=== PATIENT | male | born 1970 | race Caucasian/White ===

== ENCOUNTER 2016-12-21 10:13 | Inpatient (IN) | payer MEDICARE, MEDICAID ==
[2016-12-21] VITALS (7 sets, daily range): BP systolic 122–149; BP diastolic 66–83
[~2016-12-21] VITALS: Ht 157.5 cm; Wt 79.4 kg
[~2016-12-21 10:13] MED LIST: ALBUTEROL SULF8.5 GM INH; AMLODIPINE BESYL5 MG ORAL; ATORVASTATIN CA20 MG ORAL; BACK STABILIZE1 EACH MC; BETHANECHOL CHL10 MG ORAL; BETHANECHOL CHLO5 MG ORAL; CARVEDILOL6.25 MG ORAL; CELEXA20 MG ORAL; CLOZAPINE25 MG PO; CLOZARIL100 MG ORAL; COLACE100 MG ORAL; COREG6.25 MG ORAL; DEPAKOTE250 MG ORAL; DEPAKOTE500 MG PO; DIOVAN160 MG ORAL; DOCUSATE SODIU100 MG PO; DOK100 M2 PO; DOMEBORO PACKE1 EACH TP; DSS100 MG PO; ECONAZOLE NITRA15 GM TOP; FISH OIL 1,0001 EAC1 ORAL; IBUPROFEN600 MG ORAL; KEPPRA LIQ100 MG/1 M ORAL; KEPPRA LIQ100 MG/1 M PO; KEPPRA500 M3 ORAL; KEPPRA500 MG ORAL; KLONOPIN0.5 MG ORAL; KLONOPIN1 MG ORAL; LACTULOSE20 GM/301 ORAL; LEVETIRACE100 MG/1 M PO; LIPITOR20 MG ORAL; LOSARTAN POTASS50 MG ORAL; METOPROLOL TART25 MG ORAL; MIRALAX17 G2 ORAL; NAPROXEN500 M2 PO; NORVASC2.5 MG ORAL; OMEPRAZOLE20 M2 ORAL; OMEPRAZOLE40 M1 PO; PRILOSEC OTC20 MG ORAL; PRILOSEC20 MG ORAL; PRILOSEC40 MG ORAL; PROAIR HFA8.5 GM INH; RANITIDINE HCL150 MG ORAL; RESTORIL15 MG ORAL; SERTRALINE HCL25 MG ORAL; SETRALINE PO; SIMVASTATIN40 MG ORAL; TOPAMAX100 MG ORAL; TOPIRAGEN50 MG PO; TOPIRAMATE100 MG ORAL; TOPIRAMATE25 MG ORAL; TRAMADOL HCL50 MG ORAL; TRILEPTAL150 M2 ORAL; TRILEPTAL150 MG ORAL; TRILEPTAL150 MG PO; TRILEPTAL600 MG PO; UNOBMED; VITAMIN D35000 UNI2 PO; ZOCOR20 M1 ORAL; ZOCOR40 MG ORAL; ZOFRAN ODT4 MG ORAL; ZOLOFT25 MG ORAL; [UNRECOGNIZED DRUG - OTHER] TOPIC
[2016-12-21] MEDS ORDERED: LORazepam Inj 2mg/ml 1ml IV ONE ×2 (10:30→12:30)
[2016-12-21] MEDS ORDERED: levETIRAcetam 500 MG in D5W 110 ML IVPB ONE (10:30)
[2016-12-21] MEDS ORDERED: levETIRAcetam 500mg vial IV ONE (10:36)
--- NOTE | 2016-12-21 10:41 | Emergency Room Report ---
History of Present Illness General Chief Complaint: Seizure Source: Medical Record Present Illness HPI Patient presents with complaints of seizure activity Patient has known history of seizures Was here last in August with intractable seizures This was reportedly seen by family Patient himself was postictal and history is limited There was no reports of recent trauma No reports of recent fever Patient is beginning to become more awake Allergies: Coded Allergies: PHENYTOIN (Verified Allergy, Mild, Rash, 10/18/15) stated patient had a rash reaction to dilantin PENICILLINS (Unverified Allergy, Unknown, 01/29/16) TRAMADOL (Unverified Allergy, Unknown, 09/24/14) Patient History Limited by: medical condition Past Medical History: see triage record Pertinent Family History: unable to obtain Reviewed Nursing Documentation: PMH: Agreed, PSxH: Agreed Nursing Documentation-PMH Hx Cardiac Problems: Yes Hx Hypertension: Yes Hx Asthma: Yes Hx Diabetes: Yes Hx Cancer: No Hx Gastrointestinal Problems: Yes History Of Psychiatric Problem: Yes Hx Neurological Problems: Yes Hx Cerebrovascular Accident: Yes Hx Seizures: Yes Hx Epilepsy: Yes Hx Headaches: Yes Review of Systems All Other Systems: limited - Other than the ones mentioned in the history of present illness all others are reviewed however they do stay limited due to the patient's mental status Physical Exam Vital Signs Date Time Temp Pulse Resp B/P Pulse Ox O2 Delivery O2 Flow Rate FiO2 12/21/16 10:05 98.2 88 16 126/76 99 Room Air Sp02 EP Interpretation: reviewed, normal General Appearance: no apparent distress Head: normocephalic, atraumatic Eyes: bilateral eye EOMI, bilateral eye PERRL ENT: normal pharynx, dry mucus membranes Neck: supple, thyroid normal Respiratory: lungs clear Cardiovascular #1: regular rate, rhythm, no edema Gastrointestinal: soft, no mass Genitourinary: no CVA tenderness Musculoskeletal: normal inspection Neurologic: alert, oriented x3, responsive Skin: no rash Lymphatic: no adenopathy Medical Decision Making Diagnostic Impression: Primary Impression: Seizure disorder, complex partial, with intractable epilepsy ER Course Patient has had previous visit with the seizure activity At this time repeat imaging was not obtained initially Patient's baseline blood work are appropriate Antiepileptic medications are provided Patient did have seizure activity in the emergency room Prompting the need for further inpatient care Labs Test 12/21/16 10:40 12/21/16 11:15 12/22/16 05:30 12/22/16 07:05 White Blood Count 4.2 K/UL (4.8-10.8) 4.1 K/UL (4.8-10.8) Red Blood Count 5.31 M/UL (4.70-6.10) 5.96 M/UL (4.70-6.10) Hemoglobin 15.3 G/DL (14.2-18.0) 17.0 G/DL (14.2-18.0) Hematocrit 47.1 % (42.0-52.0) 52.7 % (42.0-52.0) Mean Corpuscular Volume 89 FL (80-99) 88 FL (80-99) Mean Corpuscular Hemoglobin 28.9 PG (27.0-31.0) 28.5 PG (27.0-31.0) Mean Corpuscular Hemoglobin Concent 32.6 G/DL (32.0-36.0) 32.3 G/DL (32.0-36.0) Red Cell Distribution Width 12.0 % (11.6-14.8) 11.8 % (11.6-14.8) Platelet Count 161 K/UL (150-450) 177 K/UL (150-450) Mean Platelet Volume 5.6 FL (6.5-10.1) 5.6 FL (6.5-10.1) Neutrophils (%) (Auto) 55.8 % (45.0-75.0) 59.1 % (45.0-75.0) Lymphocytes (%) (Auto) 27.3 % (20.0-45.0) 24.0 % (20.0-45.0) Monocytes (%) (Auto) 10.8 % (1.0-10.0) 10.0 % (1.0-10.0) Eosinophils (%) (Auto) 4.6 % (0.0-3.0) 5.5 % (0.0-3.0) Basophils (%) (Auto) 1.6 % (0.0-2.0) 1.3 % (0.0-2.0) Sodium Level 141 mEQ/L (135-145) 140 mEQ/L (135-145) Potassium Level 4.1 mEQ/L (3.4-4.9) 4.1 mEQ/L (3.4-4.9) Chloride Level 102 mEQ/L (98-107) 99 mEQ/L (98-107) Carbon Dioxide Level 21 mEQ/L (20-30) 22 mEQ/L (20-30) Anion Gap 18 (5-15) 19 (5-15) Blood Urea Nitrogen 8 mg/dL (7-23) 6 mg/dL (7-23) Creatinine 0.7 mg/dL (0.7-1.2) 0.7 mg/dL (0.7-1.2) Estimat Glomerular Filtration Rate > 60 mL/min (>60) > 60 mL/min (>60) Glucose Level 91 mg/dL (74-106) 99 mg/dL (74-106) Calcium Level 9.2 mg/dL (8.6-10.2) 9.7 mg/dL (8.6-10.2) Total Bilirubin < 0.2 mg/dL (0.0-1.2) Aspartate Amino Transf (AST/SGOT) 16 U/L (5-40) Alanine Aminotransferase (ALT/SGPT) 14 U/L (3-41) Alkaline Phosphatase 62 U/L (40-129) Total Creatine Kinase 99 U/L (38-174) Creatine Kinase MB 1.6 ng/mL (< 6.7) Creatine Kinase MB Relative Index 1.6 Troponin I < 0.30 ng/mL (<=0.30) Total Protein 7.0 g/dL (6.6-8.7) Albumin 4.2 g/dL (3.5-5.2) Globulin 2.8 g/dL Albumin/Globulin Ratio 1.5 (1.0-2.7) Lipase 25 U/L (< 60) Urine Color Pale yellow Urine Appearance Clear Urine pH 8 (4.5-8.0) Urine Specific [place] 1.015 (1.005-1.035) Urine Protein Negative (NEGATIVE) Urine Glucose (UA) Negative (NEGATIVE) Urine Ketones 1+ (NEGATIVE) Urine Occult Blood Negative (NEGATIVE) Urine Nitrite Negative (NEGATIVE) Urine Bilirubin Negative (NEGATIVE) Urine Urobilinogen Normal MG/DL (0.0-1.0) Urine Leukocyte Esterase Negative (NEGATIVE) Urine Opiates Screen Negative (NEGATIVE) Urine Barbiturates Screen Positive (NEGATIVE) Phencyclidine (PCP) Screen Negative (NEGATIVE) Urine Amphetamines Screen Negative (NEGATIVE) Urine Benzodiazepines Screen Negative (NEGATIVE) Urine Cocaine Screen Negative (NEGATIVE) Urine Marijuana (THC) Screen Negative (NEGATIVE) Valproic Acid (Depakene) Level 70 ug/mL (50-100) Test 12/23/16 05:00 White Blood Count 4.8 K/UL (4.8-10.8) Red Blood Count 5.02 M/UL (4.70-6.10) Hemoglobin 14.4 G/DL (14.2-18.0) Hematocrit 44.0 % (42.0-52.0) Mean Corpuscular Volume 88 FL (80-99) Mean Corpuscular Hemoglobin 28.7 PG (27.0-31.0) Mean Corpuscular Hemoglobin Concent 32.8 G/DL (32.0-36.0) Red Cell Distribution Width 11.6 % (11.6-14.8) Platelet Count 156 K/UL (150-450) Mean Platelet Volume 6.0 FL (6.5-10.1) Neutrophils (%) (Auto) 51.4 % (45.0-75.0) Lymphocytes (%) (Auto) 32.5 % (20.0-45.0) Monocytes (%) (Auto) 9.3 % (1.0-10.0) Eosinophils (%) (Auto) 5.4 % (0.0-3.0) Basophils (%) (Auto) 1.3 % (0.0-2.0) Sodium Level 134 mEQ/L (135-145) Potassium Level 3.7 mEQ/L (3.4-4.9) Chloride Level 95 mEQ/L (98-107) Carbon Dioxide Level 24 mEQ/L (20-30) Anion Gap 15 (5-15) Blood Urea Nitrogen 10 mg/dL (7-23) Creatinine 0.6 mg/dL (0.7-1.2) Estimat Glomerular Filtration Rate > 60 mL/min (>60) Glucose Level 93 mg/dL (74-106) Calcium Level 8.6 mg/dL (8.6-10.2) Valproic Acid (Depakene) Level 80 ug/mL (50-100) Rhythm Strip Diag. Results EP Interpretation: yes Rate: 77 Rhythm: NSR, no PVC's, no ectopy Chest X-Ray Diagnostic Results EP Interpretation: Yes Findings: no consolidation, no effusion, no pneumothorax Number of Views: 1 Last Vital Signs Date Time Temp Pulse Resp B/P Pulse Ox O2 Delivery O2 Flow Rate FiO2 12/21/16 10:05 98.2 88 16 126/76 99 Room Air Status: improved Disposition: ADMITTED INPATIENT Condition: Serious AMINATA MONCADA D.O. Dec 21, 2016 10:41
[2016-12-21 11:01] LABS: BASOPHILS % (AUTO) 1.6 % (0.0-2.0); EOSINOPHILS % (AUTO) 4.6 % (0.0-3.0); LYMPHOCYTES % (AUTO) 27.3 % (20.0-45.0); MEAN CORPUSCULAR HEMOGLOBIN 28.9 PG (27.0-31.0); MEAN CORPUSCULAR HGB CONC 32.6 G/DL (32.0-36.0); MEAN CORPUSCULAR VOLUME 89 FL (80-99); MEAN PLATELET VOLUME 5.6 FL (6.5-10.1); MONOCYTES % (AUTO) 10.8 % (1.0-10.0); NEUTROPHILS % (AUTO) 55.8 % (45.0-75.0); PLATELET COUNT 161 K/UL (150-450); RED BLOOD COUNT 5.31 M/UL (4.70-6.10); WHITE BLOOD COUNT 4.2 K/UL (4.8-10.8)
[2016-12-21 11:06] LABS: ALANINE AMINOTRANSFERASE 14 U/L (3-41); ALBUMIN/GLOBULIN RATIO 1.5 (1.0-2.7); ANION GAP 18 (5-15); ASPARTATE AMINO TRANSFERASE 16 U/L (5-40); CALCIUM 9.2 mg/dL (8.6-10.2); CARBON DIOXIDE 21 mEQ/L (20-30); CHLORIDE 102 mEQ/L (98-107); CREATININE 0.7 mg/dL (0.7-1.2); GLOMERULAR FILTRATION RATE > 60 mL/min (>60); HEMOLYSIS 10; LIPASE 25 U/L (< 60); POTASSIUM 4.1 mEQ/L (3.4-4.9); SODIUM 141 mEQ/L (135-145); TROPONIN I < 0.30 ng/mL (<=0.30)
[2016-12-21 11:16] LABS: CKMB 1.6 ng/mL (< 6.7)
[2016-12-21 11:33] LABS: APPEARANCE,URINE CLEAR; KETONES,URINE 1+ (NEGATIVE); LEUKOCYTE ESTERASE ,URINE NEGATIVE (NEGATIVE); NITRITE,URINE NEGATIVE (NEGATIVE); PH,URINE 8 (4.5-8.0); PROTEIN,URINE NEGATIVE (NEGATIVE); UROBILINOGEN,URINE NORMAL MG/DL (0.0-1.0)
--- NOTE | 2016-12-21 12:09 | Diagnostic Imaging Report ---
Indication: Chest pain Technique: One view of the chest Comparison: 08/31/2016 Findings: Slightly better inspiration on the current exam. Lungs and pleural spaces are clear. Previously demonstrated pulmonary vascular prominence is not evident. The heart size is normal Impression: No acute process
[2016-12-21] MEDS ORDERED: Lidocaine 1% Plain 30 ml INJ ONE (13:00)
[2016-12-21] MEDS ORDERED: Heparin 2000 units/Ns 1000ml IV ONE (13:00)
--- NOTE | 2016-12-21 14:10 | Diagnostic Imaging Report ---
Indications: Needs long-term IV access Technique: Ultrasound confirms patent compressible right basilic vein. Total sterile technique, including sterile probe cover and sterile gel, hat, mask,, sterile gown, large sterile drape, and preparation with 2% chlorhexidine utilized. Local anesthesia with 1% lidocaine. Under real-time ultrasound guidance, puncture is a vein using 21-gauge needle, documented and archived, passage 0.018 guidewire under direct fluoroscopy, which was used to determine appropriate catheter length, exchange for 5 Wallisian peel-away sheath. 5 Wallisian Bard dual-lumen power PICC cut to 37 cm. It was inserted through the peel-away sheath. Peel-away sheath and guidewire removed. Catheter fixed to the skin. Both catheter ports aspirated and flushed. Patient tolerated procedure well, without immediate complication. Digital radiograph documents satisfactory catheter tip position, at the cavoatrial junction. Total fluoroscopy time there are 0.7 minutes. Total dose area product 32 dGycm2 Impression: Successful placement of right arm PICC under sonographic and fluoroscopic guidance, as described above.
[2016-12-21] MEDS ORDERED: Norco 5mg/325mg tab ORAL PRN (17:30)
[2016-12-21] MEDS ORDERED: Albuterol 90mcg Inhaler 8gm INH PRN (17:30)
[2016-12-21] MEDS: LORazepam Inj 2mg/ml 1ml IV PRN (20:45)
[2016-12-21] MEDS: Atorvastatin 20mg tab ORAL SCH (20:48)
[2016-12-21] MEDS: Bethanechol 10mg Tab ORAL SCH (20:49)
[2016-12-22] VITALS: BP 128/80
--- NOTE | 2016-12-22 02:58 | History and Physical Report ---
DATE OF ADMISSION: 12/21/2016 CHIEF COMPLAINT: The patient is a 46-year-old male with a history of seizure disorder, who presents with a chief complaint of seizure. HISTORY OF PRESENT ILLNESS: The patient has a history of seizure disorder. The patient was last admitted to [facility] in August 2016 after having a seizure. The patient presented to [facility] emergency room after having a witnessed seizure at home. The patient then had a seizure in the emergency room. The patient is admitted for breakthrough seizures and seizure disorder. REVIEW OF SYSTEMS: Constitutional: The patient denies weight loss or weight gain. The patient denies fevers or chills. HEENT: The patient denies ear or throat pain. Cardiovascular: The patient denies palpitations or chest pain. Chest: The patient denies wheeze or shortness of breath. Abdomen: The patient denies nausea, vomiting, diarrhea, or constipation. Genitourinary: The patient denies dysuria or increased frequency of urination. Neuromuscular: The patient complains of seizure disorders as above. The patient denies generalized weakness. PAST MEDICAL HISTORY: Significant for, 1. Seizure disorder. 2. Hypertension. 3. Hypercholesterolemia. PAST SURGICAL HISTORY: Significant for nasal septal plasty. CURRENT MEDICATIONS: 1. Albuterol metered-dose inhaler two puffs p.o. q.i.d. p.r.n. 2. Amlodipine 2.5 mg one tablet p.o. daily. 3. Lipitor 20 mg one tablet p.o. nightly. 4. Bethanechol 10 mg one tablet p.o. three times daily. 5. Calcium acetate one packet p.o. daily. 6. Vitamin D3 5000 units daily. 7. Klonopin 1 mg one tablet p.o. nightly. 8. Depakote 500 mg one tablet p.o. twice daily. 9. Ibuprofen 800 mg one tablet by mouth q.8 hours. p.r.n. 10. Keppra 1000 mg p.o. twice daily. 11. Losartan 50 mg one tablet p.o. daily. 12. Fish oil 1000 mg one tablet p.o. daily. 13. Omeprazole 40 mg one tablet p.o. daily. 14. Zantac 150 mg one tablet p.o. twice daily. 15. Zoloft 25 mg one tablet p.o. daily. 16. Restoril 15 mg one tablet p.o. nightly. 17. Topamax 25 mg one tablet p.o. daily. ALLERGIES: 1. PENICILLIN. 2. DILANTIN. 3. TRAMADOL. SOCIAL HISTORY: The patient is single. The patient is currently unemployed. The patient denies tobacco use. The patient admits to occasional alcohol use. PHYSICAL EXAMINATION: VITAL SIGNS: Temperature 98.2, respirations 16, pulse 92, blood pressure 142/76. GENERAL: The patient is a well-developed and well-nourished male, in no apparent distress. HEENT: Eyes, pupils are equal and responsive to light and accommodation. Extraocular movements are intact. NECK: Supple without lymphadenopathy. CHEST: Lungs are clear to auscultation bilaterally without wheezes or rales. CARDIOVASCULAR: Regular rhythm and rate. S1 and S2 are normal without murmurs, rubs, or gallops. . ABDOMEN: Soft, nontender, and nondistended. Positive bowel sounds. No evidence of hepatosplenomegaly. Currently, no rebound or guarding noted. EXTREMITIES: Negative for clubbing, cyanosis, or edema. RECTAL/GENITAL: Refused. NEUROLOGICALLY: The patient is postictal. NEUROLOGIC: Cranial nerves II through XII are grossly intact without focal deficits. Motor strength is 5/5 bilaterally. Deep tendon reflexes are 2+ plantar. LABORATORY STUDIES: WBC 4.2, hemoglobin 15.2, hematocrit 47.1, platelets 161,000, sodium 141, potassium 4.1, chloride 102, CO2 21, BUN 18, creatinine 0.7, and glucose 91. Troponin less than 0.3. ASSESSMENT: This is a 46-year-old male. 1. Intractable seizure. 2. Seizure disorder. 3. Hypertension. 4. Hypercholesterolemia. 5. Left shoulder pain. 6. Depression. TREATMENT: 1. Seizure disorder. A Neurology consultation obtained with Dr. Martínez. Restart Keppra and Depakote as above. Depakote level is pending. We will follow recommendations of Neurology. The patient may require an EEG during this hospitalization. 2. Hypertension. Continue Cozaar and Norvasc as above. 3. Hypercholesterolemia. Continue Lipitor as above. 4. Left shoulder pain. A left shoulder x-ray is pending. 5. Depression. Continue Zoloft as above. Jimmie Lang M.D. DR: ISAIAS JOB#: [id number] CC: HARRY
[2016-12-22 04:00] VITALS: BP 129/88
[2016-12-22 07:47] LABS: BASOPHILS % (AUTO) 1.3 % (0.0-2.0); EOSINOPHILS % (AUTO) 5.5 % (0.0-3.0); MEAN CORPUSCULAR HEMOGLOBIN 28.5 PG (27.0-31.0); MEAN CORPUSCULAR HGB CONC 32.3 G/DL (32.0-36.0); MEAN CORPUSCULAR VOLUME 88 FL (80-99); MEAN PLATELET VOLUME 5.6 FL (6.5-10.1); NEUTROPHILS % (AUTO) 59.1 % (45.0-75.0); PLATELET COUNT 177 K/UL (150-450); RED BLOOD COUNT 5.96 M/UL (4.70-6.10); RED CELL DISTRIBUTION WIDTH 11.8 % (11.6-14.8); WHITE BLOOD COUNT 4.1 K/UL (4.8-10.8)
[2016-12-22 07:57] VITALS: BP 136/98
[2016-12-22 08:06] LABS: ANION GAP 19 (5-15); CALCIUM 9.7 mg/dL (8.6-10.2); CARBON DIOXIDE 22 mEQ/L (20-30); CHLORIDE 99 mEQ/L (98-107); CREATININE 0.7 mg/dL (0.7-1.2); GLOMERULAR FILTRATION RATE > 60 mL/min (>60); HEMOLYSIS 8; POTASSIUM 4.1 mEQ/L (3.4-4.9); SODIUM 140 mEQ/L (135-145)
[2016-12-22] MEDS ORDERED: Sertraline 50mg tab ORAL SCH (09:00)
[2016-12-22] MEDS ORDERED: Topiramate 25mg tab ORAL SCH (09:00)
[2016-12-22] MEDS: Bethanechol 10mg Tab ORAL SCH ×3 (09:02→17:17)
[2016-12-22] MEDS: Losartan 50mg tab ORAL SCH (09:03)
[2016-12-22] MEDS: Norco 10mg/325mg tab ORAL PRN ×2 (09:07→13:42)
--- NOTE | 2016-12-22 10:48 | History & Physical ---
History and Physical History & Physicial Dictated no. [id number]. EUGENIO OROZCO Dec 22, 2016 10:48
--- NOTE | 2016-12-22 10:49 | Diagnostic Imaging Report ---
Indication: PAIN Technique: 3 views of the left shoulder Comparison: none Findings: No acute fractures. No dislocations. Joint spaces are preserved Impression:Negative
--- NOTE | 2016-12-22 11:05 | Internal Med Progress Note ---
Subjective Date of Service: Dec 22, 2016 Physician Name Jimmie Orozco Attending Physician Jimmie Orozco Current Medications Medications (Trade) Dose Ordered Sig/Rufus Route PRN Reason Start Time Stop Time Status Last Admin Dose Admin Acetaminophen (Tylenol) 650 mg Q4H PRN ORAL Mild Pain (Pain Scale 1-3) 12/21/16 17:30 01/20/17 17:29 Acetaminophen/ Hydrocodone Bitart ([place] 10/325) 1 ea Q4H PRN ORAL Severe Pain (Pain Scale 7-10) 12/21/16 17:30 12/28/16 17:29 12/22/16 09:07 Acetaminophen/ Hydrocodone Bitart ([place] 5/325) 1 tab Q4H PRN ORAL Moderate Pain (Pain Scale 4-6) 12/21/16 17:30 12/28/16 17:29 Albuterol Sulfate (Proventil MDI) 2 puff Q6H PRN INH Shortness of Breath 12/21/16 17:30 01/20/17 17:29 Amlodipine Besylate (Norvasc) 2.5 mg DAILY ORAL 12/22/16 09:00 01/21/17 08:59 12/22/16 09:03 Atorvastatin Calcium (Lipitor) 20 mg BEDTIME ORAL 12/21/16 21:00 01/20/17 20:59 12/21/16 20:48 Bethanechol Chloride (Urecholine) 10 mg THREE TIMES A DAY ORAL 12/21/16 21:00 01/20/17 20:59 12/22/16 09:02 Dextrose (Dextrose 50%) STAT PRN IV Hypoglycemia 12/21/16 17:30 01/20/17 17:29 Divalproex Sodium (Depakote) 750 mg Q12HR ORAL 12/21/16 21:00 01/20/17 20:59 12/22/16 09:03 Fish Oil (Fish Oil) 1,000 mg DAILY ORAL 12/22/16 09:00 01/21/17 08:59 12/22/16 09:02 Levetiracetam (Keppra) 1,000 mg Q12HR ORAL 12/21/16 21:00 01/20/17 20:59 12/22/16 09:03 Lorazepam (Ativan 2mg/ml 1ml) 2 mg Q4H PRN IV For Seizures 12/21/16 18:00 12/28/16 17:59 12/21/16 20:45 Losartan Potassium (Cozaar) 50 mg DAILY ORAL 12/22/16 09:00 01/21/17 08:59 12/22/16 09:03 Pantoprazole (Protonix) 40 mg DAILY ORAL 12/22/16 09:00 01/21/17 08:59 12/22/16 09:03 Sertraline HCl (Zoloft) 25 mg DAILY ORAL 12/22/16 09:00 01/21/17 08:59 12/22/16 09:02 Sodium Chloride (0.45% NS 1000ml) 1,000 ml @ 75 mls/hr [id number] IV 12/21/16 19:15 01/20/17 19:14 12/22/16 08:59 Topiramate (Topamax) 25 mg DAILY ORAL 12/22/16 09:00 01/21/17 08:59 12/22/16 09:03 Allergies: Coded Allergies: PHENYTOIN (Verified Allergy, Mild, Rash, 10/18/15) stated patient had a rash reaction to dilantin PENICILLINS (Unverified Allergy, Unknown, 01/29/16) TRAMADOL (Unverified Allergy, Unknown, 09/24/14) ROS Limited/Unobtainable: No Constitutional: Reports: no symptoms HEENT: Reports: no symptoms Cardiovascular: Reports: no symptoms Respiratory: Reports: no symptoms Gastrointestinal/Abdominal: Reports: no symptoms Genitourinary: Reports: no symptoms Neurologic/Psychiatric: Reports: no symptoms Subjective 46 YO M admitted with seizure. Another witnessed seizure overnight. Await Neurology consult. Objective Last Vital Signs Date Time Temp Pulse Resp B/P Pulse Ox O2 Delivery O2 Flow Rate FiO2 12/22/16 09:03 136/98 12/22/16 09:03 78 12/22/16 07:57 97.3 20 96 Room Air 12/22/16 04:00 2.0 28 General Appearance: WD/WN, no apparent distress, other - Postictal EENT: PERRL/EOMI, normal ENT inspection, TMs normal Neck: non-tender, normal alignment, supple, normal inspection Cardiovascular: normal peripheral pulses, normal rate, regular rhythm, no gallop/murmur, no JVD Respiratory/Chest: chest wall non-tender, lungs clear, normal breath sounds, no respiratory distress, no accessory muscle use Abdomen: normal bowel sounds, non tender, soft, no organomegaly, no mass Extremities: normal range of motion 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, no motor/sensory deficits, other - postictal Skin: normal pigmentation, warm/dry Laboratory Tests Test 12/21/16 11:15 12/22/16 05:30 12/22/16 07:05 Urine Color Pale yellow Urine Appearance Clear Urine pH 8 (4.5-8.0) Urine Specific [place] 1.015 (1.005-1.035) Urine Protein Negative (NEGATIVE) Urine Glucose (UA) Negative (NEGATIVE) Urine Ketones 1+ (NEGATIVE) H Urine Occult Blood Negative (NEGATIVE) Urine Nitrite Negative (NEGATIVE) Urine Bilirubin Negative (NEGATIVE) Urine Urobilinogen Normal MG/DL (0.0-1.0) Urine Leukocyte Esterase Negative (NEGATIVE) Urine Opiates Screen Negative (NEGATIVE) Urine Barbiturates Screen Positive (NEGATIVE) H Phencyclidine (PCP) Screen Negative (NEGATIVE) Urine Amphetamines Screen Negative (NEGATIVE) Urine Benzodiazepines Screen Negative (NEGATIVE) Urine Cocaine Screen Negative (NEGATIVE) Urine Marijuana (THC) Screen Negative (NEGATIVE) White Blood Count 4.1 K/UL (4.8-10.8) L Red Blood Count 5.96 M/UL (4.70-6.10) Hemoglobin 17.0 G/DL (14.2-18.0) Hematocrit 52.7 % (42.0-52.0) H Mean Corpuscular Volume 88 FL (80-99) Mean Corpuscular Hemoglobin 28.5 PG (27.0-31.0) Mean Corpuscular Hemoglobin Concent 32.3 G/DL (32.0-36.0) Red Cell Distribution Width 11.8 % (11.6-14.8) Platelet Count 177 K/UL (150-450) Mean Platelet Volume 5.6 FL (6.5-10.1) L Neutrophils (%) (Auto) 59.1 % (45.0-75.0) Lymphocytes (%) (Auto) 24.0 % (20.0-45.0) Monocytes (%) (Auto) 10.0 % (1.0-10.0) Eosinophils (%) (Auto) 5.5 % (0.0-3.0) H Basophils (%) (Auto) 1.3 % (0.0-2.0) Sodium Level 140 mEQ/L (135-145) Potassium Level 4.1 mEQ/L (3.4-4.9) Chloride Level 99 mEQ/L (98-107) Carbon Dioxide Level 22 mEQ/L (20-30) Anion Gap 19 (5-15) H Blood Urea Nitrogen 6 mg/dL (7-23) L Creatinine 0.7 mg/dL (0.7-1.2) Estimat Glomerular Filtration Rate > 60 mL/min (>60) Glucose Level 99 mg/dL (74-106) Calcium Level 9.7 mg/dL (8.6-10.2) Valproic Acid (Depakene) Level 70 ug/mL (50-100) Intake and Output 12/21/16 12/22/16 19:00 07:00 Intake Total 1460 ml 900 ml Output Total 750 ml 1300 ml Balance 710 ml -400 ml IV Total 1460 ml 900 ml Output Urine Total 750 ml 1300 ml # Voids 3 # Bowel Movements 1 Assessment/Plan Problem List: (1) Shoulder pain, left Assessment & Plan: Await xray. (2) Seizure disorder Assessment & Plan: Await neurology consult. Cont keppra and depakote. (3) HTN (hypertension) Assessment & Plan: Cont norvasc and Cozaar. (4) Uncontrolled seizures (5) Hypercholesteremia (6) Depression Assessment & Plan: Cont zoloft. JIMMIE OROZCO Dec 22, 2016 11:05
[2016-12-22 11:21] VITALS: BP 121/77
--- NOTE | 2016-12-22 11:30 | Neurology Progress Note ---
Interim History Interim History ROS Limited/Unobtainable: No Objective Physical Exam Last Vital Signs Date Time Temp Pulse Resp B/P Pulse Ox O2 Delivery O2 Flow Rate FiO2 12/22/16 11:21 97.7 83 20 121/77 98 Room Air 12/22/16 04:00 2.0 28 Laboratory Tests Test 12/22/16 05:30 12/22/16 07:05 White Blood Count 4.1 K/UL (4.8-10.8) L Red Blood Count 5.96 M/UL (4.70-6.10) Hemoglobin 17.0 G/DL (14.2-18.0) Hematocrit 52.7 % (42.0-52.0) H Mean Corpuscular Volume 88 FL (80-99) Mean Corpuscular Hemoglobin 28.5 PG (27.0-31.0) Mean Corpuscular Hemoglobin Concent 32.3 G/DL (32.0-36.0) Red Cell Distribution Width 11.8 % (11.6-14.8) Platelet Count 177 K/UL (150-450) Mean Platelet Volume 5.6 FL (6.5-10.1) L Neutrophils (%) (Auto) 59.1 % (45.0-75.0) Lymphocytes (%) (Auto) 24.0 % (20.0-45.0) Monocytes (%) (Auto) 10.0 % (1.0-10.0) Eosinophils (%) (Auto) 5.5 % (0.0-3.0) H Basophils (%) (Auto) 1.3 % (0.0-2.0) Sodium Level 140 mEQ/L (135-145) Potassium Level 4.1 mEQ/L (3.4-4.9) Chloride Level 99 mEQ/L (98-107) Carbon Dioxide Level 22 mEQ/L (20-30) Anion Gap 19 (5-15) H Blood Urea Nitrogen 6 mg/dL (7-23) L Creatinine 0.7 mg/dL (0.7-1.2) Estimat Glomerular Filtration Rate > 60 mL/min (>60) Glucose Level 99 mg/dL (74-106) Calcium Level 9.7 mg/dL (8.6-10.2) Valproic Acid (Depakene) Level 70 ug/mL (50-100) Impression/Recommendations Problems: (1) Seizure disorder, complex partial, with intractable epilepsy (2) Pseudoseizures (3) Development delay (4) DM (diabetes mellitus) (5) Obesity Status: not improved Recommendations #[id number] WYATT VIVAR Dec 22, 2016 11:30
[2016-12-22] MEDS ORDERED: Tubing IV Secondary IV ONE (13:59)
[2016-12-22] MEDS ORDERED: NS 275ml ONE (13:59)
[2016-12-22] MEDS ORDERED: 1/2 NS 1000ml IV ONE (13:59)
[2016-12-22 16:00] VITALS: BP 134/79
[2016-12-22] MEDS: LORazepam Inj 2mg/ml 1ml IV PRN (19:33)
[2016-12-22 20:00] VITALS: BP 132/89
[2016-12-22] MEDS: Atorvastatin 20mg tab ORAL SCH (20:05)
--- NOTE | 2016-12-22 20:37 | Consultation ---
DATE OF CONSULTATION: 12/22/2016 NEUROLOGICAL CONSULTATION CONSULTING PHYSICIAN: Nikunj Martínez M.D. REQUESTING PHYSICIAN: Jimmie Lang M.D. HISTORY OF PRESENT ILLNESS: This is a 46-year-old man, resident of [facility], who was admitted for exacerbation of seizure disorder. The patient is known to have a chronic seizure, poorly controllable with three anticonvulsants. At the emergency room, he had a generalized seizure episode. Paramedics were called to the scene, who was found to be down the block where he lives. A operator engineer arrived to the scene explaining that the patient would faint a seizure whenever he is out of the house in an effort to go back to the . While back in the rescue, he started to have shaking of arms and legs stimulating a seizure. When handed his wallet, his hand articulated to maintain a ripening room operator on it and placed it into his pant pocket. He would interrupt his tremor answering questions. The patient maintained bilateral arms and leg movement with a good facial asymmetry. Complaining of headache. Upon arrival to the hospital, he was becoming more verbal. His vital signs were stable. He was afebrile. He was complaining of a shoulder pain and x-ray of the left shoulder revealed no fracture or dislocation. His chest x-ray with no acute process noted. There was no further paroxysmal activity since admission. The patient appeared to be quite drowsy. PAST MEDICAL HISTORY: The patient has a history of mild dementia, chronic seizure disorder, and multiple CT scans in the past were negative. He has a history of hypertension, history of hyperlipidemia, history of chronic alcohol abuse, and history of depression. The patient has a history of noncompliance, withdrawal of seizures, and history of pseudoseizures. MEDICATIONS: His treatment prior to admission included amlodipine, albuterol, atorvastatin, bethanechol, clonazepam 1 mg at bedtime and 0.5 q.6 hours, Depakote mg b.i.d., ibuprofen, Keppra 1000 mg b.i.d., losartan, omeprazole, ranitidine, sertraline 25 mg daily, Zocor, and topiramate 25 mg daily. ALLERGIES: Penicillin, phenytoin, and tramadol. SOCIAL HISTORY: Resident of [facility]. FAMILY HISTORY: Noncontributory. REVIEW OF SYSTEMS: Complains of pain and aches in his upper extremities mainly in the left shoulder. Complains of having, "seizures the whole day long." He is still verbal. Output was limited. PHYSICAL EXAMINATION: GENERAL: A well-developed, moderately obese man, and found to be asleep. VITAL SIGNS: Stable. He is afebrile. HEENT: Head normocephalic. No evidence of trauma. Eyes, ears, and throat are clear. NECK: Supple. No meningeal signs. Tongue, no signs of injury or trauma. EXTREMITIES: There is acute tenderness when palpated in both shoulders and both arms predominantly left shoulder with the pain increasing with attempting to lift arms. MUSCULOSKELETAL: Peripheral pulses 1+ and symmetric. MENTAL STATUS: Drowsy, but arousable. Briefly open eyes and follows simple command. CRANIAL NERVE II: Pupils both responding to light and accommodation. Extraocular movement intact. CRANIAL NERVE V: Normal corneal responses. CRANIAL NERVE VII: No facial asymmetry. CRANIAL NERVE VIII: Grossly normal hearing. CRANIAL NERVES IX THROUGH XII: With normal limits. MOTOR EXAMINATION: Normal muscle tone. Strength 5/5 in all extremities except proximal aspect of both arms due to pain. Deep tendon reflexes 1+ and symmetric with downgoing toes on both sides. SENSORY EXAM: Normal in all modalities. GAIT: Not tested. IMPRESSION: 1. Chronic seizure disorder with evidence of pseudoseizures, now presenting with exacerbation in the presence of therapeutic level of Depakote. 2. Both upper extremity musculoligamentous sprain. 3. Hypertension. 4. History of substance abuse. 5. Depression. RECOMMENDATION: Adjust further Keppra to 1500 b.i.d. Increase Topamax up to 100 mg daily and to be titrated further up to 300 mg daily. Due to high risk of psychosomatic seizure disorder, will need a Psychiatry evaluation to adjust the treatment of depression properly. We will follow with you. Thank you for allowing me to see this interesting patient in neurological consultation. Nikunj Martínez M.D. DR: CANDIDO JOB#: [id number] CC:
--- NOTE | 2016-12-22 23:11 | Cardiology Report ---
APPROVED REPORT EKG Measurement Heart [id number] Normal sinus rhythm Normal ECG
[2016-12-23] VITALS (7 sets, daily range): BP systolic 117–131; BP diastolic 61–91
--- NOTE | 2016-12-23 00:08 | Consultation ---
DATE OF CONSULTATION: HISTORY OF PRESENT ILLNESS: The patient is a 46-year-old male with a history of seizure disorder as well as depression, developmental delay, back pain, headache, hypokalemia, and constipation, who has been admitted to the hospital for medical stabilization. The patient has a history of noncompliance and therefore he has recurrent episodes of seizure activity. During the evaluation, the patient endorses target symptoms of depressed mood, anhedonia, worthlessness, hopelessness, decreased energy, and poor coping skills. The patient has also poor insight into his medical condition I irritated him in regards to his seizure disorder. He really does not believe that he needs medication. He was he started on antidepressants and this may motivate him to take his medications regularly. He does not endorse any suicidal or homicidal ideation. PAST PSYCHIATRIC HISTORY: He has a history of depressed mood. He was started on Zoloft 25 mg in the morning and then it was increased to 50 mg a day. No suicide attempt in the past. PAST MEDICAL HISTORY: As above. SUBSTANCE ABUSE HISTORY: No known history of illicit drugs or alcohol. MENTAL STATUS EXAMINATION: The patient is alert and oriented x4. Mood is depressed. Affect is constricted. Congruent mood. Thought process is concrete. Thought content, there is no suicidal or homicidal ideation. Insight and judgment is fair ASSESSMENT: AXIS I Major depressive disorder. AXIS II Deferred. AXIS III Seizure disorder. AXIS IV Low. AXIS V Global assessment of functioning is 50. PLAN: 1. The patient will be continued on Zoloft 50 mg in the morning. The Depakote and Topamax will also help his mood. 2. We will continue follow and readjust the medication. Katarzyna Valle M.D. DR: Kerry JOB#: [id number] CC:
[2016-12-23 05:25] LABS: BASOPHILS % (AUTO) 1.3 % (0.0-2.0); EOSINOPHILS % (AUTO) 5.4 % (0.0-3.0); LYMPHOCYTES % (AUTO) 32.5 % (20.0-45.0); MEAN CORPUSCULAR HEMOGLOBIN 28.7 PG (27.0-31.0); MEAN CORPUSCULAR HGB CONC 32.8 G/DL (32.0-36.0); MEAN CORPUSCULAR VOLUME 88 FL (80-99); MONOCYTES % (AUTO) 9.3 % (1.0-10.0); NEUTROPHILS % (AUTO) 51.4 % (45.0-75.0); PLATELET COUNT 156 K/UL (150-450); RED BLOOD COUNT 5.02 M/UL (4.70-6.10); RED CELL DISTRIBUTION WIDTH 11.6 % (11.6-14.8); WHITE BLOOD COUNT 4.8 K/UL (4.8-10.8)
[2016-12-23 05:52] LABS: ANION GAP 15 (5-15); CALCIUM 8.6 mg/dL (8.6-10.2); CARBON DIOXIDE 24 mEQ/L (20-30); CHLORIDE 95 mEQ/L (98-107); CREATININE 0.6 mg/dL (0.7-1.2); GLOMERULAR FILTRATION RATE > 60 mL/min (>60); HEMOLYSIS 3; POTASSIUM 3.7 mEQ/L (3.4-4.9); SODIUM 134 mEQ/L (135-145); VALPROIC ACID 80 ug/mL (50-100)
[2016-12-23] MEDS: Bethanechol 10mg Tab ORAL SCH ×3 (08:59→17:49)
[2016-12-23] MEDS: Losartan 50mg tab ORAL SCH (08:59)
[2016-12-23] MEDS ORDERED: Topiramate 100mg tab ORAL SCH (09:00)
[2016-12-23] MEDS: Sertraline 50mg tab ORAL SCH (09:01)
[2016-12-23] MEDS: LORazepam Inj 2mg/ml 1ml IV PRN ×4 (14:01→20:48)
--- NOTE | 2016-12-23 14:06 | Neurology Progress Note ---
Interim History Interim History ROS Limited/Unobtainable: No Complaints: L shoulder pain, depression. Events: no sz noted Objective Physical Exam Last Vital Signs Date Time Temp Pulse Resp B/P Pulse Ox O2 Delivery O2 Flow Rate FiO2 12/23/16 12:00 97.0 87 17 130/85 97 Room Air 12/23/16 08:00 2.0 12/22/16 04:00 28 Laboratory Tests Test 12/23/16 05:00 White Blood Count 4.8 K/UL (4.8-10.8) Red Blood Count 5.02 M/UL (4.70-6.10) Hemoglobin 14.4 G/DL (14.2-18.0) Hematocrit 44.0 % (42.0-52.0) Mean Corpuscular Volume 88 FL (80-99) Mean Corpuscular Hemoglobin 28.7 PG (27.0-31.0) Mean Corpuscular Hemoglobin Concent 32.8 G/DL (32.0-36.0) Red Cell Distribution Width 11.6 % (11.6-14.8) Platelet Count 156 K/UL (150-450) Mean Platelet Volume 6.0 FL (6.5-10.1) L Neutrophils (%) (Auto) 51.4 % (45.0-75.0) Lymphocytes (%) (Auto) 32.5 % (20.0-45.0) Monocytes (%) (Auto) 9.3 % (1.0-10.0) Eosinophils (%) (Auto) 5.4 % (0.0-3.0) H Basophils (%) (Auto) 1.3 % (0.0-2.0) Sodium Level 134 mEQ/L (135-145) L Potassium Level 3.7 mEQ/L (3.4-4.9) Chloride Level 95 mEQ/L (98-107) L Carbon Dioxide Level 24 mEQ/L (20-30) Anion Gap 15 (5-15) Blood Urea Nitrogen 10 mg/dL (7-23) Creatinine 0.6 mg/dL (0.7-1.2) L Estimat Glomerular Filtration Rate > 60 mL/min (>60) Glucose Level 93 mg/dL (74-106) Calcium Level 8.6 mg/dL (8.6-10.2) Valproic Acid (Depakene) Level 80 ug/mL (50-100) Levetiracetam (Keppra) Level Pending General: well developed, no acute distress, other - obese, very tender L shoulder Head: normocophalic, atraumatic Neck: no rigidity Neurologic Exam Mental Status: awake, alert, other - poor historian Speech: normal speech, no dysarthia Language: normal language, no aphasia Cranial Nerves III, IV, : PERRLA, EOMI, pupils Cranial Nerve V: normal facial sensations, temporales function normal, masseters function normal, pterygoids function normal Cranial Nerve VII: no facial asymmetry, normal facial expressions Cranial Nerve VIII: normal hearing, no nystagmus Cranial Nerve IX: normal palate elevation, gag response Cranial Nerve X: no voice hoarseness Cranial Nerve XI: SCM symmetric, trapezii function normal Cranial Nerve XII: tongue midline, no tongue atrophy/fasciculations Motor System: normal muscle tone, strength 5/5, no involuntary movement, no muscle wasting, other - except proxymal BUE pain Sensory: normal pinprick Coordination: normal finger to nose bilaterally Deep Tendon Reflexes: 0 ankle (L), 0 ankle (R), 0 bicep (L), 0 bicep (R), 0 brachioradialis (L), 0 brachioradialis (R), 0 knee (L), 0 knee (R), 0 tricep (L) , 0 tricep (R) Reflexes: mute plantar (L), mute plantar (R) Impression/Recommendations Problems: (1) Seizure disorder, complex partial, with intractable epilepsy (2) Pseudoseizures (3) Development delay (4) DM (diabetes mellitus) (5) Obesity (6) Shoulder pain, left Status: stable Recommendations #[id number] L shoulder MRI WYATT VIVAR Dec 23, 2016 14:06
--- NOTE | 2016-12-23 15:46 | Internal Med Progress Note ---
Subjective Date of Service: Dec 23, 2016 Physician Name Jimmie Orozco Attending Physician Jimmie Orozco Current Medications Medications (Trade) Dose Ordered Sig/Rufus Route PRN Reason Start Time Stop Time Status Last Admin Dose Admin Acetaminophen (Tylenol) 650 mg Q4H PRN ORAL Mild Pain (Pain Scale 1-3) 12/21/16 17:30 01/20/17 17:29 Acetaminophen/ Hydrocodone Bitart ([place] 10/325) 1 ea Q4H PRN ORAL Severe Pain (Pain Scale 7-10) 12/21/16 17:30 12/28/16 17:29 12/22/16 13:42 Acetaminophen/ Hydrocodone Bitart ([place] 5/325) 1 tab Q4H PRN ORAL Moderate Pain (Pain Scale 4-6) 12/21/16 17:30 12/28/16 17:29 12/22/16 16:29 Albuterol Sulfate (Proventil MDI) 2 puff Q6H PRN INH Shortness of Breath 12/21/16 17:30 01/20/17 17:29 Amlodipine Besylate (Norvasc) 2.5 mg DAILY ORAL 12/22/16 09:00 01/21/17 08:59 12/23/16 09:01 Atorvastatin Calcium (Lipitor) 20 mg BEDTIME ORAL 12/21/16 21:00 01/20/17 20:59 12/22/16 20:05 Bethanechol Chloride (Urecholine) 10 mg THREE TIMES A DAY ORAL 12/21/16 21:00 01/20/17 20:59 12/23/16 12:18 Dextrose (Dextrose 50%) STAT PRN IV Hypoglycemia 12/21/16 17:30 01/20/17 17:29 Divalproex Sodium (Depakote) 750 mg Q12HR ORAL 12/21/16 21:00 01/20/17 20:59 12/23/16 08:56 Fish Oil (Fish Oil) 1,000 mg DAILY ORAL 12/22/16 09:00 01/21/17 08:59 12/23/16 08:57 Levetiracetam (Keppra) 1,500 mg Q12HR ORAL 12/22/16 21:00 01/21/17 20:59 12/23/16 08:56 Lorazepam (Ativan 2mg/ml 1ml) 2 mg Q4H PRN IV For Seizures 12/21/16 18:00 12/28/16 17:59 12/23/16 14:01 Losartan Potassium (Cozaar) 50 mg DAILY ORAL 12/22/16 09:00 01/21/17 08:59 12/23/16 08:59 Pantoprazole (Protonix) 40 mg DAILY ORAL 12/22/16 09:00 01/21/17 08:59 12/23/16 08:57 Sertraline HCl (Zoloft) 50 mg DAILY ORAL 12/23/16 09:00 01/22/17 08:59 12/23/16 09:01 Sodium Chloride (0.45% NS 1000ml) 1,000 ml @ 75 mls/hr [id number] IV 12/21/16 19:15 01/20/17 19:14 12/23/16 11:24 Topiramate (Topamax) 100 mg DAILY ORAL 12/23/16 09:00 01/22/17 08:59 12/23/16 08:57 Allergies: Coded Allergies: PHENYTOIN (Verified Allergy, Mild, Rash, 10/18/15) stated patient had a rash reaction to dilantin PENICILLINS (Unverified Allergy, Unknown, 01/29/16) TRAMADOL (Unverified Allergy, Unknown, 09/24/14) ROS Limited/Unobtainable: No Constitutional: Reports: no symptoms HEENT: Reports: no symptoms Cardiovascular: Reports: no symptoms Respiratory: Reports: no symptoms Gastrointestinal/Abdominal: Reports: no symptoms Genitourinary: Reports: no symptoms Neurologic/Psychiatric: Reports: no symptoms Subjective 46 YO M admitted with seizure. Another witnessed seizure today. Await MRI left shoulder. Objective Last Vital Signs Date Time Temp Pulse Resp B/P Pulse Ox O2 Delivery O2 Flow Rate FiO2 12/23/16 12:00 97.0 87 17 130/85 97 Room Air 12/23/16 08:00 2.0 12/22/16 04:00 28 Laboratory Tests Test 12/23/16 05:00 White Blood Count 4.8 K/UL (4.8-10.8) Red Blood Count 5.02 M/UL (4.70-6.10) Hemoglobin 14.4 G/DL (14.2-18.0) Hematocrit 44.0 % (42.0-52.0) Mean Corpuscular Volume 88 FL (80-99) Mean Corpuscular Hemoglobin 28.7 PG (27.0-31.0) Mean Corpuscular Hemoglobin Concent 32.8 G/DL (32.0-36.0) Red Cell Distribution Width 11.6 % (11.6-14.8) Platelet Count 156 K/UL (150-450) Mean Platelet Volume 6.0 FL (6.5-10.1) L Neutrophils (%) (Auto) 51.4 % (45.0-75.0) Lymphocytes (%) (Auto) 32.5 % (20.0-45.0) Monocytes (%) (Auto) 9.3 % (1.0-10.0) Eosinophils (%) (Auto) 5.4 % (0.0-3.0) H Basophils (%) (Auto) 1.3 % (0.0-2.0) Sodium Level 134 mEQ/L (135-145) L Potassium Level 3.7 mEQ/L (3.4-4.9) Chloride Level 95 mEQ/L (98-107) L Carbon Dioxide Level 24 mEQ/L (20-30) Anion Gap 15 (5-15) Blood Urea Nitrogen 10 mg/dL (7-23) Creatinine 0.6 mg/dL (0.7-1.2) L Estimat Glomerular Filtration Rate > 60 mL/min (>60) Glucose Level 93 mg/dL (74-106) Calcium Level 8.6 mg/dL (8.6-10.2) Valproic Acid (Depakene) Level 80 ug/mL (50-100) Levetiracetam (Keppra) Level Pending Intake and Output 12/22/16 12/23/16 19:00 07:00 Intake Total 2100 ml 1350 ml Output Total 1750 ml 2400 ml Balance 350 ml -1050 ml Intake Oral 1200 ml 600 ml IV Total 900 ml 750 ml Output Urine Total 1750 ml 2400 ml # Voids 2 2 Objective General Appearance: WD/WN, no apparent distress, other - Postictal EENT: PERRL/EOMI, normal ENT inspection, TMs normal Neck: non-tender, normal alignment, supple, normal inspection Cardiovascular: normal peripheral pulses, normal rate, regular rhythm, no gallop/murmur, no JVD Respiratory/Chest: chest wall non-tender, lungs clear, normal breath sounds, no respiratory distress, no accessory muscle use Abdomen: normal bowel sounds, non tender, soft, no organomegaly, no mass Extremities: normal range of motion 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 Cont keppra and depakote. (3) HTN (hypertension) Assessment & Plan: Cont norvasc and Cozaar. (4) Uncontrolled seizures (5) Hypercholesteremia (6) Depression Assessment & Plan: See psychiatry consult note. Cont zoloft. Status: not improved JIMMIE OROZCO Dec 23, 2016 15:46
[2016-12-23] MEDS: Atorvastatin 20mg tab ORAL SCH (20:49)
[2016-12-23] MEDS: Norco 10mg/325mg tab ORAL PRN (21:09)
[2016-12-24] VITALS: BP 115/71
[2016-12-24 04:00] VITALS: BP_SYST 115; BP_SYST 97; BP_DIAS 57; BP_DIAS 66
[2016-12-24 08:00] VITALS: BP 124/57
[2016-12-24 08:16] LABS: BASOPHILS % (AUTO) 1.4 % (0.0-2.0); EOSINOPHILS % (AUTO) 5.8 % (0.0-3.0); LYMPHOCYTES % (AUTO) 36.7 % (20.0-45.0); MEAN CORPUSCULAR HEMOGLOBIN 29.5 PG (27.0-31.0); MEAN CORPUSCULAR HGB CONC 33.7 G/DL (32.0-36.0); MEAN CORPUSCULAR VOLUME 87 FL (80-99); MEAN PLATELET VOLUME 4.7 FL (6.5-10.1); MONOCYTES % (AUTO) 8.9 % (1.0-10.0); NEUTROPHILS % (AUTO) 47.2 % (45.0-75.0); PLATELET COUNT 141 K/UL (150-450); RED BLOOD COUNT 4.55 M/UL (4.70-6.10); RED CELL DISTRIBUTION WIDTH 11.6 % (11.6-14.8); WHITE BLOOD COUNT 3.9 K/UL (4.8-10.8)
[2016-12-24 08:36] LABS: ANION GAP 14 (5-15); CALCIUM 7.9 mg/dL (8.6-10.2); CARBON DIOXIDE 23 mEQ/L (20-30); CHLORIDE 92 mEQ/L (98-107); CREATININE 0.5 mg/dL (0.7-1.2); GLOMERULAR FILTRATION RATE > 60 mL/min (>60); HEMOLYSIS 5; POTASSIUM 3.4 mEQ/L (3.4-4.9); SODIUM 129 mEQ/L (135-145)
[2016-12-24] MEDS: Bethanechol 10mg Tab ORAL SCH ×3 (09:02→18:38)
[2016-12-24] MEDS: Sertraline 50mg tab ORAL SCH (09:02)
[2016-12-24] MEDS: Topiramate 100mg tab ORAL SCH (09:02)
[2016-12-24] MEDS: Losartan 50mg tab ORAL SCH (09:03)
[2016-12-24 12:00] VITALS: BP 121/63
--- NOTE | 2016-12-24 12:32 | Neurology Progress Note ---
Interim History Interim History ROS Limited/Unobtainable: No Complaints: L shoulder pain, depression. Events: multiple sz noted last night Objective Physical Exam Last Vital Signs Date Time Temp Pulse Resp B/P Pulse Ox O2 Delivery O2 Flow Rate FiO2 12/24/16 12:00 97.7 78 18 121/63 99 Nasal Cannula 2.0 12/24/16 08:13 28 Laboratory Tests Test 12/24/16 06:00 White Blood Count 3.9 K/UL (4.8-10.8) L Red Blood Count 4.55 M/UL (4.70-6.10) L Hemoglobin 13.4 G/DL (14.2-18.0) L Hematocrit 39.8 % (42.0-52.0) L Mean Corpuscular Volume 87 FL (80-99) Mean Corpuscular Hemoglobin 29.5 PG (27.0-31.0) Mean Corpuscular Hemoglobin Concent 33.7 G/DL (32.0-36.0) Red Cell Distribution Width 11.6 % (11.6-14.8) Platelet Count 141 K/UL (150-450) L Mean Platelet Volume 4.7 FL (6.5-10.1) L Neutrophils (%) (Auto) 47.2 % (45.0-75.0) Lymphocytes (%) (Auto) 36.7 % (20.0-45.0) Monocytes (%) (Auto) 8.9 % (1.0-10.0) Eosinophils (%) (Auto) 5.8 % (0.0-3.0) H Basophils (%) (Auto) 1.4 % (0.0-2.0) Sodium Level 129 mEQ/L (135-145) L Potassium Level 3.4 mEQ/L (3.4-4.9) Chloride Level 92 mEQ/L (98-107) L Carbon Dioxide Level 23 mEQ/L (20-30) Anion Gap 14 (5-15) Blood Urea Nitrogen 7 mg/dL (7-23) Creatinine 0.5 mg/dL (0.7-1.2) L Estimat Glomerular Filtration Rate > 60 mL/min (>60) Glucose Level 77 mg/dL (74-106) Calcium Level 7.9 mg/dL (8.6-10.2) L General: well developed, no acute distress, other - obese, very tender L shoulder Head: normocophalic, atraumatic Neck: no rigidity Neurologic Exam Mental Status: awake, alert, other - poor historian Speech: normal speech, no dysarthia Language: normal language, no aphasia Cranial Nerves III, IV, : PERRLA, EOMI, pupils Cranial Nerve V: normal facial sensations, temporales function normal, masseters function normal, pterygoids function normal Cranial Nerve VII: no facial asymmetry, normal facial expressions Cranial Nerve VIII: normal hearing, no nystagmus Cranial Nerve IX: normal palate elevation, gag response Cranial Nerve X: no voice hoarseness Cranial Nerve XI: SCM symmetric, trapezii function normal Cranial Nerve XII: tongue midline, no tongue atrophy/fasciculations Motor System: normal muscle tone, strength 5/5, no involuntary movement, no muscle wasting, other - except proxymal BUE pain Sensory: normal pinprick Coordination: normal finger to nose bilaterally Deep Tendon Reflexes: 0 ankle (L), 0 ankle (R), 0 bicep (L), 0 bicep (R), 0 brachioradialis (L), 0 brachioradialis (R), 0 knee (L), 0 knee (R), 0 tricep (L) , 0 tricep (R) Reflexes: mute plantar (L), mute plantar (R) Impression/Recommendations Problems: (1) Seizure disorder, complex partial, with intractable epilepsy (2) Pseudoseizures (3) Development delay (4) DM (diabetes mellitus) (5) Obesity (6) Shoulder pain, left Status: not improved Recommendations #[id number] L shoulder MRI depakote 1250 bid WYATT VIVAR Dec 24, 2016 12:32
[2016-12-24] MEDS: Norco 10mg/325mg tab ORAL PRN ×2 (13:16→21:57)
[2016-12-24] MEDS: LORazepam Inj 2mg/ml 1ml IV PRN ×2 (13:56→19:58)
[2016-12-24 15:20] LABS: ANION GAP 15 (5-15); CALCIUM 8.8 mg/dL (8.6-10.2); CARBON DIOXIDE 25 mEQ/L (20-30); CHLORIDE 94 mEQ/L (98-107); CREATININE 0.7 mg/dL (0.7-1.2); GLOMERULAR FILTRATION RATE > 60 mL/min (>60); HEMOLYSIS 26; POTASSIUM 4.1 mEQ/L (3.4-4.9); SODIUM 134 mEQ/L (135-145)
[2016-12-24] MEDS ORDERED: LORazepam Inj 2mg/ml 1ml IV ONE (15:45)
[2016-12-24 16:00] VITALS: BP 124/92
--- NOTE | 2016-12-24 17:12 | Wound Care Consultation ---
Wound Assessment Wound Assessment : Wound Present on Admission: No New Wound: Yes Status Change of Wound: No Wound Location Body Site Modif: mid Wound Location Body Site: sacral Wound Type: pressure ulcer Ramon Test: Does not Ramon Pressure Ulcer Stage: II Wound Length: 0.5 Wound Width: 0.5 Wound Depth: 0.1 Percent of Wound [place]/Red: 100 Wound Drainage Description: Serosanguineous Wound Drainage Amount: Scant Wound Drainage Odor: None/Absent Tissue Surrounding Wound: Erythemic Wound General Appearance: Reddened Wound Comment #1 Sacral stage II pressure ulcer Recommendation -Sacral stage II pressure ulcer Cleanse with saline, pat dry, apply Triad cream, cover with bordered gauze daily and PRN soiled/dislodged -Low air loss overlay mattress -Turn and reposition -Keep clean and dry -Optimize nutrition -Offload both heels -Heel protector on both heels -Assess and f/u accordingly for any changes LINN POLK RN Dec 24, 2016 17:12
--- NOTE | 2016-12-24 17:44 | Internal Med Progress Note ---
Subjective Date of Service: Dec 24, 2016 Physician Name Jimmie Orozco Attending Physician Jimmie Orozco Current Medications Medications (Trade) Dose Ordered Sig/Rufus Route PRN Reason Start Time Stop Time Status Last Admin Dose Admin Acetaminophen (Tylenol) 650 mg Q4H PRN ORAL Mild Pain (Pain Scale 1-3) 12/21/16 17:30 01/20/17 17:29 Acetaminophen/ Hydrocodone Bitart ([place] 10/325) 1 ea Q4H PRN ORAL Severe Pain (Pain Scale 7-10) 12/21/16 17:30 12/28/16 17:29 12/24/16 13:16 Acetaminophen/ Hydrocodone Bitart ([place] 5/325) 1 tab Q4H PRN ORAL Moderate Pain (Pain Scale 4-6) 12/21/16 17:30 12/28/16 17:29 12/22/16 16:29 Albuterol Sulfate (Proventil MDI) 2 puff Q6H PRN INH Shortness of Breath 12/21/16 17:30 01/20/17 17:29 Amlodipine Besylate (Norvasc) 2.5 mg DAILY ORAL 12/22/16 09:00 01/21/17 08:59 12/24/16 09:02 Atorvastatin Calcium (Lipitor) 20 mg BEDTIME ORAL 12/21/16 21:00 01/20/17 20:59 12/23/16 20:49 Bethanechol Chloride (Urecholine) 10 mg THREE TIMES A DAY ORAL 12/21/16 21:00 01/20/17 20:59 12/24/16 13:16 Dextrose (Dextrose 50%) STAT PRN IV Hypoglycemia 12/21/16 17:30 01/20/17 17:29 Divalproex Sodium (Depakote) 1,250 mg Q12HR ORAL 12/24/16 09:00 01/23/17 08:59 12/24/16 09:01 Fish Oil (Fish Oil) 1,000 mg DAILY ORAL 12/22/16 09:00 01/21/17 08:59 12/24/16 09:02 Levetiracetam (Keppra) 2,000 mg Q12HR ORAL 12/24/16 09:00 01/23/17 08:59 12/24/16 09:00 Lorazepam (Ativan 2mg/ml 1ml) 2 mg Q2H PRN IV For Seizures 12/23/16 16:15 12/30/16 16:14 12/24/16 13:56 Losartan Potassium (Cozaar) 50 mg DAILY ORAL 12/22/16 09:00 01/21/17 08:59 12/24/16 09:03 Pantoprazole (Protonix) 40 mg DAILY ORAL 12/22/16 09:00 01/21/17 08:59 12/24/16 09:02 Sertraline HCl (Zoloft) 50 mg DAILY ORAL 12/23/16 09:00 01/22/17 08:59 12/24/16 09:02 Topiramate (Topamax) 150 mg DAILY ORAL 12/24/16 09:00 01/23/17 08:59 12/24/16 09:02 Allergies: Coded Allergies: PHENYTOIN (Verified Allergy, Mild, Rash, 10/18/15) stated patient had a rash reaction to dilantin PENICILLINS (Unverified Allergy, Unknown, 01/29/16) TRAMADOL (Unverified Allergy, Unknown, 09/24/14) ROS Limited/Unobtainable: No Constitutional: Reports: no symptoms HEENT: Reports: no symptoms Cardiovascular: Reports: no symptoms Respiratory: Reports: no symptoms Gastrointestinal/Abdominal: Reports: no symptoms Genitourinary: Reports: no symptoms Neurologic/Psychiatric: Reports: no symptoms Subjective 46 YO M admitted with seizure. Another witnessed seizure today. Await MRI left shoulder. Objective Last Vital Signs Date Time Temp Pulse Resp B/P Pulse Ox O2 Delivery O2 Flow Rate FiO2 12/24/16 16:00 98.1 86 20 124/92 96 Nasal Cannula 2.0 12/24/16 08:13 28 Laboratory Tests Test 12/24/16 06:00 12/24/16 14:07 White Blood Count 3.9 K/UL (4.8-10.8) L Red Blood Count 4.55 M/UL (4.70-6.10) L Hemoglobin 13.4 G/DL (14.2-18.0) L Hematocrit 39.8 % (42.0-52.0) L Mean Corpuscular Volume 87 FL (80-99) Mean Corpuscular Hemoglobin 29.5 PG (27.0-31.0) Mean Corpuscular Hemoglobin Concent 33.7 G/DL (32.0-36.0) Red Cell Distribution Width 11.6 % (11.6-14.8) Platelet Count 141 K/UL (150-450) L Mean Platelet Volume 4.7 FL (6.5-10.1) L Neutrophils (%) (Auto) 47.2 % (45.0-75.0) Lymphocytes (%) (Auto) 36.7 % (20.0-45.0) Monocytes (%) (Auto) 8.9 % (1.0-10.0) Eosinophils (%) (Auto) 5.8 % (0.0-3.0) H Basophils (%) (Auto) 1.4 % (0.0-2.0) Sodium Level 129 mEQ/L (135-145) L 134 mEQ/L (135-145) L Potassium Level 3.4 mEQ/L (3.4-4.9) 4.1 mEQ/L (3.4-4.9) Chloride Level 92 mEQ/L (98-107) L 94 mEQ/L (98-107) L Carbon Dioxide Level 23 mEQ/L (20-30) 25 mEQ/L (20-30) Anion Gap 14 (5-15) 15 (5-15) Blood Urea Nitrogen 7 mg/dL (7-23) 9 mg/dL (7-23) Creatinine 0.5 mg/dL (0.7-1.2) L 0.7 mg/dL (0.7-1.2) Estimat Glomerular Filtration Rate > 60 mL/min (>60) > 60 mL/min (>60) Glucose Level 77 mg/dL (74-106) 107 mg/dL (74-106) H Calcium Level 7.9 mg/dL (8.6-10.2) L 8.8 mg/dL (8.6-10.2) Microbiology Date/Time Source Procedure Growth Status 12/21/16 22:00 Rectum VRE Culture - Final NO VANCOMYCIN RESISTANT ENTEROCOCCUS ... Complete Intake and Output 12/23/16 12/24/16 19:00 07:00 Intake Total 1495 ml 1260 ml Output Total 1500 ml 450 ml Balance -5 ml 810 ml Intake Oral 670 ml 360 ml IV Total 825 ml 900 ml Output Urine Total 1500 ml 450 ml # Voids 3 # Bowel Movements 4 Objective General Appearance: WD/WN, no apparent distress, other - Postictal EENT: PERRL/EOMI, normal ENT inspection, TMs normal Neck: non-tender, normal alignment, supple, normal inspection Cardiovascular: normal peripheral pulses, normal rate, regular rhythm, no gallop/murmur, no JVD Respiratory/Chest: chest wall non-tender, lungs clear, normal breath sounds, no respiratory distress, no accessory muscle use Abdomen: normal bowel sounds, non tender, soft, no organomegaly, no mass Extremities: normal range of motion 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 See neurology consult- possible pseudoseizure. Cont keppra and depakote. (3) HTN (hypertension) Assessment & Plan: Cont norvasc and Cozaar. (4) Uncontrolled seizures (5) Hypercholesteremia (6) Depression Assessment & Plan: See psychiatry consult note. Cont zoloft. (7) Mental retardation (8) Hyponatremia Assessment & Plan: D/C 1/2NS IV fluids. Status: not improved JIMMIE OROZCO Dec 24, 2016 17:44
[2016-12-24 19:00] VITALS: BP 106/75
[2016-12-24] MEDS ORDERED: 1/2 NS 1000ml IV ONE (19:29)
[2016-12-24] MEDS: Atorvastatin 20mg tab ORAL SCH (21:57)
--- NOTE | 2016-12-24 22:18 | Progress Note ---
DATE: 12/24/2016 SUBJECTIVE: The patient is presenting with depressed mood, anhedonia, worthlessness, decreased energy, and poor insight and judgment into his mental condition. The patient has been noncompliant with his seizure medications. MENTAL STATUS EXAMINATION: The patient is alert and oriented times self, place, and date. Minimally verbal. No dysarthria. Mood is depressed. Affect is constricted. Congruent mood. Thought process is concrete. Thought content, no suicidal or homicidal ideations. ASSESSMENT: Major depressive disorder. PLAN: 1. The patient will be continued current medication. 2. Provide the patient with supportive therapy and reality orientation. 3. We will continue to follow and readjust the medication. Katarzyna Valle M.D. DR: ISAIAS JOB#: [id number] CC:
[2016-12-25] VITALS (7 sets, daily range): BP systolic 114–141; BP diastolic 62–85
[2016-12-25] MEDS: Topiramate 100mg tab ORAL SCH (08:33)
[2016-12-25] MEDS: Sertraline 50mg tab ORAL SCH (08:34)
[2016-12-25] MEDS: Losartan 50mg tab ORAL SCH (08:34)
[2016-12-25] MEDS: Bethanechol 10mg Tab ORAL SCH ×3 (08:34→19:01)
--- NOTE | 2016-12-25 10:02 | Diagnostic Imaging Report ---
Indication: Left shoulder pain Technique: MRI of the left shoulder was performed on a 1.5 Zulema magnet without administration of intravascular or intra-articular contrast material and the following sequences were obtained: Axial PD fat-sat; coronal PD fat-sat and T2 fat-sat; sagittal T1, PD fat-sat and T2 fat-sat. Comparison: Plain radiographs of the left shoulder 12/21/16 Findings: There is increased intrasubstance signal of the supraspinatus and infraspinatus tendons consistent with tendinopathy. There is a tiny 5 mm focus of near fluid signal involving the intrasubstance of the infraspinatus tendon at the footprint series 6 images 11 and 12 which could represent a low-grade articular surface or interstitial tear. There is no gross full-thickness tear or tendon retraction. Subscapularis and teres minor are intact. There is no muscle atrophy. The long head of the biceps tendon and biceps labral complex are intact. The biceps tendon is situated in its normal position in the bicipital groove. There is limited evaluation of the glenoid labrum without gross tear or paralabral cyst. Acromioclavicular osteoarthrosis is present with a type II acromion. There is mild fluid in the subacromial/subdeltoid bursa. There is also mild fluid in the suprascapular recess. Fluid also is noted surrounding the long head of the biceps tendon. No acute fracture is identified. Mild degenerative cystic changes of the posterior greater tuberosity are present. There is a small left glenohumeral joint effusion. Impression: Supraspinatus and infraspinatus tendinopathy. Tiny 5 mm focus of near fluid signal involving the infraspinatus tendon at the footprint series 6 images 11 and 12 could represent a low-grade partial thickness articular surface or interstitial tear. No gross full-thickness tear or tendon retraction. Small glenohumeral joint effusion. Small amount of fluid in the subacromial/subdeltoid bursa and suprascapular recess. Bursitis is a consideration and clinical correlation recommended. Nonspecific inflammatory process may be considered. Long head of the biceps tenosynovitis. Long head of the biceps tendon otherwise intact. Acromioclavicular arthrosis.
--- NOTE | 2016-12-25 14:05 | Internal Med Progress Note ---
Subjective Date of Service: Dec 25, 2016 Physician Name Jimmie Orozco Attending Physician Jimmie Orozco Current Medications Medications (Trade) Dose Ordered Sig/Rufus Route PRN Reason Start Time Stop Time Status Last Admin Dose Admin Acetaminophen (Tylenol) 650 mg Q4H PRN ORAL Mild Pain (Pain Scale 1-3) 12/21/16 17:30 01/20/17 17:29 Acetaminophen/ Hydrocodone Bitart ([place] 10/325) 1 ea Q4H PRN ORAL Severe Pain (Pain Scale 7-10) 12/21/16 17:30 12/28/16 17:29 12/24/16 21:57 Acetaminophen/ Hydrocodone Bitart ([place] 5/325) 1 tab Q4H PRN ORAL Moderate Pain (Pain Scale 4-6) 12/21/16 17:30 12/28/16 17:29 12/22/16 16:29 Albuterol Sulfate (Proventil MDI) 2 puff Q6H PRN INH Shortness of Breath 12/21/16 17:30 01/20/17 17:29 Amlodipine Besylate (Norvasc) 2.5 mg DAILY ORAL 12/22/16 09:00 01/21/17 08:59 12/25/16 08:34 Atorvastatin Calcium (Lipitor) 20 mg BEDTIME ORAL 12/21/16 21:00 01/20/17 20:59 12/24/16 21:57 Bethanechol Chloride (Urecholine) 10 mg THREE TIMES A DAY ORAL 12/21/16 21:00 01/20/17 20:59 12/25/16 12:36 Dextrose (Dextrose 50%) STAT PRN IV Hypoglycemia 12/21/16 17:30 01/20/17 17:29 Divalproex Sodium (Depakote) 1,250 mg Q12HR ORAL 12/24/16 09:00 01/23/17 08:59 12/25/16 08:33 Fish Oil (Fish Oil) 1,000 mg DAILY ORAL 12/22/16 09:00 01/21/17 08:59 12/25/16 08:34 Levetiracetam (Keppra) 2,000 mg Q12HR ORAL 12/24/16 09:00 01/23/17 08:59 12/25/16 08:34 Lorazepam (Ativan 2mg/ml 1ml) 2 mg Q2H PRN IV For Seizures 12/23/16 16:15 12/30/16 16:14 12/24/16 19:58 Losartan Potassium (Cozaar) 50 mg DAILY ORAL 12/22/16 09:00 01/21/17 08:59 12/25/16 08:34 Pantoprazole (Protonix) 40 mg DAILY ORAL 12/22/16 09:00 01/21/17 08:59 12/25/16 08:34 Sertraline HCl (Zoloft) 50 mg DAILY ORAL 12/23/16 09:00 01/22/17 08:59 12/25/16 08:34 Topiramate (Topamax) 150 mg DAILY ORAL 12/24/16 09:00 01/23/17 08:59 12/25/16 08:33 Allergies: Coded Allergies: PHENYTOIN (Verified Allergy, Mild, Rash, 10/18/15) stated patient had a rash reaction to dilantin PENICILLINS (Unverified Allergy, Unknown, 01/29/16) TRAMADOL (Unverified Allergy, Unknown, 09/24/14) ROS Limited/Unobtainable: No Constitutional: Reports: no symptoms HEENT: Reports: no symptoms Cardiovascular: Reports: no symptoms Respiratory: Reports: no symptoms Gastrointestinal/Abdominal: Reports: no symptoms Genitourinary: Reports: no symptoms Neurologic/Psychiatric: Reports: no symptoms Subjective 46 YO M admitted with seizure. No new seizure today. Await MRI left shoulder. Objective Last Vital Signs Date Time Temp Pulse Resp B/P Pulse Ox O2 Delivery O2 Flow Rate FiO2 12/25/16 12:08 97.9 79 20 124/72 97 Nasal Cannula 2.0 12/24/16 19:51 28 Laboratory Tests Test 12/24/16 14:07 Sodium Level 134 mEQ/L (135-145) L Potassium Level 4.1 mEQ/L (3.4-4.9) Chloride Level 94 mEQ/L (98-107) L Carbon Dioxide Level 25 mEQ/L (20-30) Anion Gap 15 (5-15) Blood Urea Nitrogen 9 mg/dL (7-23) Creatinine 0.7 mg/dL (0.7-1.2) Estimat Glomerular Filtration Rate > 60 mL/min (>60) Glucose Level 107 mg/dL (74-106) H Calcium Level 8.8 mg/dL (8.6-10.2) Intake and Output 12/24/16 12/25/16 19:00 07:00 Intake Total 900 ml 120 ml Output Total 2275 ml 400 ml Balance -1375 ml -280 ml Intake Oral 600 ml 120 ml IV Total 300 ml Output Urine Total 1775 ml 400 ml Emesis 500 ml # Voids 2 4 Objective General Appearance: WD/WN, no apparent distress, other - Postictal EENT: PERRL/EOMI, normal ENT inspection, TMs normal Neck: non-tender, normal alignment, supple, normal inspection Cardiovascular: normal peripheral pulses, normal rate, regular rhythm, no gallop/murmur, no JVD Respiratory/Chest: chest wall non-tender, lungs clear, normal breath sounds, no respiratory distress, no accessory muscle use Abdomen: normal bowel sounds, non tender, soft, no organomegaly, no mass Extremities: normal range of motion Neurologic: tare man II-XII grossly normal, no motor/sensory deficits, other - postictal Skin: normal pigmentation, warm/dry Assessment/Plan Problem List: (1) Shoulder pain, left Assessment & Plan: Tendonopathy. (2) Seizure disorder Assessment & Plan: Breakthrough seizure activity. See neurology consult- possible pseudoseizure. Cont keppra and depakote. (3) HTN (hypertension) Assessment & Plan: Cont norvasc and Cozaar. (4) Uncontrolled seizures (5) Hypercholesteremia (6) Depression Assessment & Plan: See psychiatry consult note. Cont zoloft. (7) Mental retardation (8) Hyponatremia Assessment & Plan: D/C 1/2NS IV fluids. Status: not improved JIMMIE OROZCO Dec 25, 2016 14:05
[2016-12-25] MEDS: LORazepam Inj 2mg/ml 1ml IV PRN (17:20)
[2016-12-25] MEDS: Atorvastatin 20mg tab ORAL SCH (21:00)
[2016-12-26] VITALS: BP 109/67
[2016-12-26 04:00] VITALS: BP 131/88
[2016-12-26 05:01] LABS: BASOPHILS % (AUTO) 0.9 % (0.0-2.0); EOSINOPHILS % (AUTO) 5.7 % (0.0-3.0); LYMPHOCYTES % (AUTO) 21.9 % (20.0-45.0); MEAN CORPUSCULAR HEMOGLOBIN 29.9 PG (27.0-31.0); MEAN CORPUSCULAR HGB CONC 34.4 G/DL (32.0-36.0); MEAN CORPUSCULAR VOLUME 87 FL (80-99); MEAN PLATELET VOLUME 5.6 FL (6.5-10.1); MONOCYTES % (AUTO) 11.4 % (1.0-10.0); NEUTROPHILS % (AUTO) 60.1 % (45.0-75.0); PLATELET COUNT 148 K/UL (150-450); RED BLOOD COUNT 4.82 M/UL (4.70-6.10); RED CELL DISTRIBUTION WIDTH 11.9 % (11.6-14.8); WHITE BLOOD COUNT 5.9 K/UL (4.8-10.8)
[2016-12-26 05:06] LABS: CARBON DIOXIDE 26 mEQ/L (20-30); CREATININE 0.6 mg/dL (0.7-1.2); GLOMERULAR FILTRATION RATE > 60 mL/min (>60); HEMOLYSIS 9; SODIUM 135 mEQ/L (135-145); VALPROIC ACID 93 ug/mL (50-100)
[2016-12-26 05:07] LABS: ANION GAP 13 (5-15); CHLORIDE 96 mEQ/L (98-107); POTASSIUM 3.9 mEQ/L (3.4-4.9)
[2016-12-26 08:29] VITALS: BP 127/84
[2016-12-26] MEDS: Topiramate 100mg tab ORAL SCH (08:59)
[2016-12-26] MEDS: Losartan 50mg tab ORAL SCH (09:00)
[2016-12-26] MEDS: Sertraline 50mg tab ORAL SCH (09:00)
[2016-12-26] MEDS: Bethanechol 10mg Tab ORAL SCH ×3 (09:00→17:44)
[2016-12-26 11:53] VITALS: BP 118/77
--- NOTE | 2016-12-26 14:32 | Internal Med Progress Note ---
Subjective Date of Service: Dec 26, 2016 Physician Name Jimmie Orozco Attending Physician Jimmie Orozco Current Medications Medications (Trade) Dose Ordered Sig/Rufus Route PRN Reason Start Time Stop Time Status Last Admin Dose Admin Acetaminophen (Tylenol) 650 mg Q4H PRN ORAL Mild Pain (Pain Scale 1-3) 12/21/16 17:30 01/20/17 17:29 Acetaminophen/ Hydrocodone Bitart (Park[place] 10/325) 1 ea Q4H PRN ORAL Severe Pain (Pain Scale 7-10) 12/21/16 17:30 12/28/16 17:29 12/24/16 21:57 Acetaminophen/ Hydrocodone Bitart (Parkin 5/325) 1 tab Q4H PRN ORAL Moderate Pain (Pain Scale 4-6) 12/21/16 17:30 12/28/16 17:29 12/22/16 16:29 Albuterol Sulfate (Proventil MDI) 2 puff Q6H PRN INH Shortness of Breath 12/21/16 17:30 01/20/17 17:29 Amlodipine Besylate (Norvasc) 2.5 mg DAILY ORAL 12/22/16 09:00 01/21/17 08:59 12/26/16 08:59 Atorvastatin Calcium (Lipitor) 20 mg BEDTIME ORAL 12/21/16 21:00 01/20/17 20:59 12/25/16 21:00 Bethanechol Chloride (Urecholine) 10 mg THREE TIMES A DAY ORAL 12/21/16 21:00 01/20/17 20:59 12/26/16 12:37 Dextrose (Dextrose 50%) STAT PRN IV Hypoglycemia 12/21/16 17:30 01/20/17 17:29 Divalproex Sodium (Depakote) 1,250 mg Q12HR ORAL 12/24/16 09:00 01/23/17 08:59 12/26/16 08:59 Fish Oil (Fish Oil) 1,000 mg DAILY ORAL 12/22/16 09:00 01/21/17 08:59 12/26/16 09:00 Levetiracetam (Keppra) 2,000 mg Q12HR ORAL 12/24/16 09:00 01/23/17 08:59 12/26/16 09:00 Lorazepam (Ativan 2mg/ml 1ml) 2 mg Q2H PRN IV For Seizures 12/23/16 16:15 12/30/16 16:14 12/25/16 17:20 Losartan Potassium (Cozaar) 50 mg DAILY ORAL 12/22/16 09:00 01/21/17 08:59 12/26/16 09:00 Pantoprazole (Protonix) 40 mg DAILY ORAL 12/22/16 09:00 01/21/17 08:59 12/26/16 08:58 Sertraline HCl (Zoloft) 50 mg DAILY ORAL 12/23/16 09:00 01/22/17 08:59 12/26/16 09:00 Topiramate (Topamax) 150 mg DAILY ORAL 12/24/16 09:00 01/23/17 08:59 12/26/16 08:59 Allergies: Coded Allergies: PHENYTOIN (Verified Allergy, Mild, Rash, 10/18/15) stated patient had a rash reaction to dilantin PENICILLINS (Unverified Allergy, Unknown, 01/29/16) TRAMADOL (Unverified Allergy, Unknown, 09/24/14) ROS Limited/Unobtainable: No Constitutional: Reports: no symptoms HEENT: Reports: no symptoms Cardiovascular: Reports: no symptoms Respiratory: Reports: no symptoms Gastrointestinal/Abdominal: Reports: no symptoms Genitourinary: Reports: no symptoms Neurologic/Psychiatric: Reports: no symptoms Subjective 46 YO M admitted with seizure. No new seizure today. Await MRI left shoulder. Objective Last Vital Signs Date Time Temp Pulse Resp B/P Pulse Ox O2 Delivery O2 Flow Rate FiO2 12/26/16 11:53 97.7 73 20 118/77 98 Nasal Cannula 2.0 12/26/16 06:35 28 Laboratory Tests Test 12/26/16 03:00 White Blood Count 5.9 K/UL (4.8-10.8) Red Blood Count 4.82 M/UL (4.70-6.10) Hemoglobin 14.4 G/DL (14.2-18.0) Hematocrit 41.8 % (42.0-52.0) L Mean Corpuscular Volume 87 FL (80-99) Mean Corpuscular Hemoglobin 29.9 PG (27.0-31.0) Mean Corpuscular Hemoglobin Concent 34.4 G/DL (32.0-36.0) Red Cell Distribution Width 11.9 % (11.6-14.8) Platelet Count 148 K/UL (150-450) L Mean Platelet Volume 5.6 FL (6.5-10.1) L Neutrophils (%) (Auto) 60.1 % (45.0-75.0) Lymphocytes (%) (Auto) 21.9 % (20.0-45.0) Monocytes (%) (Auto) 11.4 % (1.0-10.0) H Eosinophils (%) (Auto) 5.7 % (0.0-3.0) H Basophils (%) (Auto) 0.9 % (0.0-2.0) Sodium Level 135 mEQ/L (135-145) Potassium Level 3.9 mEQ/L (3.4-4.9) Chloride Level 96 mEQ/L (98-107) L Carbon Dioxide Level 26 mEQ/L (20-30) Anion Gap 13 (5-15) Blood Urea Nitrogen 11 mg/dL (7-23) Creatinine 0.6 mg/dL (0.7-1.2) L Estimat Glomerular Filtration Rate > 60 mL/min (>60) Glucose Level 94 mg/dL (74-106) Calcium Level 9.0 mg/dL (8.6-10.2) Valproic Acid (Depakene) Level 93 ug/mL (50-100) Intake and Output 12/25/16 12/26/16 19:00 07:00 Intake Total 240 ml 320 ml Output Total 600 ml Balance -360 ml 320 ml Intake Oral 240 ml 320 ml Output Urine Total 600 ml # Voids 2 # Bowel Movements 1 1 Objective General Appearance: WD/WN, no apparent distress, other - Postictal EENT: PERRL/EOMI, normal ENT inspection, TMs normal Neck: non-tender, normal alignment, supple, normal inspection Cardiovascular: normal peripheral pulses, normal rate, regular rhythm, no gallop/murmur, no JVD Respiratory/Chest: chest wall non-tender, lungs clear, normal breath sounds, no respiratory distress, no accessory muscle use Abdomen: normal bowel sounds, non tender, soft, no organomegaly, no mass Extremities: normal range of motion 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 (2) Seizure disorder Assessment & Plan: Breakthrough seizure activity. See neurology consult- possible pseudoseizure. Cont keppra and depakote. (3) HTN (hypertension) Assessment & Plan: Cont norvasc and Cozaar. (4) Uncontrolled seizures (5) Hypercholesteremia (6) Depression Assessment & Plan: See psychiatry consult note. Cont zoloft. (7) Mental retardation (8) Hyponatremia Assessment & Plan: D/C 1/2NS IV fluids. Status: stable Assessment/Plan Discharge home today. Depakote 1250 mg BID and Keppra @ gm BID. Follow up PCP in 1 week. JIMMIE OROZCO Dec 26, 2016 14:32
[2016-12-26 16:08] VITALS: BP 124/72
--- NOTE | 2016-12-27 11:18 | Discharge Summary ---
Discharge Summary Hospital Course Date of Admission Dec 21, 2016 at 13:21 Date of Discharge Dec 26, 2016 at 19:15 Admitting Diagnosis intractible seizures HPI Rene Sykes is a 46 year old male who was admitted on Dec 21, 2016 at 13:21 for Intractable Seizures. Patient has known history of seizures and was here last in August with intractable seizures. This was reportedly seen by family. Patient himself was postictal and history is limited. There was no reports of recent trauma No reports of recent fever Patient is beginning to become more awake Hx Cardiac Problems: Yes Hx Hypertension: Yes Hx Asthma: Yes Hx Diabetes: Yes Hx Cancer: No Hx Gastrointestinal Problems: Yes History Of Psychiatric Problem: Yes Hx Neurological Problems: Yes Hx Cerebrovascular Accident: Yes Hx Seizures: Yes Hx Epilepsy: Yes Hx Headaches: Yes Consultations Neurology Psychology Wound Care Procedures Rhythm Strip Diag. Results EP Interpretation: yes Rate: 77 Rhythm: NSR, no PVC's, no ectopy Chest X-Ray Diagnostic Results EP Interpretation: Yes Findings: no consolidation, no effusion, no pneumothorax Number of Views: 1 Hospital Course Medical Decision Making Diagnostic Impression: Primary Impression: Seizure disorder, complex partial, with intractable epilepsy ER Course Patient has had previous visit with the seizure activity At this time repeat imaging was not obtained initially Patient's baseline blood work are appropriate Antiepileptic medications are provided Patient did have seizure activity in the emergency room Prompting the need for further inpatient care Initial Hospital Course LABORATORY STUDIES: WBC 4.2, hemoglobin 15.2, hematocrit 47.1, platelets 161,000, sodium 141, potassium 4.1, chloride 102, CO2 21, BUN 18, creatinine 0.7, and glucose 91. Troponin less than 0.3. ASSESSMENT: This is a 46-year-old male. 1. Intractable seizure. 2. Seizure disorder. 3. Hypertension. 4. Hypercholesterolemia. 5. Left shoulder pain. 6. Depression. TREATMENT: 1. Seizure disorder. A Neurology consultation obtained with Dr. Martínez. Restart Keppra and Depakote as above. Depakote level is pending. We will follow recommendations of Neurology. The patient may require an EEG during this hospitalization. 2. Hypertension. Continue Cozaar and Norvasc as above. 3. Hypercholesterolemia. Continue Lipitor as above. 4. Left shoulder pain. A left shoulder x-ray is pending. 5. Depression. Continue Zoloft as above. Neurology IMPRESSION: 1. Chronic seizure disorder with evidence of pseudoseizures, now presenting with exacerbation in the presence of therapeutic level of Depakote. 2. Both upper extremity musculoligamentous sprain. 3. Hypertension. 4. History of substance abuse. 5. Depression. RECOMMENDATION: Adjust further Keppra to 1500 b.i.d. Increase Topamax up to 100 mg daily and to be titrated further up to 300 mg daily. Due to high risk of psychosomatic seizure disorder, will need a Psychiatry evaluation to adjust the treatment of depression properly. Psychiatry ASSESSMENT: AXIS I Major depressive disorder. AXIS II Deferred. AXIS III Seizure disorder. AXIS IV Low. AXIS V Global assessment of functioning is 50. PLAN: 1. The patient will be continued on Zoloft 50 mg in the morning. The Depakote and Topamax will also help his mood. 2. We will continue follow and readjust the medication. Final Hospital Course / Diagnosis (1) Shoulder pain, left Assessment & Plan: Tendinopathy. (2) Seizure disorder Assessment & Plan: Breakthrough seizure activity. See neurology consult- possible pseudoseizure. Cont Keppra and Depakote. (3) HTN (hypertension) Assessment & Plan: Cont Norvasc and Cozaar. (4) Uncontrolled seizures (5) Hypercholesteremia (6) Depression Assessment & Plan: See psychiatry consult note. Cont Zoloft. (7) Mental retardation (8) Hyponatremia Assessment & Plan: D/C 1/2NS IV fluids. (1) Seizure disorder, complex partial, with intractable epilepsy (2) Pseudoseizures (3) Development delay (4) DM (diabetes mellitus) (5) Obesity (6) Shoulder pain, left Status: stable Assessment/Plan Discharge home today. Depakote 1250 mg BID and Keppra @ gm BID. Follow up PCP in 1 week. Discharge Condition Upon Discharge: stable Discharge Disposition Patient was discharged to [facility] (01) Please refer to the nursing medication reconciliation list. Discharge Diagnoses: Discharge Instructions Discharge Instructions Special Instructions Report given to MONICA Davies. Pt discharged to [facility]. Green folder and belongings sent with patient, EMT handle. Stable condition. PICC line discontinue, no bleeding observed, tip intact. Tele monitor and ID wrsitband removed. I have been assigned to the discharge summary of this patient and did not provide any care for the patient. Marlene Monahan NP, N.P. Dec 27, 2016 11:18
== END 2016-12-26 19:15 | disposition home or self-care (01) | DRG 101 ==
LOC: EDBD 10:13 → EMR 10:55 → OBSVTOIN 13:21 → 2E 13:21 → EDBEDREQ 13:49
PROC: 02HV33Z Insertion of Infusion Device into Superior Vena Cava, Percutaneous Approach (ICD-10-PCS; principal; 2016-12-21)
DX: G40.219 Localization-related (focal) (partial) symptomatic epilepsy and epileptic syndromes with complex partial seizures, intractable, without status epilepticus (principal); E87.1 Hypo-osmolality and hyponatremia; I10 Essential (primary) hypertension; F32.9 Major depressive disorder, single episode, unspecified; E78.00 Pure hypercholesterolemia, unspecified; F79 Unspecified intellectual disabilities; E66.9 Obesity, unspecified; Z91.19 Patient's noncompliance with other medical treatment and regimen; Z88.0 Allergy status to penicillin; Z88.8 Allergy status to other drugs, medicaments and biological substances; S43.492A Other sprain of left shoulder joint, initial encounter; X58.XXXA Exposure to other specified factors, initial encounter; E11.9 Type 2 diabetes mellitus without complications
CPT/HCPCS: 36415; 36569; 71010; 76937; 80048; 80053; 80164; 80299; 80300; 81003; 82550; 82553; 82962; 83690; 84484; 85025; 87081; 93005; 94664; 94760

== ENCOUNTER 2017-01-03 10:56 | Inpatient (IN) | payer MEDICARE, MEDICAID ==
[~2017-01-03] VITALS: Ht 167.6 cm; Wt 86.2 kg
[2017-01-03] VITALS (12 sets, daily range): BP systolic 98–158; BP diastolic 41–91
--- NOTE | 2017-01-03 11:14 | Emergency Room Report ---
History of Present Illness General Chief Complaint: Seizure Source: Patient, Medical Record Present Illness HPI Patient is a 46-year-old male who presented after increased a seizure. The patient had a seizure at a bus stop. Patient previously been taking Depakote as well as Topamax and Keppra. Patient had complaints of the shoulder pain after seizure. The patient had prior history of seizure disorder. History is limited by patient's mental status. Allergies: Coded Allergies: PHENYTOIN (Verified Allergy, Mild, Rash, 10/18/15) stated patient had a rash reaction to dilantin PENICILLINS (Unverified Allergy, Unknown, 01/29/16) TRAMADOL (Unverified Allergy, Unknown, 09/24/14) Patient History Reviewed Nursing Documentation: PMH: Agreed, PSxH: Agreed Nursing Documentation-PMH Past Medical History: No History, Except For Hx Cardiac Problems: Yes Hx Hypertension: Yes Hx Asthma: Yes Hx Diabetes: Yes Hx Cancer: No Hx Gastrointestinal Problems: Yes Hx Neurological Problems: Yes Hx Cerebrovascular Accident: Yes - Seizurte Hx Seizures: Yes Hx Epilepsy: Yes Hx Headaches: Yes Review of Systems All Other Systems: limited - by poor historian Physical Exam Vital Signs Date Time Temp Pulse Resp B/P Pulse Ox O2 Delivery O2 Flow Rate FiO2 01/03/17 10:46 86 18 158/91 98 Room Air 01/03/17 11:03 97.8 Sp02 EP Interpretation: reviewed, normal General Appearance: normal inspection, well appearing, no apparent distress, alert, GCS 15, non-toxic, obese Head: atraumatic ENT: normal ENT inspection, hearing grossly normal, normal voice Neck: normal inspection, full range of motion, supple, no bony tend Respiratory: normal inspection, lungs clear, normal breath sounds, no respiratory distress, no retraction, no wheezing Cardiovascular #1: regular rate, rhythm, no edema Gastrointestinal: normal inspection, normal bowel sounds, non tender, soft, no guarding, no hernia Genitourinary: no CVA tenderness Musculoskeletal: normal inspection, back normal, normal range of motion Neurologic: normal inspection, alert, oriented x3, responsive, speech normal Psychiatric: normal inspection, judgement/insight normal, mood/affect normal Skin: normal inspection, normal color, no rash Medical Decision Making Diagnostic Impression: Primary Impression: Recurrent seizures Additional Impression: Shoulder pain, left ER Course Patient is a 46 yo male who presented after increased seizure activity. Differential diagnosis included status epilepticus, pseudoseizure, electrolyte abnormality, rhabdomyolysis. Patient was noted to have seizure in ED lasting several minutes resolved after Ativan 2mg IM. Laboratory testing showed therapeutic depakote level. Because of recurrent seizure, Dr. Jimmie Lang was contacted for inpatient management. Labs Test 01/03/17 11:55 01/03/17 15:28 Valproic Acid (Depakene) Level 81 ug/mL (50-100) White Blood Count 4.5 K/UL (4.8-10.8) Red Blood Count 5.50 M/UL (4.70-6.10) Hemoglobin 15.7 G/DL (14.2-18.0) Hematocrit 48.5 % (42.0-52.0) Mean Corpuscular Volume 88 FL (80-99) Mean Corpuscular Hemoglobin 28.6 PG (27.0-31.0) Mean Corpuscular Hemoglobin Concent 32.4 G/DL (32.0-36.0) Red Cell Distribution Width 12.2 % (11.6-14.8) Platelet Count 200 K/UL (150-450) Mean Platelet Volume 5.7 FL (6.5-10.1) Neutrophils (%) (Auto) 58.9 % (45.0-75.0) Lymphocytes (%) (Auto) 26.8 % (20.0-45.0) Monocytes (%) (Auto) 9.7 % (1.0-10.0) Eosinophils (%) (Auto) 3.5 % (0.0-3.0) Basophils (%) (Auto) 1.1 % (0.0-2.0) Sodium Level 139 mEQ/L (135-145) Potassium Level 4.1 mEQ/L (3.4-4.9) Chloride Level 100 mEQ/L (98-107) Carbon Dioxide Level 21 mEQ/L (20-30) Anion Gap 18 (5-15) Blood Urea Nitrogen 11 mg/dL (7-23) Creatinine 0.7 mg/dL (0.7-1.2) Estimat Glomerular Filtration Rate > 60 mL/min (>60) Glucose Level 102 mg/dL (74-106) Calcium Level 9.1 mg/dL (8.6-10.2) Total Bilirubin < 0.2 mg/dL (0.0-1.2) Aspartate Amino Transf (AST/SGOT) 24 U/L (5-40) Alanine Aminotransferase (ALT/SGPT) 20 U/L (3-41) Alkaline Phosphatase 60 U/L (40-129) Total Protein 7.3 g/dL (6.6-8.7) Albumin 4.3 g/dL (3.5-5.2) Globulin 3.0 g/dL Albumin/Globulin Ratio 1.4 (1.0-2.7) Last Vital Signs Date Time Temp Pulse Resp B/P Pulse Ox O2 Delivery O2 Flow Rate FiO2 01/03/17 11:03 86 18 Room Air 01/03/17 11:03 97.8 158/91 98 Status: unchanged Disposition: ADMITTED INPATIENT Condition: Serious SantanaJus Jan 03, 2017 11:14
[2017-01-03] MEDS ORDERED: LORazepam Inj 2mg/ml 1ml ONE (11:26)
[2017-01-03] MEDS ORDERED: LORazepam Inj 2mg/ml 1ml IM ONE (11:30)
[2017-01-03] MEDS ORDERED: Heparin 2000 units/Ns 1000ml IV ONE (15:00)
[2017-01-03] MEDS ORDERED: Lidocaine 1% MPF 10mg/ml 5ml INJ ONE (15:00)
[2017-01-03 15:47] LABS: BASOPHILS % (AUTO) 1.1 % (0.0-2.0); EOSINOPHILS % (AUTO) 3.5 % (0.0-3.0); LYMPHOCYTES % (AUTO) 26.8 % (20.0-45.0); MEAN CORPUSCULAR HEMOGLOBIN 28.6 PG (27.0-31.0); MEAN CORPUSCULAR HGB CONC 32.4 G/DL (32.0-36.0); MEAN CORPUSCULAR VOLUME 88 FL (80-99); MEAN PLATELET VOLUME 5.7 FL (6.5-10.1); MONOCYTES % (AUTO) 9.7 % (1.0-10.0); NEUTROPHILS % (AUTO) 58.9 % (45.0-75.0); PLATELET COUNT 200 K/UL (150-450); RED CELL DISTRIBUTION WIDTH 12.2 % (11.6-14.8); WHITE BLOOD COUNT 4.5 K/UL (4.8-10.8)
[2017-01-03 16:01] LABS: ALANINE AMINOTRANSFERASE 20 U/L (3-41); ALBUMIN/GLOBULIN RATIO 1.4 (1.0-2.7); ANION GAP 18 (5-15); ASPARTATE AMINO TRANSFERASE 24 U/L (5-40); CALCIUM 9.1 mg/dL (8.6-10.2); CARBON DIOXIDE 21 mEQ/L (20-30); CHLORIDE 100 mEQ/L (98-107); CREATININE 0.7 mg/dL (0.7-1.2); GLOMERULAR FILTRATION RATE > 60 mL/min (>60); HEMOLYSIS 5; POTASSIUM 4.1 mEQ/L (3.4-4.9); SODIUM 139 mEQ/L (135-145); TOTAL PROTEIN 7.3 g/dL (6.6-8.7)
--- NOTE | 2017-01-03 17:08 | Diagnostic Imaging Report ---
Indications: Needs long-term IV access Technique: Ultrasound confirms patent compressible right brachial vein. Total sterile technique, including sterile probe cover and sterile gel, hat, mask,, sterile gown, large sterile drape, and preparation with 2% chlorhexidine utilized. Local anesthesia with 1% lidocaine. Under real-time ultrasound guidance, puncture vein using 21-gauge needle, documented and archived, passage 0.018 guidewire under direct fluoroscopy, which was used to determine appropriate catheter length, exchange for 5 Grenadian peel-away sheath. 5 [place] Bard dual-lumen power PICC cut to 38 cm. It was inserted through the peel-away sheath. Peel-away sheath and guidewire removed. Catheter fixed to the skin. Both catheter ports aspirated and flushed. Patient tolerated procedure well, without immediate complication. Digital radiograph documents satisfactory catheter tip position, at the cavoatrial junction. Total fluoroscopy time 0.4 minutes. Total dose area product 23 dGycm2 Impression: Successful placement of right arm PICC under sonographic and fluoroscopic guidance, as described above.
[2017-01-03] MEDS ORDERED: Albuterol 90mcg Inhaler 8gm INH PRN (17:45)
[2017-01-03] MEDS ORDERED: LORazepam Inj 2mg/ml 1ml IV PRN (17:45)
[2017-01-03] MEDS: D5 1/2NS w/KCl 20mEq 1,000 ML IV SCH (20:57)
[2017-01-03] MEDS ORDERED: Topiramate 25mg tab ORAL SCH (21:00)
[2017-01-03] MEDS: Bethanechol 10mg Tab ORAL SCH (21:23)
[2017-01-03] MEDS: Heparin 5000 units/ml inj SUBQ SCH (21:26)
[2017-01-03] MEDS: Atorvastatin 20mg tab ORAL SCH (22:05)
[2017-01-04] VITALS (7 sets, daily range): BP systolic 106–131; BP diastolic 66–85
[2017-01-04 06:22] LABS: BASOPHILS % (AUTO) 1.5 % (0.0-2.0); EOSINOPHILS % (AUTO) 4.3 % (0.0-3.0); LYMPHOCYTES % (AUTO) 30.7 % (20.0-45.0); MEAN CORPUSCULAR HEMOGLOBIN 28.4 PG (27.0-31.0); MEAN CORPUSCULAR HGB CONC 32.3 G/DL (32.0-36.0); MEAN CORPUSCULAR VOLUME 88 FL (80-99); MONOCYTES % (AUTO) 12.2 % (1.0-10.0); NEUTROPHILS % (AUTO) 51.3 % (45.0-75.0); PLATELET COUNT 187 K/UL (150-450); WHITE BLOOD COUNT 4.2 K/UL (4.8-10.8)
[2017-01-04 06:40] LABS: ANION GAP 14 (5-15); CALCIUM 9.1 mg/dL (8.6-10.2); CARBON DIOXIDE 22 mEQ/L (20-30); CHLORIDE 101 mEQ/L (98-107); CHOLESTEROL 120 mg/dL (< 200); CHOLESTEROL/HDL RATIO 2.4 (3.3-4.4); CREATININE 0.6 mg/dL (0.7-1.2); GLOMERULAR FILTRATION RATE > 60 mL/min (>60); HEMOLYSIS 4; LDL CHOLESTEROL (CALC.) 55 mg/dL (60-99); POTASSIUM 4.2 mEQ/L (3.4-4.9); SODIUM 137 mEQ/L (135-145)
[2017-01-04] MEDS: D5 1/2NS w/KCl 20mEq 1,000 ML IV SCH ×3 (09:00→18:57)
[2017-01-04] MEDS: Losartan 50mg tab ORAL SCH (09:29)
[2017-01-04] MEDS: Topiramate 100mg tab ORAL SCH ×2 (09:29→21:02)
[2017-01-04] MEDS: Sertraline 50mg tab ORAL SCH (09:29)
[2017-01-04] MEDS: Bethanechol 10mg Tab ORAL SCH ×3 (09:30→17:12)
[2017-01-04] MEDS: Heparin 5000 units/ml inj SUBQ SCH ×2 (09:31→21:04)
--- NOTE | 2017-01-04 12:27 | Diagnostic Imaging Report ---
Indication: PAIN Technique: 3 views of the left shoulder Comparison: none Findings: No acute fractures. No dislocations. Joint spaces are preserved Impression:Negative
--- NOTE | 2017-01-04 14:57 | History & Physical ---
History and Physical History & Physicial Dictated Int Med no. [id number]. EUGENIO OROZCO Jan 04, 2017 14:57
[2017-01-04 15:05] LABS: KETONES,URINE NEGATIVE (NEGATIVE); LEUKOCYTE ESTERASE ,URINE NEGATIVE (NEGATIVE); NITRITE,URINE NEGATIVE (NEGATIVE); PH,URINE 8 (4.5-8.0); PROTEIN,URINE NEGATIVE (NEGATIVE); UROBILINOGEN,URINE NORMAL MG/DL (0.0-1.0)
[2017-01-04 15:12] LABS: APPEARANCE,URINE CLEAR
--- NOTE | 2017-01-04 15:32 | Neurology Progress Note ---
Objective Physical Exam Last Vital Signs Date Time Temp Pulse Resp B/P Pulse Ox O2 Delivery O2 Flow Rate FiO2 01/04/17 12:11 97.4 77 15 118/85 Room Air 01/04/17 09:23 97 01/04/17 08:18 2.0 Laboratory Tests Test 01/04/17 06:00 01/04/17 14:30 White Blood Count 4.2 K/UL (4.8-10.8) L Red Blood Count 5.50 M/UL (4.70-6.10) Hemoglobin 15.6 G/DL (14.2-18.0) Hematocrit 48.4 % (42.0-52.0) Mean Corpuscular Volume 88 FL (80-99) Mean Corpuscular Hemoglobin 28.4 PG (27.0-31.0) Mean Corpuscular Hemoglobin Concent 32.3 G/DL (32.0-36.0) Red Cell Distribution Width 12.0 % (11.6-14.8) Platelet Count 187 K/UL (150-450) Mean Platelet Volume 6.0 FL (6.5-10.1) L Neutrophils (%) (Auto) 51.3 % (45.0-75.0) Lymphocytes (%) (Auto) 30.7 % (20.0-45.0) Monocytes (%) (Auto) 12.2 % (1.0-10.0) H Eosinophils (%) (Auto) 4.3 % (0.0-3.0) H Basophils (%) (Auto) 1.5 % (0.0-2.0) Sodium Level 137 mEQ/L (135-145) Potassium Level 4.2 mEQ/L (3.4-4.9) Chloride Level 101 mEQ/L (98-107) Carbon Dioxide Level 22 mEQ/L (20-30) Anion Gap 14 (5-15) Blood Urea Nitrogen 8 mg/dL (7-23) Creatinine 0.6 mg/dL (0.7-1.2) L Estimat Glomerular Filtration Rate > 60 mL/min (>60) Glucose Level 101 mg/dL (74-106) Calcium Level 9.1 mg/dL (8.6-10.2) Triglycerides Level 73 mg/dL (< 150) Cholesterol Level 120 mg/dL (< 200) LDL Cholesterol 55 mg/dL (60-99) L HDL Cholesterol 50 mg/dL (> 60) Cholesterol/HDL Ratio 2.4 (3.3-4.4) L Valproic Acid (Depakene) Level Pending Urine Color Pale yellow Urine Appearance Clear Urine pH 8 (4.5-8.0) Urine Specific [place] 1.010 (1.005-1.035) Urine Protein Negative (NEGATIVE) Urine Glucose (UA) Negative (NEGATIVE) Urine Ketones Negative (NEGATIVE) Urine Occult Blood Negative (NEGATIVE) Urine Nitrite Negative (NEGATIVE) Urine Bilirubin Negative (NEGATIVE) Urine Urobilinogen Normal MG/DL (0.0-1.0) Urine Leukocyte Esterase Negative (NEGATIVE) Impression/Recommendations Problems: (1) Seizure disorder, complex partial, with intractable epilepsy (2) Pseudoseizures (3) Development delay (4) Depression Status: unchanged Recommendations #[id number] WYATT VIVAR Jan 04, 2017 15:32
[2017-01-04] MEDS: Valproic Acid 250mg/5ml Liquid ORAL SCH (21:01)
[2017-01-04] MEDS: Atorvastatin 20mg tab ORAL SCH (21:02)
[2017-01-04] MEDS: levETIRAcetam 500mg/5ml Liquid ORAL SCH (21:02)
--- NOTE | 2017-01-04 22:18 | Consultation ---
DATE OF CONSULTATION: 01/04/2017 NEUROLOGICAL CONSULTATION CONSULTING PHYSICIAN: Nikunj Martínez M.D. REQUESTING PHYSICIAN: Jimmie Lang M.D. HISTORY OF PRESENT ILLNESS: The patient is a 46-year-old male, well known to me from a previous assessment, discharged from this facility only couple weeks ago, now readmitted for new episode of seizure activity, which [place]. The previous admission followed by similar episode of having seizures outside the facility There are multiple CT scans which were done in the last few years, all negative for any intracranial abnormalities. Following current admission, laboratory work repeated with normal CBC study. Chemistry panel, unremarkable. Toxicology panel with valproic acid of 81. Normal urinalysis. He complains of shoulder pain. X-ray of left shoulder revealed no acute fracture and no dislocation. During his previous examination, he also complained of left shoulder. The patient had a MRI of the left shoulder, which revealed supraspinatus and infraspinatus tendinopathy, low-grade partial thickness articular surface for interstitial tear, small glenohumeral joint effusion, and small portion of fluid in subacromial subdeltoid bursa. Bursitis was a consideration as well as long head of biceps tenosynovitis and acromioclavicular arthrosis. The patient has a long history of seizure disorder. He had several admissions earlier, all addressing issue of seizure activity. Previously, assessment at the [facility] revealed presence of pseudoseizures. The patient considered to be noncompliant, having true seizure activity as well as history of pseudoseizures. Discharging previously, the patient was maintained on three anticonvulsants. PAST MEDICAL HISTORY: The patient has a previous history of developmental delay, alcohol abuse, depression, anxiety, gastroesophageal reflux disease, hypertension, bronchial asthma, hyperlipidemia, and obesity. CURRENT MEDICATIONS: His treatment prior to admission included atorvastatin, amlodipine, albuterol, vitamin D, Klonopin 0.5 mg at bedtime, Depakote 750 mg b.i.d., Keppra 1000 mg b.i.d., sertraline 25 mg daily, simvastatin, temazepam, and topiramate 150 mg b.i.d. ALLERGIES: Penicillin, phenytoin, and tramadol. FAMILY HISTORY: Noncontributory. SOCIAL HISTORY: Resident of [facility]. REVIEW OF SYSTEMS: This include depression, anxiety, left shoulder pain, having seizures, not feeling well, weakness, and slight chest pain, but no respiratory difficulties. Denies abdominal pain or discomfort. No urinary incontinence. PHYSICAL EXAMINATION: GENERAL: A well-developed, moderately obese man, lying in bed, watching TV. VITAL SIGNS: Now stable. Blood pressure 117/80 and respirations 14. HEENT: Head, normocephalic. No evidence of trauma. Eyes, ears, and throat are clear. NECK: Supple. No meningeal signs. MUSCULOSKELETAL: There is tenderness on palpation of the left shoulder. Peripheral pulses 1+ and symmetric. MENTAL STATUS: He is alert and oriented x3. Speech is fluent. Language is intact. Mood is depressed and anxious. CRANIAL NERVE II: Pupils both responding to light and accommodation. Extraocular movement intact. No nystagmus. CRANIAL NERVE V: Normal corneal responses. CRANIAL NERVE VII: No facial asymmetry. CRANIAL NERVE VIII: Normal hearing. CRANIAL NERVES IX THROUGH XII: Tongue is in midline. Symmetric palate elevation. MOTOR EXAMINATION: Normal muscle tone and strength 5/5 in all extremities. No involuntary movement. Deep tendon reflexes, 1+ and symmetric with downgoing toes on both sides. SENSORY EXAM: Normal to pinprick and light touch. Gait not tested. The patient felt weakness. IMPRESSION: 1. Chronic generalized seizure disorder and pseudoseizures exacerbation. 2. Depression/anxiety. 3. Developmental delay. 4. Left shoulder bursitis. 5. Hypertension. 6. Bronchial asthma. RECOMMENDATIONS: The patient to be seen by psychiatrist to adjust antidepressants and address issue of pseudoseizure treatment. Meanwhile, we will maintain his anticonvulsants at a maximum. The patient to be observed for any additional paroxysmal event. I discussed the patient's status with Dr. Lang. Thank you for allowing me to see this interesting patient in neurological consultation. Nikunj Martínez M.D. DR: CANDIDO JOB#: [id number] CC:
--- NOTE | 2017-01-04 22:28 | History and Physical Report ---
DATE OF ADMISSION: 01/03/2017 CHIEF COMPLAINT: This is a 46-year-old male with a history of seizure disorder, who presents with chief complaint of seizure. HISTORY OF PRESENT ILLNESS: The patient was admitted to [facility] from December 21, 2016 to December 26, 2016. Please see history and physical and discharge summary dictated at that time. The patient was admitted to [facility] from December 21, 2016 to December 26, 2016 for breakthrough seizures. The patient was discharged home on Depakote 1250 mg twice a day and Keppra 2 g twice daily. The patient was also on Topamax 150 mg daily. Apparently, the patient [place] bus stop on January 03, 2017. The patient presented to [address] emergency room. The patient was admitted with breakthrough seizures. REVIEW OF SYSTEMS: Constitutional: The patient denies weight loss or weight gain. The patient denies fevers or chills. HEENT: The patient denies ear or throat pain. Cardiovascular: The patient denies palpitations or chest pain. Chest: The patient denies wheezes or shortness of breath. Abdomen: The patient denies nausea, vomiting, diarrhea, or constipation. Genitourinary: The patient denies dysuria or increased frequency of urination. Neuromuscular: The patient complains of breakthrough seizure as above. The patient denies generalized weakness. PAST MEDICAL HISTORY: Significant for: 1. Seizure disorder. 2. Hypertension. 3. Hypercholesterolemia. PAST SURGICAL HISTORY: Significant for nasal septoplasty. CURRENT MEDICATIONS: 1. Depakote 1250 mg one tablet p.o. twice daily. 2. Keppra 2 g p.o. twice daily. 3. Topamax 150 mg one tablet p.o. daily. 4. Albuterol metered-dose inhaler two puffs p.o. q.i.d. p.r.n. 5. Amlodipine 2.5 mg one tablet p.o. daily. 6. Lipitor 20 mg one tablet p.o. daily. 7. Bethanechol 10 mg one tablet p.o. three times daily. 8. Calcium acetate one packet p.o. daily. 9. Vitamin D3 5000 units one tablet p.o. daily. 10. Klonopin 1 mg one tablet p.o. nightly. 11. Ibuprofen 800 mg one tablet p.o. q.8 h. p.r.n. 12. Losartan 50 mg one tablet p.o. daily. 13. Fish oil 1000 mg one tablet p.o. daily. 14. Omeprazole 40 mg one tablet p.o. daily. 15. Zantac 150 mg one tablet p.o. twice daily. 16. Zoloft 25 mg one tablet p.o. daily. 17. Restoril 15 mg one tablet p.o. nightly. ALLERGIES: 1. Penicillin. 2. Dilantin. 3. Tramadol. SOCIAL HISTORY: The patient is single, however, lives with a long time girlfriend. The patient is disabled. The patient denies tobacco or alcohol use. PHYSICAL EXAMINATION: VITAL SIGNS: Temperature 97.8, respirations 12, pulse 77, and blood pressure 131/67. GENERAL: The patient is a well-developed and well-nourished slightly obese male, who is postictal. HEENT: Eyes, pupils are equal and responsive to light and accommodation. Extraocular movements are intact. NECK: Supple without lymphadenopathy. CHEST: Lungs are clear to auscultation bilaterally without wheezes or rales. CARDIOVASCULAR: Regular rhythm and rate. S1 and S2 without murmurs, rubs, or gallops. ABDOMEN: Soft, nontender, and nondistended. Positive bowel sounds. No evidence of hepatosplenomegaly. Currently, no rebounding or guarding noted. EXTREMITIES: Negative for clubbing, cyanosis, or edema. RECTAL/GENITAL: Refused. NEUROLOGIC: Cranial nerves II through XII are grossly intact without focal deficits. Motor strength is 5/5 bilaterally. Deep tendon reflexes are 2+ plantar. LABORATORY STUDIES: WBC 4.5, hemoglobin 15.7, hematocrit 48.5, and platelets 200,000. Sodium 139, potassium 4.1, chloride 100, CO2 21, BUN 11, and creatinine 0.7. Glucose 102. Depakote level therapeutic at 81. ASSESSMENT: This is a 46-year-old male with: 1. Seizure disorder. 2. Intractable seizures. 3. Hypertension. 4. Hypercholesterolemia. 5. Left shoulder pain. 6. Depression. TREATMENT: 1. Seizure disorder. Continue Depakote, Keppra, and Topamax as above. A Neurology consultation is obtained with Dr. Martínez. We will follow recommendations of Neurology. The patient is either noncompliant with his medications or he is having breakthrough seizures. We will follow recommendations of Neurology. 2. Hypertension. Continue Cozaar and Norvasc as above. 3. Hypercholesterolemia. Continue Lipitor as above. 4. Left shoulder pain. The patient had a left shoulder x-ray previously. An MRI of the left shoulder is pending. 5. Depression. Continue Zoloft as above. Jimmie Lang M.D. DR: MELVIN JOB#: [id number] CC:
[2017-01-05] VITALS: BP 118/77
[2017-01-05 04:00] VITALS: BP 130/84
[2017-01-05 07:13] LABS: BASOPHILS % (AUTO) 1.4 % (0.0-2.0); EOSINOPHILS % (AUTO) 6.2 % (0.0-3.0); LYMPHOCYTES % (AUTO) 31.2 % (20.0-45.0); MEAN CORPUSCULAR VOLUME 88 FL (80-99); MEAN PLATELET VOLUME 5.6 FL (6.5-10.1); MONOCYTES % (AUTO) 10.3 % (1.0-10.0); PLATELET COUNT 163 K/UL (150-450); RED BLOOD COUNT 5.03 M/UL (4.70-6.10); RED CELL DISTRIBUTION WIDTH 11.9 % (11.6-14.8); WHITE BLOOD COUNT 3.9 K/UL (4.8-10.8)
[2017-01-05 07:43] LABS: ANION GAP 14 (5-15); CALCIUM 9.1 mg/dL (8.6-10.2); CARBON DIOXIDE 23 mEQ/L (20-30); CHLORIDE 102 mEQ/L (98-107); CREATININE 0.6 mg/dL (0.7-1.2); GLOMERULAR FILTRATION RATE > 60 mL/min (>60); HEMOLYSIS 9; SODIUM 139 mEQ/L (135-145)
[2017-01-05] MEDS: D5 1/2NS w/KCl 20mEq 1,000 ML IV SCH ×2 (07:44→18:16)
[2017-01-05 07:48] VITALS: BP 109/80
[2017-01-05] MEDS: levETIRAcetam 500mg/5ml Liquid ORAL SCH ×2 (08:23→20:30)
[2017-01-05] MEDS: Bethanechol 10mg Tab ORAL SCH ×3 (08:23→18:15)
[2017-01-05] MEDS: Valproic Acid 250mg/5ml Liquid ORAL SCH ×2 (08:23→20:29)
[2017-01-05] MEDS: Sertraline 50mg tab ORAL SCH (08:24)
[2017-01-05] MEDS: Topiramate 100mg tab ORAL SCH ×2 (08:24→20:31)
[2017-01-05] MEDS: Losartan 50mg tab ORAL SCH (08:24)
[2017-01-05] MEDS: Heparin 5000 units/ml inj SUBQ SCH ×2 (08:26→20:33)
[2017-01-05 11:39] VITALS: BP 110/62
--- NOTE | 2017-01-05 11:45 | Neurology Progress Note ---
Interim History Interim History ROS Limited/Unobtainable: Yes Complaints: headache weakness Events: stable Objective Physical Exam Last Vital Signs Date Time Temp Pulse Resp B/P Pulse Ox O2 Delivery O2 Flow Rate FiO2 01/05/17 11:39 75 18 110/62 95 Room Air 01/05/17 07:48 97.0 01/04/17 08:18 2.0 Laboratory Tests Test 01/04/17 14:30 01/05/17 07:00 Urine Color Pale yellow Urine Appearance Clear Urine pH 8 (4.5-8.0) Urine Specific [place] 1.010 (1.005-1.035) Urine Protein Negative (NEGATIVE) Urine Glucose (UA) Negative (NEGATIVE) Urine Ketones Negative (NEGATIVE) Urine Occult Blood Negative (NEGATIVE) Urine Nitrite Negative (NEGATIVE) Urine Bilirubin Negative (NEGATIVE) Urine Urobilinogen Normal MG/DL (0.0-1.0) Urine Leukocyte Esterase Negative (NEGATIVE) White Blood Count 3.9 K/UL (4.8-10.8) L Red Blood Count 5.03 M/UL (4.70-6.10) Hemoglobin 14.6 G/DL (14.2-18.0) Hematocrit 44.3 % (42.0-52.0) Mean Corpuscular Volume 88 FL (80-99) Mean Corpuscular Hemoglobin 29.0 PG (27.0-31.0) Mean Corpuscular Hemoglobin Concent 33.0 G/DL (32.0-36.0) Red Cell Distribution Width 11.9 % (11.6-14.8) Platelet Count 163 K/UL (150-450) Mean Platelet Volume 5.6 FL (6.5-10.1) L Neutrophils (%) (Auto) 51.0 % (45.0-75.0) Lymphocytes (%) (Auto) 31.2 % (20.0-45.0) Monocytes (%) (Auto) 10.3 % (1.0-10.0) H Eosinophils (%) (Auto) 6.2 % (0.0-3.0) H Basophils (%) (Auto) 1.4 % (0.0-2.0) Sodium Level 139 mEQ/L (135-145) Potassium Level 4.0 mEQ/L (3.4-4.9) Chloride Level 102 mEQ/L (98-107) Carbon Dioxide Level 23 mEQ/L (20-30) Anion Gap 14 (5-15) Blood Urea Nitrogen 9 mg/dL (7-23) Creatinine 0.6 mg/dL (0.7-1.2) L Estimat Glomerular Filtration Rate > 60 mL/min (>60) Glucose Level 105 mg/dL (74-106) Calcium Level 9.1 mg/dL (8.6-10.2) General: well developed, no acute distress, other - obese Head: atraumatic Neck: other Neurologic Exam Mental Status: awake, alert, other - depressed Speech: normal speech, no dysarthia Language: normal language, no aphasia Cranial Nerve II: fundus normal, visual shea, no papilledema Cranial Nerves III, IV, : PERRLA, EOMI, pupils Cranial Nerve V: normal facial sensations, temporales function normal, masseters function normal, pterygoids function normal Cranial Nerve VII: no facial asymmetry, normal facial expressions Cranial Nerve VIII: normal hearing, no nystagmus Cranial Nerve IX: normal palate elevation, gag response Cranial Nerve X: no voice hoarseness Cranial Nerve XI: SCM symmetric, trapezii function normal Cranial Nerve XII: tongue midline, no tongue atrophy/fasciculations Motor System: no involuntary movement, no muscle wasting Sensory: normal pinprick Deep Tendon Reflexes: 0 ankle (L), 0 ankle (R), 0 bicep (L), 0 bicep (R), 0 brachioradialis (L), 0 brachioradialis (R), 0 knee (L), 0 knee (R), 0 tricep (L) , 0 tricep (R) Reflexes: mute plantar (L), mute plantar (R) Impression/Recommendations Problems: (1) Seizure disorder, complex partial, with intractable epilepsy (2) Pseudoseizures (3) Development delay (4) Depression Status: unchanged Recommendations #[id number] psych eval cont present rx WYATT VIVAR Jan 05, 2017 11:45
--- NOTE | 2017-01-05 13:19 | Internal Med Progress Note ---
Subjective Date of Service: Jan 05, 2017 Physician Name Jimmie Orozco Attending Physician Jimmie Orozco Current Medications Medications (Trade) Dose Ordered Sig/Rufus Route PRN Reason Start Time Stop Time Status Last Admin Dose Admin Acetaminophen (Tylenol) 650 mg Q4H PRN ORAL Mild Pain (Pain Scale 1-3) 01/03/17 17:45 02/02/17 17:44 Albuterol Sulfate (Proventil MDI) 2 puff Q6H PRN INH Shortness of Breath 01/03/17 17:45 02/02/17 17:44 Amlodipine Besylate (Norvasc) 2.5 mg DAILY ORAL 01/04/17 09:00 02/03/17 08:59 01/05/17 08:25 Atorvastatin Calcium (Lipitor) 20 mg BEDTIME ORAL 01/03/17 21:00 02/02/17 20:59 01/04/17 21:02 Bethanechol Chloride (Urecholine) 10 mg THREE TIMES A DAY ORAL 01/03/17 21:00 02/02/17 20:59 01/05/17 08:23 Dextrose (Dextrose 50%) STAT PRN IV Hypoglycemia 01/03/17 17:45 02/02/17 17:44 Dextrose/ Electrolytes (D5 0.45%NS W/ KCl 20mEq) 1,000 ml @ 100 mls/hr Q10H IV 01/03/17 20:00 02/02/17 19:59 01/05/17 07:44 Fish Oil (Fish Oil) 1,000 mg DAILY ORAL 01/04/17 09:00 02/03/17 08:59 01/05/17 08:24 Heparin Sodium (Porcine) (Heparin 5000 units/ml) 5,000 units EVERY 12 HOURS SUBQ 01/03/17 21:00 02/02/17 20:59 01/05/17 08:26 Ibuprofen (Advil) 600 mg Q8H PRN ORAL For Pain 01/03/17 17:45 02/02/17 17:44 Levetiracetam (Keppra) 2,000 mg Q12HR ORAL 01/04/17 21:00 02/03/17 20:59 01/05/17 08:23 Lorazepam (Ativan 2mg/ml 1ml) 2 mg Q2H PRN IV For Seizures 01/03/17 17:45 01/10/17 17:44 Losartan Potassium (Cozaar) 50 mg DAILY ORAL 01/04/17 09:00 02/03/17 08:59 01/05/17 08:24 Pantoprazole (Protonix) 40 mg DAILY ORAL 01/03/17 21:00 02/02/17 20:59 01/05/17 08:24 Risperidone (RisperDAL) 1 mg DAILY ORAL 01/04/17 17:00 02/03/17 16:59 01/05/17 08:24 Sertraline HCl (Zoloft) 25 mg DAILY ORAL 01/04/17 09:00 02/03/17 08:59 01/05/17 08:24 Topiramate (Topamax) 200 mg Q12HR ORAL 01/03/17 21:36 02/02/17 20:59 01/05/17 08:24 Valproic Acid (Depakene) 1,250 mg Q12HR ORAL 01/04/17 21:00 02/03/17 20:59 01/05/17 08:23 Allergies: Coded Allergies: PHENYTOIN (Verified Allergy, Mild, Rash, 10/18/15) stated patient had a rash reaction to dilantin PENICILLINS (Unverified Allergy, Unknown, 01/29/16) TRAMADOL (Unverified Allergy, Unknown, 09/24/14) ROS Limited/Unobtainable: No Constitutional: Reports: no symptoms HEENT: Reports: no symptoms Cardiovascular: Reports: no symptoms Respiratory: Reports: no symptoms Gastrointestinal/Abdominal: Reports: no symptoms Genitourinary: Reports: no symptoms Neurologic/Psychiatric: Reports: headache, weakness Subjective 46 YO M admitted with intractable seizure. No new seizure overnight. Await psych consult. Objective Last Vital Signs Date Time Temp Pulse Resp B/P Pulse Ox O2 Delivery O2 Flow Rate FiO2 01/05/17 12:00 73 01/05/17 11:39 18 110/62 95 Room Air 01/05/17 07:48 97.0 01/04/17 08:18 2.0 General Appearance: WD/WN, no apparent distress, alert EENT: PERRL/EOMI, normal ENT inspection Neck: non-tender, normal alignment, supple, normal inspection Cardiovascular: normal peripheral pulses, normal rate, regular rhythm, no gallop/murmur, no JVD Respiratory/Chest: chest wall non-tender, lungs clear, normal breath sounds, no respiratory distress, no accessory muscle use Abdomen: normal bowel sounds, non tender, soft, no organomegaly, no mass Extremities: normal range of motion Neurologic: auto design checker II-XII grossly normal, no motor/sensory deficits Skin: normal pigmentation, warm/dry Laboratory Tests Test 01/04/17 14:30 01/05/17 07:00 Urine Color Pale yellow Urine Appearance Clear Urine pH 8 (4.5-8.0) Urine Specific [place] 1.010 (1.005-1.035) Urine Protein Negative (NEGATIVE) Urine Glucose (UA) Negative (NEGATIVE) Urine Ketones Negative (NEGATIVE) Urine Occult Blood Negative (NEGATIVE) Urine Nitrite Negative (NEGATIVE) Urine Bilirubin Negative (NEGATIVE) Urine Urobilinogen Normal MG/DL (0.0-1.0) Urine Leukocyte Esterase Negative (NEGATIVE) White Blood Count 3.9 K/UL (4.8-10.8) L Red Blood Count 5.03 M/UL (4.70-6.10) Hemoglobin 14.6 G/DL (14.2-18.0) Hematocrit 44.3 % (42.0-52.0) Mean Corpuscular Volume 88 FL (80-99) Mean Corpuscular Hemoglobin 29.0 PG (27.0-31.0) Mean Corpuscular Hemoglobin Concent 33.0 G/DL (32.0-36.0) Red Cell Distribution Width 11.9 % (11.6-14.8) Platelet Count 163 K/UL (150-450) Mean Platelet Volume 5.6 FL (6.5-10.1) L Neutrophils (%) (Auto) 51.0 % (45.0-75.0) Lymphocytes (%) (Auto) 31.2 % (20.0-45.0) Monocytes (%) (Auto) 10.3 % (1.0-10.0) H Eosinophils (%) (Auto) 6.2 % (0.0-3.0) H Basophils (%) (Auto) 1.4 % (0.0-2.0) Sodium Level 139 mEQ/L (135-145) Potassium Level 4.0 mEQ/L (3.4-4.9) Chloride Level 102 mEQ/L (98-107) Carbon Dioxide Level 23 mEQ/L (20-30) Anion Gap 14 (5-15) Blood Urea Nitrogen 9 mg/dL (7-23) Creatinine 0.6 mg/dL (0.7-1.2) L Estimat Glomerular Filtration Rate > 60 mL/min (>60) Glucose Level 105 mg/dL (74-106) Calcium Level 9.1 mg/dL (8.6-10.2) Intake and Output 01/04/17 01/05/17 19:00 07:00 Intake Total 2000 ml Output Total 400 ml 800 ml Balance 1600 ml -800 ml Intake Oral 1000 ml IV Total 1000 ml Output Urine Total 400 ml 800 ml # Bowel Movements 2 Assessment/Plan Problem List: (1) Major depression Assessment & Plan: Await psych consult. (2) Seizure disorder (3) Epileptic seizure, generalized (4) Uncontrolled seizures Assessment & Plan: Continue keppra, depakote and topamax. See neurology note. (5) HTN (hypertension) (6) Hypercholesteremia (7) Shoulder pain, left Assessment & Plan: Await ortho consult. (8) Tendinopathy of left shoulder Status: not improved JIMMIE OROZCO Jan 05, 2017 13:19
[2017-01-05 16:15] VITALS: BP 100/62
[2017-01-05 20:00] VITALS: BP 106/64
[2017-01-05] MEDS: Atorvastatin 20mg tab ORAL SCH (20:30)
[2017-01-06] VITALS: BP 118/75
[2017-01-06 04:00] VITALS: BP 120/75
[2017-01-06] MEDS: D5 1/2NS w/KCl 20mEq 1,000 ML IV SCH ×3 (06:38→22:30)
[2017-01-06 08:00] VITALS: BP 108/64
[2017-01-06] MEDS: Valproic Acid 250mg/5ml Liquid ORAL SCH ×2 (09:48→20:19)
[2017-01-06] MEDS: Topiramate 100mg tab ORAL SCH ×2 (09:48→20:19)
[2017-01-06] MEDS: Bethanechol 10mg Tab ORAL SCH ×3 (09:49→17:10)
[2017-01-06] MEDS: Sertraline 50mg tab ORAL SCH (09:49)
[2017-01-06] MEDS: levETIRAcetam 500mg/5ml Liquid ORAL SCH ×2 (09:49→20:20)
[2017-01-06] MEDS: Losartan 50mg tab ORAL SCH (09:49)
[2017-01-06] MEDS: Heparin 5000 units/ml inj SUBQ SCH ×2 (09:50→20:21)
[2017-01-06 10:29] LABS: BASOPHILS % (AUTO) 0.9 % (0.0-2.0); EOSINOPHILS % (AUTO) 5.3 % (0.0-3.0); LYMPHOCYTES % (AUTO) 31.5 % (20.0-45.0); MEAN CORPUSCULAR HEMOGLOBIN 28.4 PG (27.0-31.0); MEAN CORPUSCULAR HGB CONC 32.3 G/DL (32.0-36.0); MEAN CORPUSCULAR VOLUME 88 FL (80-99); MEAN PLATELET VOLUME 5.1 FL (6.5-10.1); MONOCYTES % (AUTO) 9.3 % (1.0-10.0); NEUTROPHILS % (AUTO) 52.9 % (45.0-75.0); PLATELET COUNT 172 K/UL (150-450); RED BLOOD COUNT 5.21 M/UL (4.70-6.10); WHITE BLOOD COUNT 4.5 K/UL (4.8-10.8)
[2017-01-06 10:40] LABS: ANION GAP 14 (5-15); CARBON DIOXIDE 22 mEQ/L (20-30); CHLORIDE 100 mEQ/L (98-107); CREATININE 0.7 mg/dL (0.7-1.2); GLOMERULAR FILTRATION RATE > 60 mL/min (>60); HEMOLYSIS 9; POTASSIUM 4.1 mEQ/L (3.4-4.9); SODIUM 136 mEQ/L (135-145)
[2017-01-06 12:15] VITALS: BP 106/77
[2017-01-06 15:48] VITALS: BP 110/74
--- NOTE | 2017-01-06 16:43 | Internal Med Progress Note ---
Subjective Date of Service: Jan 06, 2017 Physician Name Jimmie Orozco Attending Physician Jimmie Orozco Current Medications Medications (Trade) Dose Ordered Sig/Rufus Route PRN Reason Start Time Stop Time Status Last Admin Dose Admin Acetaminophen (Tylenol) 650 mg Q4H PRN ORAL Mild Pain (Pain Scale 1-3) 01/03/17 17:45 02/02/17 17:44 Albuterol Sulfate (Proventil MDI) 2 puff Q6H PRN INH Shortness of Breath 01/03/17 17:45 02/02/17 17:44 Amlodipine Besylate (Norvasc) 2.5 mg DAILY ORAL 01/04/17 09:00 02/03/17 08:59 01/06/17 09:49 Atorvastatin Calcium (Lipitor) 20 mg BEDTIME ORAL 01/03/17 21:00 02/02/17 20:59 01/05/17 20:30 Bethanechol Chloride (Urecholine) 10 mg THREE TIMES A DAY ORAL 01/03/17 21:00 02/02/17 20:59 01/06/17 12:33 Dextrose (Dextrose 50%) STAT PRN IV Hypoglycemia 01/03/17 17:45 02/02/17 17:44 Dextrose/ Electrolytes (D5 0.45%NS W/ KCl 20mEq) 1,000 ml @ 100 mls/hr Q10H IV 01/03/17 20:00 02/02/17 19:59 01/06/17 06:38 Fish Oil (Fish Oil) 1,000 mg DAILY ORAL 01/04/17 09:00 02/03/17 08:59 01/06/17 09:49 Heparin Sodium (Porcine) (Heparin 5000 units/ml) 5,000 units EVERY 12 HOURS SUBQ 01/03/17 21:00 02/02/17 20:59 01/06/17 09:50 Ibuprofen (Advil) 600 mg Q8H PRN ORAL For Pain 01/03/17 17:45 02/02/17 17:44 Levetiracetam (Keppra) 2,000 mg Q12HR ORAL 01/04/17 21:00 02/03/17 20:59 01/06/17 09:49 Lorazepam (Ativan 2mg/ml 1ml) 2 mg Q2H PRN IV For Seizures 01/03/17 17:45 01/10/17 17:44 Losartan Potassium (Cozaar) 50 mg DAILY ORAL 01/04/17 09:00 02/03/17 08:59 01/06/17 09:49 Pantoprazole (Protonix) 40 mg DAILY ORAL 01/03/17 21:00 02/02/17 20:59 01/06/17 09:48 Risperidone (RisperDAL) 1 mg DAILY ORAL 01/04/17 17:00 02/03/17 16:59 01/06/17 09:49 Sertraline HCl (Zoloft) 25 mg DAILY ORAL 01/04/17 09:00 02/03/17 08:59 01/06/17 09:49 Topiramate (Topamax) 200 mg Q12HR ORAL 01/03/17 21:36 02/02/17 20:59 01/06/17 09:48 Valproic Acid (Depakene) 1,250 mg Q12HR ORAL 01/04/17 21:00 02/03/17 20:59 01/06/17 09:48 Allergies: Coded Allergies: PHENYTOIN (Verified Allergy, Mild, Rash, 10/18/15) stated patient had a rash reaction to dilantin PENICILLINS (Unverified Allergy, Unknown, 01/29/16) TRAMADOL (Unverified Allergy, Unknown, 09/24/14) ROS Limited/Unobtainable: No Constitutional: Reports: no symptoms HEENT: Reports: no symptoms Cardiovascular: Reports: no symptoms Respiratory: Reports: no symptoms Gastrointestinal/Abdominal: Reports: no symptoms Genitourinary: Reports: no symptoms Neurologic/Psychiatric: Reports: no symptoms Subjective 46 YO M admitted with intractable seizure. No new seizure overnight. Await psych consult. C/O headache and weakness. Objective Last Vital Signs Date Time Temp Pulse Resp B/P Pulse Ox O2 Delivery O2 Flow Rate FiO2 01/06/17 15:48 97.9 80 20 110/74 97 Room Air 01/06/17 04:00 2.0 Laboratory Tests Test 01/06/17 10:00 White Blood Count 4.5 K/UL (4.8-10.8) L Red Blood Count 5.21 M/UL (4.70-6.10) Hemoglobin 14.8 G/DL (14.2-18.0) Hematocrit 45.8 % (42.0-52.0) Mean Corpuscular Volume 88 FL (80-99) Mean Corpuscular Hemoglobin 28.4 PG (27.0-31.0) Mean Corpuscular Hemoglobin Concent 32.3 G/DL (32.0-36.0) Red Cell Distribution Width 12.0 % (11.6-14.8) Platelet Count 172 K/UL (150-450) Mean Platelet Volume 5.1 FL (6.5-10.1) L Neutrophils (%) (Auto) 52.9 % (45.0-75.0) Lymphocytes (%) (Auto) 31.5 % (20.0-45.0) Monocytes (%) (Auto) 9.3 % (1.0-10.0) Eosinophils (%) (Auto) 5.3 % (0.0-3.0) H Basophils (%) (Auto) 0.9 % (0.0-2.0) Sodium Level 136 mEQ/L (135-145) Potassium Level 4.1 mEQ/L (3.4-4.9) Chloride Level 100 mEQ/L (98-107) Carbon Dioxide Level 22 mEQ/L (20-30) Anion Gap 14 (5-15) Blood Urea Nitrogen 11 mg/dL (7-23) Creatinine 0.7 mg/dL (0.7-1.2) Estimat Glomerular Filtration Rate > 60 mL/min (>60) Glucose Level 119 mg/dL (74-106) H Calcium Level 9.0 mg/dL (8.6-10.2) Intake and Output 01/05/17 01/06/17 19:00 07:00 Intake Total 1480 ml 1000 ml Output Total 1200 ml 1800 ml Balance 280 ml -800 ml Intake Oral 480 ml IV Total 1000 ml 1000 ml Output Urine Total 1200 ml 1800 ml Objective General Appearance: WD/WN, no apparent distress, alert EENT: PERRL/EOMI, normal ENT inspection Neck: non-tender, normal alignment, supple, normal inspection Cardiovascular: normal peripheral pulses, normal rate, regular rhythm, no gallop/murmur, no JVD Respiratory/Chest: chest wall non-tender, lungs clear, normal breath sounds, no respiratory distress, no accessory muscle use Abdomen: normal bowel sounds, non tender, soft, no organomegaly, no mass Extremities: normal range of motion 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 (2) Seizure disorder (3) Epileptic seizure, generalized (4) Uncontrolled seizures Assessment & Plan: Continue keppra, depakote and topamax. See neurology note. (5) HTN (hypertension) (6) Hypercholesteremia (7) Shoulder pain, left Assessment & Plan: Await ortho consult. (8) Tendinopathy of left shoulder (9) Development delay Status: progressing JIMMIE OROZCO Jan 06, 2017 16:42
[2017-01-06 20:00] VITALS: BP 114/69
[2017-01-06] MEDS: Atorvastatin 20mg tab ORAL SCH ×2 (20:20→22:50)
[2017-01-06] MEDS ORDERED: LORazepam Inj 2mg/ml 1ml IV PRN (21:45)
[2017-01-06] MEDS ORDERED: Albuterol 90mcg Inhaler 8gm INH PRN (22:00)
[2017-01-07] VITALS: BP 119/60
[2017-01-07 04:00] VITALS: BP 108/70
[2017-01-07] MEDS: D5 1/2NS w/KCl 20mEq 1,000 ML IV SCH ×2 (04:29→12:55)
[2017-01-07 04:57] LABS: BASOPHILS % (AUTO) 1.4 % (0.0-2.0); EOSINOPHILS % (AUTO) 6.1 % (0.0-3.0); MEAN CORPUSCULAR HEMOGLOBIN 29.6 PG (27.0-31.0); MEAN CORPUSCULAR HGB CONC 33.8 G/DL (32.0-36.0); MEAN CORPUSCULAR VOLUME 88 FL (80-99); MEAN PLATELET VOLUME 5.2 FL (6.5-10.1); MONOCYTES % (AUTO) 8.3 % (1.0-10.0); NEUTROPHILS % (AUTO) 46.2 % (45.0-75.0); PLATELET COUNT 152 K/UL (150-450); RED BLOOD COUNT 4.59 M/UL (4.70-6.10); WHITE BLOOD COUNT 4.3 K/UL (4.8-10.8)
[2017-01-07 05:11] LABS: ANION GAP 9 (5-15); CALCIUM 8.5 mg/dL (8.6-10.2); CARBON DIOXIDE 24 mEQ/L (20-30); CHLORIDE 100 mEQ/L (98-107); CREATININE 0.7 mg/dL (0.7-1.2); GLOMERULAR FILTRATION RATE > 60 mL/min (>60); HEMOLYSIS 7; POTASSIUM 3.8 mEQ/L (3.4-4.9); SODIUM 133 mEQ/L (135-145)
[2017-01-07 07:13] VITALS: BP 109/65
[2017-01-07] MEDS: Losartan 50mg tab ORAL SCH (08:52)
[2017-01-07] MEDS: Topiramate 100mg tab ORAL SCH ×2 (08:53→21:08)
[2017-01-07] MEDS: Valproic Acid 250mg/5ml Liquid ORAL SCH ×2 (08:54→21:06)
[2017-01-07] MEDS: levETIRAcetam 500mg/5ml Liquid ORAL SCH ×2 (08:55→21:06)
[2017-01-07] MEDS: Heparin 5000 units/ml inj SUBQ SCH ×2 (08:56→21:12)
[2017-01-07] MEDS ORDERED: Sertraline 50mg tab ORAL SCH (09:00)
[2017-01-07] MEDS: Bethanechol 10mg Tab ORAL SCH ×3 (09:09→18:22)
[2017-01-07 12:14] VITALS: BP 121/73
[2017-01-07 16:20] VITALS: BP 106/65
--- NOTE | 2017-01-07 17:33 | Internal Med Progress Note ---
Subjective Date of Service: Jan 07, 2017 Physician Name Jimmie Orozco Attending Physician Jimmie Orozco Current Medications Medications (Trade) Dose Ordered Sig/Rufus Route PRN Reason Start Time Stop Time Status Last Admin Dose Admin Acetaminophen (Tylenol) 650 mg Q4H PRN ORAL Mild Pain (Pain Scale 1-3) 01/06/17 21:45 02/05/17 21:44 Albuterol Sulfate (Proventil MDI) 2 puff Q6H PRN INH Shortness of Breath 01/06/17 22:00 02/05/17 21:59 Amlodipine Besylate (Norvasc) 2.5 mg DAILY ORAL 01/07/17 09:00 02/06/17 08:59 01/07/17 08:53 Atorvastatin Calcium (Lipitor) 20 mg BEDTIME ORAL 01/06/17 23:00 02/05/17 22:59 Bethanechol Chloride (Urecholine) 10 mg THREE TIMES A DAY ORAL 01/07/17 09:00 02/06/17 08:59 01/07/17 12:54 Dextrose (Dextrose 50%) STAT PRN IV Hypoglycemia 01/06/17 22:00 02/05/17 21:59 Dextrose/ Electrolytes (D5 0.45%NS W/ KCl 20mEq) 1,000 ml @ 100 mls/hr Q10H IV 01/06/17 22:30 02/05/17 22:29 01/07/17 12:55 Fish Oil (Fish Oil) 1,000 mg DAILY ORAL 01/07/17 09:00 02/06/17 08:59 01/07/17 08:53 Heparin Sodium (Porcine) (Heparin 5000 units/ml) 5,000 units EVERY 12 HOURS SUBQ 01/07/17 09:00 02/06/17 08:59 01/07/17 08:56 Ibuprofen (Advil) 600 mg Q8H PRN ORAL For Pain 01/06/17 22:30 02/05/17 22:29 01/07/17 09:10 Levetiracetam (Keppra) 2,000 mg Q12HR ORAL 01/07/17 09:00 02/06/17 08:59 01/07/17 08:55 Lorazepam (Ativan 2mg/ml 1ml) 2 mg Q2H PRN IV For Seizures 01/06/17 21:45 01/13/17 21:44 Losartan Potassium (Cozaar) 50 mg DAILY ORAL 01/07/17 09:00 02/06/17 08:59 01/07/17 08:52 Pantoprazole (Protonix) 40 mg DAILY ORAL 01/07/17 09:00 02/06/17 08:59 01/07/17 08:52 Risperidone (RisperDAL) 1 mg DAILY ORAL 01/07/17 09:00 02/06/17 08:59 01/07/17 08:54 Sertraline HCl (Zoloft) 25 mg DAILY ORAL 01/07/17 09:00 02/06/17 08:59 01/07/17 08:54 Topiramate (Topamax) 200 mg Q12HR ORAL 01/07/17 09:00 02/06/17 08:59 01/07/17 08:53 Valproic Acid (Depakene) 1,250 mg Q12HR ORAL 01/07/17 09:00 02/06/17 08:59 01/07/17 08:54 Allergies: Coded Allergies: PHENYTOIN (Verified Allergy, Mild, Rash, 10/18/15) stated patient had a rash reaction to dilantin PENICILLINS (Unverified Allergy, Unknown, 01/29/16) TRAMADOL (Unverified Allergy, Unknown, 09/24/14) ROS Limited/Unobtainable: No Constitutional: Reports: no symptoms HEENT: Reports: no symptoms Cardiovascular: Reports: no symptoms Respiratory: Reports: no symptoms Gastrointestinal/Abdominal: Reports: no symptoms Genitourinary: Reports: no symptoms Neurologic/Psychiatric: Reports: no symptoms Subjective 46 YO M admitted with intractable seizure. No new seizure overnight. C/O right hand swelling. Await Psych consult. Objective Last Vital Signs Date Time Temp Pulse Resp B/P Pulse Ox O2 Delivery O2 Flow Rate FiO2 01/07/17 16:20 97.3 73 14 106/65 97 Room Air 01/06/17 04:00 2.0 Laboratory Tests Test 01/07/17 04:00 White Blood Count 4.3 K/UL (4.8-10.8) L Red Blood Count 4.59 M/UL (4.70-6.10) L Hemoglobin 13.6 G/DL (14.2-18.0) L Hematocrit 40.3 % (42.0-52.0) L Mean Corpuscular Volume 88 FL (80-99) Mean Corpuscular Hemoglobin 29.6 PG (27.0-31.0) Mean Corpuscular Hemoglobin Concent 33.8 G/DL (32.0-36.0) Red Cell Distribution Width 12.0 % (11.6-14.8) Platelet Count 152 K/UL (150-450) Mean Platelet Volume 5.2 FL (6.5-10.1) L Neutrophils (%) (Auto) 46.2 % (45.0-75.0) Lymphocytes (%) (Auto) 38.0 % (20.0-45.0) Monocytes (%) (Auto) 8.3 % (1.0-10.0) Eosinophils (%) (Auto) 6.1 % (0.0-3.0) H Basophils (%) (Auto) 1.4 % (0.0-2.0) Sodium Level 133 mEQ/L (135-145) L Potassium Level 3.8 mEQ/L (3.4-4.9) Chloride Level 100 mEQ/L (98-107) Carbon Dioxide Level 24 mEQ/L (20-30) Anion Gap 9 (5-15) Blood Urea Nitrogen 9 mg/dL (7-23) Creatinine 0.7 mg/dL (0.7-1.2) Estimat Glomerular Filtration Rate > 60 mL/min (>60) Glucose Level 105 mg/dL (74-106) Calcium Level 8.5 mg/dL (8.6-10.2) L Intake and Output 01/06/17 01/07/17 19:00 07:00 Intake Total 1490 ml 650 ml Output Total 2050 ml 850 ml Balance -560 ml -200 ml Intake Oral 490 ml IV Total 1000 ml 650 ml Output Urine Total 2050 ml 850 ml # Bowel Movements 3 3 Objective General Appearance: WD/WN, no apparent distress, alert EENT: PERRL/EOMI, normal ENT inspection Neck: non-tender, normal alignment, supple, normal inspection Cardiovascular: normal peripheral pulses, normal rate, regular rhythm, no gallop/murmur, no JVD Respiratory/Chest: chest wall non-tender, lungs clear, normal breath sounds, no respiratory distress, no accessory muscle use Abdomen: normal bowel sounds, non tender, soft, no organomegaly, no mass Extremities: normal range of motion 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 (2) Seizure disorder (3) Epileptic seizure, generalized (4) Uncontrolled seizures Assessment & Plan: Continue keppra, depakote and topamax. See neurology note. (5) HTN (hypertension) (6) Hypercholesteremia (7) Shoulder pain, left Assessment & Plan: Await ortho consult. (8) Tendinopathy of left shoulder (9) Development delay (10) Swelling of right hand Assessment & Plan: Await venous doppler right arm to R/O DVT Status: progressing Assessment/Plan Discharge planning JIMMIE OROZCO Jan 07, 2017 17:33
[2017-01-07 20:00] VITALS: BP 146/56
[2017-01-07] MEDS: Atorvastatin 20mg tab ORAL SCH (21:07)
[2017-01-08] VITALS (7 sets, daily range): BP systolic 103–134; BP diastolic 60–79
--- NOTE | 2017-01-08 03:18 | Consultation ---
DATE OF CONSULTATION: 01/07/2017 HISTORY OF PRESENT ILLNESS: This is a 46-year-old male with unknown past psychiatric history, who has been admitted after he was recently discharged a couple weeks ago with a similar presentation. The patient complained of seizure activities. The patient has received full workup and his laboratory workups are negative including imaging negative for any pathology or any seizure activities. The patient insists that he has had a seizure and it is unclear whether the patient has been having compliance issue with medications. During evaluation, the patient appeared with depressed mood, flat affect, decreased energy, demotivated, and not engaged during the evaluation. He also has poor insight into his current condition. He also complained of being tired and having headaches. PAST PSYCHIATRIC HISTORY: He denies any psychiatric hospitalizations or any suicide attempts in the past. It is also noted in the medical record that he has several mental disabilities. PAST MEDICAL HISTORY: Significant for electrolyte imbalance, hypertension, GERD, and developmental disabilities. ALLERGIES: No known drug allergies. SUBSTANCE ABUSE HISTORY: No known history of illicit drug use or alcohol. MENTAL STATUS: He is alert and oriented x3. Mood is depressed. Affect is constricted and congruent with mood. Thought process is concrete. Thought content, no suicidal or homicidal ideations. ASSESSMENT: AXIS I: Major depressive disorder. Rule out somatoform disorder. AXIS II: Developmental disability. AXIS III: None. AXIS IV: Low. AXIS V: 25. PLAN: 1. The patient's Zoloft will be increased to 50 mg q.a.m. 2. The patient would discuss in detail in regards to possibility of somatoform disorder. Katarzyna Valle M.D. DR: CLEMENTE JOB#: [id number] CC:
[2017-01-08 07:04] LABS: BASOPHILS % (AUTO) 1.1 % (0.0-2.0); EOSINOPHILS % (AUTO) 5.8 % (0.0-3.0); LYMPHOCYTES % (AUTO) 37.4 % (20.0-45.0); MEAN CORPUSCULAR HEMOGLOBIN 29.3 PG (27.0-31.0); MEAN CORPUSCULAR HGB CONC 33.6 G/DL (32.0-36.0); MEAN CORPUSCULAR VOLUME 87 FL (80-99); MEAN PLATELET VOLUME 5.1 FL (6.5-10.1); MONOCYTES % (AUTO) 5.4 % (1.0-10.0); NEUTROPHILS % (AUTO) 50.3 % (45.0-75.0); PLATELET COUNT 151 K/UL (150-450); RED BLOOD COUNT 5.03 M/UL (4.70-6.10); WHITE BLOOD COUNT 4.4 K/UL (4.8-10.8)
[2017-01-08 07:20] LABS: ANION GAP 15 (5-15); CALCIUM 8.6 mg/dL (8.6-10.2); CARBON DIOXIDE 20 mEQ/L (20-30); CHLORIDE 97 mEQ/L (98-107); CREATININE 0.6 mg/dL (0.7-1.2); GLOMERULAR FILTRATION RATE > 60 mL/min (>60); HEMOLYSIS 7; POTASSIUM 4.1 mEQ/L (3.4-4.9); SODIUM 132 mEQ/L (135-145)
[2017-01-08] MEDS: Topiramate 100mg tab ORAL SCH ×2 (09:13→20:33)
[2017-01-08] MEDS: Valproic Acid 250mg/5ml Liquid ORAL SCH ×2 (09:13→20:33)
[2017-01-08] MEDS: levETIRAcetam 500mg/5ml Liquid ORAL SCH ×2 (09:14→20:32)
[2017-01-08] MEDS: Losartan 50mg tab ORAL SCH (09:14)
[2017-01-08] MEDS: Sertraline 50mg tab ORAL SCH (09:14)
[2017-01-08] MEDS: Bethanechol 10mg Tab ORAL SCH ×3 (09:14→17:42)
[2017-01-08] MEDS: Heparin 5000 units/ml inj SUBQ SCH ×2 (09:16→20:40)
[2017-01-08] MEDS: Atorvastatin 20mg tab ORAL SCH (20:33)
[2017-01-09 04:00] VITALS: BP 107/60
[2017-01-09 07:17] LABS: BASOPHILS % (AUTO) 1.4 % (0.0-2.0); EOSINOPHILS % (AUTO) 5.7 % (0.0-3.0); LYMPHOCYTES % (AUTO) 29.9 % (20.0-45.0); MEAN CORPUSCULAR HEMOGLOBIN 29.4 PG (27.0-31.0); MEAN CORPUSCULAR HGB CONC 33.6 G/DL (32.0-36.0); MEAN CORPUSCULAR VOLUME 87 FL (80-99); MONOCYTES % (AUTO) 7.7 % (1.0-10.0); NEUTROPHILS % (AUTO) 55.3 % (45.0-75.0); PLATELET COUNT 145 K/UL (150-450); RED BLOOD COUNT 4.79 M/UL (4.70-6.10); RED CELL DISTRIBUTION WIDTH 11.9 % (11.6-14.8); WHITE BLOOD COUNT 4.3 K/UL (4.8-10.8)
[2017-01-09 07:42] LABS: ANION GAP 15 (5-15); CALCIUM 8.5 mg/dL (8.6-10.2); CARBON DIOXIDE 21 mEQ/L (20-30); CHLORIDE 96 mEQ/L (98-107); CREATININE 0.6 mg/dL (0.7-1.2); GLOMERULAR FILTRATION RATE > 60 mL/min (>60); HEMOLYSIS 4; POTASSIUM 3.8 mEQ/L (3.4-4.9); SODIUM 132 mEQ/L (135-145)
[2017-01-09 08:00] VITALS: BP 110/70
[2017-01-09] MEDS: Valproic Acid 250mg/5ml Liquid ORAL SCH ×2 (08:53→20:34)
[2017-01-09] MEDS: Losartan 50mg tab ORAL SCH (08:54)
[2017-01-09] MEDS: Bethanechol 10mg Tab ORAL SCH ×3 (08:54→18:01)
[2017-01-09] MEDS: Topiramate 100mg tab ORAL SCH ×2 (08:54→20:33)
[2017-01-09] MEDS: Sertraline 50mg tab ORAL SCH (08:54)
[2017-01-09] MEDS: Heparin 5000 units/ml inj SUBQ SCH ×2 (08:55→20:34)
[2017-01-09] MEDS: levETIRAcetam 500mg/5ml Liquid ORAL SCH ×2 (08:55→20:33)
[2017-01-09 12:00] VITALS: BP 112/73
[2017-01-09 16:00] VITALS: BP 96/57
--- NOTE | 2017-01-09 16:27 | Internal Med Progress Note ---
Subjective Date of Service: Jan 09, 2017 Physician Name Jimmie Orozco Attending Physician Jimmie Orozco Current Medications Medications (Trade) Dose Ordered Sig/Rufus Route PRN Reason Start Time Stop Time Status Last Admin Dose Admin Acetaminophen (Tylenol) 650 mg Q4H PRN ORAL Mild Pain (Pain Scale 1-3) 01/06/17 21:45 02/05/17 21:44 Albuterol Sulfate (Proventil MDI) 2 puff Q6H PRN INH Shortness of Breath 01/06/17 22:00 02/05/17 21:59 Amlodipine Besylate (Norvasc) 2.5 mg DAILY ORAL 01/07/17 09:00 02/06/17 08:59 01/09/17 08:54 Atorvastatin Calcium (Lipitor) 20 mg BEDTIME ORAL 01/06/17 23:00 02/05/17 22:59 01/08/17 20:33 Bethanechol Chloride (Urecholine) 10 mg THREE TIMES A DAY ORAL 01/07/17 09:00 02/06/17 08:59 01/09/17 13:23 Dextrose (Dextrose 50%) STAT PRN IV Hypoglycemia 01/06/17 22:00 02/05/17 21:59 Fish Oil (Fish Oil) 1,000 mg DAILY ORAL 01/07/17 09:00 02/06/17 08:59 01/09/17 08:54 Heparin Sodium (Porcine) (Heparin 5000 units/ml) 5,000 units EVERY 12 HOURS SUBQ 01/07/17 09:00 02/06/17 08:59 01/08/17 20:40 Ibuprofen (Advil) 600 mg Q8H PRN ORAL For Pain 01/06/17 22:30 02/05/17 22:29 01/09/17 09:10 Levetiracetam (Keppra) 2,000 mg Q12HR ORAL 01/07/17 09:00 02/06/17 08:59 01/09/17 08:55 Lorazepam (Ativan 2mg/ml 1ml) 2 mg Q2H PRN IV For Seizures 01/06/17 21:45 01/13/17 21:44 Losartan Potassium (Cozaar) 50 mg DAILY ORAL 01/07/17 09:00 02/06/17 08:59 01/09/17 08:54 Pantoprazole (Protonix) 40 mg DAILY ORAL 01/07/17 09:00 02/06/17 08:59 01/09/17 08:54 Risperidone (RisperDAL) 1 mg DAILY ORAL 01/07/17 09:00 02/06/17 08:59 01/09/17 08:54 Sertraline HCl (Zoloft) 50 mg DAILY ORAL 01/08/17 09:00 02/07/17 08:59 01/09/17 08:54 Topiramate (Topamax) 200 mg Q12HR ORAL 01/07/17 09:00 02/06/17 08:59 01/09/17 08:54 Valproic Acid (Depakene) 1,250 mg Q12HR ORAL 01/07/17 09:00 02/06/17 08:59 01/09/17 08:53 Allergies: Coded Allergies: PHENYTOIN (Verified Allergy, Mild, Rash, 10/18/15) stated patient had a rash reaction to dilantin PENICILLINS (Unverified Allergy, Unknown, 01/29/16) TRAMADOL (Unverified Allergy, Unknown, 09/24/14) ROS Limited/Unobtainable: No Constitutional: Reports: no symptoms HEENT: Reports: no symptoms Cardiovascular: Reports: no symptoms Respiratory: Reports: no symptoms Gastrointestinal/Abdominal: Reports: no symptoms Genitourinary: Reports: no symptoms Neurologic/Psychiatric: Reports: no symptoms Subjective 46 YO M admitted with intractable seizure. No new seizure overnight. Await prison fac placement. Objective Last Vital Signs Date Time Temp Pulse Resp B/P Pulse Ox O2 Delivery O2 Flow Rate FiO2 01/09/17 12:00 97.3 73 20 112/73 98 Room Air 01/06/17 04:00 2.0 Laboratory Tests Test 01/09/17 05:15 White Blood Count 4.3 K/UL (4.8-10.8) L Red Blood Count 4.79 M/UL (4.70-6.10) Hemoglobin 14.1 G/DL (14.2-18.0) L Hematocrit 41.9 % (42.0-52.0) L Mean Corpuscular Volume 87 FL (80-99) Mean Corpuscular Hemoglobin 29.4 PG (27.0-31.0) Mean Corpuscular Hemoglobin Concent 33.6 G/DL (32.0-36.0) Red Cell Distribution Width 11.9 % (11.6-14.8) Platelet Count 145 K/UL (150-450) L Mean Platelet Volume 5.0 FL (6.5-10.1) L Neutrophils (%) (Auto) 55.3 % (45.0-75.0) Lymphocytes (%) (Auto) 29.9 % (20.0-45.0) Monocytes (%) (Auto) 7.7 % (1.0-10.0) Eosinophils (%) (Auto) 5.7 % (0.0-3.0) H Basophils (%) (Auto) 1.4 % (0.0-2.0) Sodium Level 132 mEQ/L (135-145) L Potassium Level 3.8 mEQ/L (3.4-4.9) Chloride Level 96 mEQ/L (98-107) L Carbon Dioxide Level 21 mEQ/L (20-30) Anion Gap 15 (5-15) Blood Urea Nitrogen 11 mg/dL (7-23) Creatinine 0.6 mg/dL (0.7-1.2) L Estimat Glomerular Filtration Rate > 60 mL/min (>60) Glucose Level 93 mg/dL (74-106) Calcium Level 8.5 mg/dL (8.6-10.2) L Intake and Output 01/08/17 01/09/17 19:00 07:00 Intake Total 560 ml 300 ml Output Total 500 ml 270 ml Balance 60 ml 30 ml Intake Oral 560 ml 300 ml Output Urine Total 500 ml 270 ml # Voids 1 # Bowel Movements 2 Objective General Appearance: WD/WN, no apparent distress, alert EENT: PERRL/EOMI, normal ENT inspection Neck: non-tender, normal alignment, supple, normal inspection Cardiovascular: normal peripheral pulses, normal rate, regular rhythm, no gallop/murmur, no JVD Respiratory/Chest: chest wall non-tender, lungs clear, normal breath sounds, no respiratory distress, no accessory muscle use Abdomen: normal bowel sounds, non tender, soft, no organomegaly, no mass Extremities: normal range of motion 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 (2) Seizure disorder (3) Epileptic seizure, generalized (4) Uncontrolled seizures Assessment & Plan: Continue keppra, depakote and topamax. See neurology note. (5) HTN (hypertension) (6) Hypercholesteremia (7) Shoulder pain, left Assessment & Plan: Await ortho consult. (8) Tendinopathy of left shoulder (9) Development delay (10) Swelling of right hand Assessment & Plan: Await venous doppler right arm to R/O DVT Status: progressing Assessment/Plan Discharge planning: need for intensive physical therapy, not available at board and care. Await prison facility placement. JIMMIE OROZCO Jan 09, 2017 16:27
[2017-01-09] MEDS ORDERED: DEPAKENE L250 MG/5 M ORAL (16:38)
[2017-01-09] MEDS ORDERED: MELOXICAM15 MG ORAL (16:38)
[2017-01-09] MEDS ORDERED: TOPAMAX100 MG ORAL (16:38)
[2017-01-09] MEDS ORDERED: KEPPRA LIQ100 MG/1 M ORAL (16:38)
[2017-01-09] MEDS: Meloxicam 15 MG TAB ORAL SCH (18:01)
[2017-01-09] MEDS: Sodium Chloride 1gm Tab ORAL SCH (18:01)
[2017-01-09 19:00] VITALS: BP 107/61
[2017-01-09] MEDS: Atorvastatin 20mg tab ORAL SCH (20:33)
[2017-01-10] VITALS: BP 134/97
[2017-01-10 04:00] VITALS: BP 117/69
[2017-01-10 05:52] LABS: BASOPHILS % (AUTO) 1.4 % (0.0-2.0); EOSINOPHILS % (AUTO) 5.7 % (0.0-3.0); LYMPHOCYTES % (AUTO) 28.9 % (20.0-45.0); MEAN CORPUSCULAR HEMOGLOBIN 29.6 PG (27.0-31.0); MEAN CORPUSCULAR VOLUME 87 FL (80-99); MEAN PLATELET VOLUME 5.4 FL (6.5-10.1); MONOCYTES % (AUTO) 9.7 % (1.0-10.0); NEUTROPHILS % (AUTO) 54.3 % (45.0-75.0); PLATELET COUNT 143 K/UL (150-450); RED BLOOD COUNT 4.63 M/UL (4.70-6.10); RED CELL DISTRIBUTION WIDTH 11.6 % (11.6-14.8); WHITE BLOOD COUNT 4.4 K/UL (4.8-10.8)
[2017-01-10 06:21] LABS: ANION GAP 14 (5-15); CALCIUM 8.4 mg/dL (8.6-10.2); CARBON DIOXIDE 22 mEQ/L (20-30); CHLORIDE 95 mEQ/L (98-107); CREATININE 0.7 mg/dL (0.7-1.2); GLOMERULAR FILTRATION RATE > 60 mL/min (>60); HEMOLYSIS 8; POTASSIUM 4.1 mEQ/L (3.4-4.9); SODIUM 131 mEQ/L (135-145)
[2017-01-10 08:07] VITALS: BP 102/79
[2017-01-10] MEDS: Heparin 5000 units/ml inj SUBQ SCH (09:00)
[2017-01-10] MEDS: Losartan 50mg tab ORAL SCH (09:00)
[2017-01-10] MEDS: Valproic Acid 250mg/5ml Liquid ORAL SCH (09:10)
[2017-01-10] MEDS: Sodium Chloride 1gm Tab ORAL SCH ×3 (09:11→17:34)
[2017-01-10] MEDS: Sertraline 50mg tab ORAL SCH (09:11)
[2017-01-10] MEDS: levETIRAcetam 500mg/5ml Liquid ORAL SCH (09:11)
[2017-01-10] MEDS: Topiramate 100mg tab ORAL SCH (09:12)
[2017-01-10] MEDS: Meloxicam 15 MG TAB ORAL SCH (09:12)
[2017-01-10] MEDS: Bethanechol 10mg Tab ORAL SCH ×3 (09:19→17:34)
[2017-01-10 11:51] VITALS: BP 107/66
--- NOTE | 2017-01-10 14:31 | Diagnostic Imaging Report ---
APPROVED REPORT CPT Code: 81300 Present Symptoms Upper Extremity Pain: Right RIGHT UPPER EXTREMITY: Venous imaging reveals patency of the internal jugular, subclavian, axillary and brachial veins. The cephalic and basilic veins are also patent. Doppler indicates normal spontaneous flow within these venous segments.
[2017-01-10 15:57] VITALS: BP 112/72
--- NOTE | 2017-01-10 18:16 | Internal Med Progress Note ---
Subjective Date of Service: Jan 10, 2017 Physician Name Jimmie Orozco Attending Physician Jimmie Orozco Current Medications Medications (Trade) Dose Ordered Sig/Rufus Route PRN Reason Start Time Stop Time Status Last Admin Dose Admin Acetaminophen (Tylenol) 650 mg Q4H PRN ORAL Mild Pain (Pain Scale 1-3) 01/06/17 21:45 02/05/17 21:44 Albuterol Sulfate (Proventil MDI) 2 puff Q6H PRN INH Shortness of Breath 01/06/17 22:00 02/05/17 21:59 Amlodipine Besylate (Norvasc) 2.5 mg DAILY ORAL 01/07/17 09:00 02/06/17 08:59 01/09/17 08:54 Atorvastatin Calcium (Lipitor) 20 mg BEDTIME ORAL 01/06/17 23:00 02/05/17 22:59 01/09/17 20:33 Bethanechol Chloride (Urecholine) 10 mg THREE TIMES A DAY ORAL 01/07/17 09:00 02/06/17 08:59 01/10/17 17:34 Dextrose (Dextrose 50%) STAT PRN IV Hypoglycemia 01/06/17 22:00 02/05/17 21:59 Fish Oil (Fish Oil) 1,000 mg DAILY ORAL 01/07/17 09:00 02/06/17 08:59 01/10/17 09:11 Heparin Sodium (Porcine) (Heparin 5000 units/ml) 5,000 units EVERY 12 HOURS SUBQ 01/07/17 09:00 02/06/17 08:59 01/08/17 20:40 Levetiracetam (Keppra) 2,000 mg Q12HR ORAL 01/07/17 09:00 02/06/17 08:59 01/10/17 09:11 Lorazepam (Ativan 2mg/ml 1ml) 2 mg Q2H PRN IV For Seizures 01/06/17 21:45 01/13/17 21:44 Losartan Potassium (Cozaar) 50 mg DAILY ORAL 01/07/17 09:00 02/06/17 08:59 01/09/17 08:54 Meloxicam (Mobic) 15 mg DAILY ORAL 01/09/17 17:00 02/08/17 16:59 01/10/17 09:12 Pantoprazole (Protonix) 40 mg DAILY ORAL 01/07/17 09:00 02/06/17 08:59 01/10/17 09:12 Risperidone (RisperDAL) 1 mg DAILY ORAL 01/07/17 09:00 02/06/17 08:59 01/10/17 09:11 Sertraline HCl (Zoloft) 50 mg DAILY ORAL 01/08/17 09:00 02/07/17 08:59 01/10/17 09:11 Sodium Chloride (NaCl) 1 gm THREE TIMES A DAY ORAL 01/09/17 18:00 02/08/17 17:59 01/10/17 17:34 Topiramate (Topamax) 200 mg Q12HR ORAL 01/07/17 09:00 02/06/17 08:59 01/10/17 09:12 Valproic Acid (Depakene) 1,250 mg Q12HR ORAL 01/07/17 09:00 02/06/17 08:59 01/10/17 09:10 Allergies: Coded Allergies: PHENYTOIN (Verified Allergy, Mild, Rash, 10/18/15) stated patient had a rash reaction to dilantin PENICILLINS (Unverified Allergy, Unknown, 01/29/16) TRAMADOL (Unverified Allergy, Unknown, 09/24/14) ROS Limited/Unobtainable: No Constitutional: Reports: no symptoms HEENT: Reports: no symptoms Cardiovascular: Reports: no symptoms Respiratory: Reports: no symptoms Gastrointestinal/Abdominal: Reports: no symptoms Genitourinary: Reports: no symptoms Neurologic/Psychiatric: Reports: no symptoms Subjective 46 YO M admitted with intractable seizure. No new seizure overnight. Await discharge to [facility] Objective Last Vital Signs Date Time Temp Pulse Resp B/P Pulse Ox O2 Delivery O2 Flow Rate FiO2 01/10/17 15:57 97.9 70 19 112/72 97 Room Air 01/06/17 04:00 2.0 Laboratory Tests Test 01/10/17 04:55 White Blood Count 4.4 K/UL (4.8-10.8) L Red Blood Count 4.63 M/UL (4.70-6.10) L Hemoglobin 13.7 G/DL (14.2-18.0) L Hematocrit 40.4 % (42.0-52.0) L Mean Corpuscular Volume 87 FL (80-99) Mean Corpuscular Hemoglobin 29.6 PG (27.0-31.0) Mean Corpuscular Hemoglobin Concent 34.0 G/DL (32.0-36.0) Red Cell Distribution Width 11.6 % (11.6-14.8) Platelet Count 143 K/UL (150-450) L Mean Platelet Volume 5.4 FL (6.5-10.1) L Neutrophils (%) (Auto) 54.3 % (45.0-75.0) Lymphocytes (%) (Auto) 28.9 % (20.0-45.0) Monocytes (%) (Auto) 9.7 % (1.0-10.0) Eosinophils (%) (Auto) 5.7 % (0.0-3.0) H Basophils (%) (Auto) 1.4 % (0.0-2.0) Sodium Level 131 mEQ/L (135-145) L Potassium Level 4.1 mEQ/L (3.4-4.9) Chloride Level 95 mEQ/L (98-107) L Carbon Dioxide Level 22 mEQ/L (20-30) Anion Gap 14 (5-15) Blood Urea Nitrogen 11 mg/dL (7-23) Creatinine 0.7 mg/dL (0.7-1.2) Estimat Glomerular Filtration Rate > 60 mL/min (>60) Glucose Level 97 mg/dL (74-106) Calcium Level 8.4 mg/dL (8.6-10.2) L Intake and Output 01/09/17 01/10/17 19:00 07:00 Intake Total 1000 ml 360 ml Balance 1000 ml 360 ml Intake Oral 1000 ml 360 ml # Voids 8 4 # Bowel Movements 7 Objective General Appearance: WD/WN, no apparent distress, alert EENT: PERRL/EOMI, normal ENT inspection Neck: non-tender, normal alignment, supple, normal inspection Cardiovascular: normal peripheral pulses, normal rate, regular rhythm, no gallop/murmur, no JVD Respiratory/Chest: chest wall non-tender, lungs clear, normal breath sounds, no respiratory distress, no accessory muscle use Abdomen: normal bowel sounds, non tender, soft, no organomegaly, no mass Extremities: normal range of motion 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 (2) Seizure disorder (3) Epileptic seizure, generalized (4) Uncontrolled seizures Assessment & Plan: Continue keppra, depakote and topamax. See neurology note. (5) HTN (hypertension) (6) Hypercholesteremia (7) Shoulder pain, left Assessment & Plan: Await ortho consult. (8) Tendinopathy of left shoulder (9) Development delay (10) Swelling of right hand Assessment & Plan: Await venous doppler right arm to R/O DVT Status: stable Assessment/Plan Discharge planning: need for intensive physical therapy, not available at board and care. Await transfer to [facility] assisted facility today. JIMMIE OROZCO Jan 10, 2017 18:16
--- NOTE | 2017-01-12 09:07 | Discharge Summary ---
Discharge Summary Hospital Course Date of Admission Jan 03, 2017 at 14:55 Date of Discharge Jan 10, 2017 at 20:15 Admitting Diagnosis recurrent seizures HPI Rene Sykes is a 46 year old male who was admitted on Jan 03, 2017 at 14:55 for Recurrent Seizures Hospital Course dc summary #[id number] Discharge Medications New Medications: Levetiracetam (Keppra) 100 Mg/1 Ml Solution 2000 MG ORAL Q12HR for 30 Days, EA Meloxicam* (Meloxicam*) 15 Mg Tablet 15 MG ORAL DAILY for 30 Days, TAB Topiramate (Topamax) 100 Mg Tablet 200 MG ORAL Q12HR for 30 Days, TAB Valproic Acid (Valproic Acid) 250 Mg/5 Ml Solution 1250 MG ORAL Q12HR for 30 Days, EA Continued Medications: Albuterol Sulfate* (Proair Hfa*) 8.5 Gm Hfa.aer.ad 2 PUFFS INH Q6H PRN for Shortness of Breath, #8.5 GM 0 Refills Amlodipine Besylate (Norvasc) 2.5 Mg Tab 2.5 MG ORAL DAILY, #30 TAB Atorvastatin Calcium* (Atorvastatin Calcium*) 20 Mg Tablet 20 MG ORAL BEDTIME, TAB Bethanechol* (Bethanechol*) 10 Mg Tablet 10 MG ORAL THREE TIMES A DAY, TAB Calcium Acetate/Aluminum Sulf ([place] Packet) 1 Each Packet 1 EACH TP Cholecalciferol (Vitamin D3) (Vitamin D3) 5,000 Unit Tablet 5000 UNIT PO DAILY, TAB Clonazepam* (Klonopin*) 1 Mg Tablet 5 MG ORAL QHS, #15 TAB 0 Refills Clonazepam* (Klonopin*) 0.5 Mg Tablet Unknown Dose ORAL Q6H, #15 TAB 0 Refills Divalproex Sodium (Depakote) 500 Mg Tabec 500 MG PO BID, TAB Docusate Sodium* (Colace*) 100 Mg Capsule 100 MG ORAL BID, CAP Ibuprofen* (Motrin*) 600 Mg Tablet 600 MG ORAL Q8H PRN for For Pain, #30 TAB Losartan Potassium* (Losartan Potassium*) 50 Mg Tablet 50 MG ORAL DAILY, TAB [place]-3 Fatty Acids/Fish Oil* (Fish Oil 1,000 Mg Softgel*) 1 Each Capsule 1 CAP ORAL DAILY, #30 CAP 0 Refills Omeprazole (Prilosec) 20 Mg Capsule.dr 40 MG ORAL DAILY, CAP Ondansetron Odt* (Zofran Odt*) 4 Mg Tab.rapdis 4 MG ORAL Q6H PRN for Nausea & Vomiting, #30 TAB Ranitidine Hcl* (Zantac*) 150 Mg Tablet 150 MG ORAL TWICE A DAY, #30 TAB Sertraline Hcl* (Sertraline Hcl*) 25 Mg Tablet 25 MG ORAL DAILY, TAB Sertraline Hcl* (Zoloft*) 25 Mg Tablet Unknown Dose ORAL DAILY, TAB Temazepam* (Restoril*) 15 Mg Cap 15 MG ORAL HSPRN PRN for Insomnia, #30 CAP Topiramate* (Topamax*) 25 Mg Tablet Unknown Dose ORAL DAILY, #30 TAB 0 Refills Unable to Obtain Medications (Unable To Obtain Meds) 1 Ea Ea Discontinued Medications: Divalproex Sodium* (Depakote*) 250 Mg Tablet.dr 750 MG ORAL BID, #60 TAB Levetiracetam (Levetiracetam) 500 Mg Tab 1000 MG ORAL Q12HR, #60 TAB Discharge Condition Upon Discharge: stable Discharge Disposition Patient was discharged to SNF/Subacute Facility(03) Discharge Diagnoses: Discharge Instructions Discharge Instructions Special Instructions I have been assigned to complete a D/C Summary on this account. I was not involved in the patient management Prudence Dixon NP ([facility]) Jan 12, 2017 09:07
--- NOTE | 2017-01-13 02:38 | Discharge Summary 2 SIG ---
DATE OF ADMISSION: 01/03/2017 DATE OF DISCHARGE: 01/10/2017 REASON FOR ADMISSION: The patient is a 46-year-old male, presented to the emergency department after having a seizure in the bus stop. The patient is on Depakote, Topamax, and Keppra. The patient also complained of the shoulder pain. After seizure, the patient with history of seizure disorder and hospitalization for that. ADMITTING DIAGNOSES: 1. Chronic generalized seizure disorder and pseudoseizure exacerbation. 2. Developmental delay. 3. Depression and anxiety. 4. Hypertension. 5. Left shoulder pain. HOSPITAL STAY: The patient is admitted to the hospital. Neurology consult was requested. The patient was maintained on seizure precaution and observed for any additional paroxysmal event and no further seizure. The patient on Depakote, Topamax, and Keppra. Depakote level therapeutic. Depakote, Topamax, and Keppra were all increased to maximal level. According to neurologist, the patient to be seen by psychiatrist to address issue of seizure treatment. 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 Zoloft dose was increased. Per psychiatrist, the patient was monitored for any pseudoseizure, no further pseudoseizure. Blood pressure was managed with the ARB and calcium-channel mounika and was stable. Statin was continued. Pain management was addressed. X-ray of the left shoulder revealed no evidence of fracture or dislocation. Joint spaces are preserved. The patient likely have left shoulder tendinopathy and needs further PT/OT treatment. The patient noted to have a swelling on the right hand. Venous duplex was negative for DVT. Placement was arranged to the senior living facility since the patient will need intensive physical therapy, not available at the board and care. The patient was transferred to senior living facility when bed was arranged and secured. DISCHARGE DIAGNOSES: 1. Seizure disorder, complex partial with intractable epilepsy. 2. Developmental disability. 3. 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 4. Major depressive disorder. 5. Hypertension. 6. Hyperlipidemia. 7. Left shoulder pain. 8. Left shoulder tendinopathy. DISCHARGE MEDICATIONS: See medication reconciliation list. DISCHARGE INSTRUCTIONS: The patient discharged to the senior living facility. FOLLOWUP: Follow up with medical doctor at the facility. Jimmie Lang M.D. I have been assigned to dictate discharge summary on this account and I was not involved in the patient's management. Prudence Dixon N.P. (vanchtein) DR: GILLIAN JOB#: [id number] CC:
== END 2017-01-10 20:15 | DRG 101 ==
LOC: EDBD 10:56 → EMR 13:25 → 2E 14:55 → EDBEDREQ 01-04 06:01 → 2E 01-04 06:49 → 4E 01-06 21:17
DX: G40.419 Other generalized epilepsy and epileptic syndromes, intractable, without status epilepticus (principal); I10 Essential (primary) hypertension; J45.998 Other asthma; E78.00 Pure hypercholesterolemia, unspecified; Z88.6 Allergy status to analgesic agent; Z88.0 Allergy status to penicillin; Z88.8 Allergy status to other drugs, medicaments and biological substances; Z91.19 Patient's noncompliance with other medical treatment and regimen; M75.52 Bursitis of left shoulder; F79 Unspecified intellectual disabilities; K21.9 Gastro-esophageal reflux disease without esophagitis; F32.9 Major depressive disorder, single episode, unspecified
CPT/HCPCS: 36415; 36569; 76937; 80048; 80053; 80061; 80164; 80299; 81003; 85025; 87081; 93971

== ENCOUNTER 2017-02-19 11:42 | Emergency (ER) | payer MEDICARE, MEDICAID ==
[~2017-02-19] VITALS: Ht 157.5 cm; Wt 90.7 kg
[~2017-02-19 11:42] MED LIST changes: +DEPAKENE L250 MG/5 M ORAL; +MELOXICAM15 MG ORAL
[2017-02-19 11:50] VITALS: BP 141/90
--- NOTE | 2017-02-19 11:52 | Emergency Room Report ---
History of Present Illness General Chief Complaint: Seizure Source: Patient, Medical Record, EMS Present Illness HPI 46YOM BIBEMS with alleged seizure. Patient compliant with BID ?keppra, took this morning. States he's had right lower back pain for 3 days, thinks thats why he fell. Denies hitting head, LOC, other injury. Last seizure was last week. Was not post-ictal per EMS, not given any meds. No additional seizures en route. However, per EMR, patient is on max doses of Depakote, topamax, and keppra. Multiple visits to ED and admissions for seizrue disorder Per last Neurology Cx note, [facility] EMR indicates history of pseudo-seizure Noted pseudo-seizure activity in our ED and [facility] as well Psych cx last admission concern for somatoform disorder Allergies: Coded Allergies: PHENYTOIN (Verified Allergy, Mild, Rash, 10/18/15) stated patient had a rash reaction to dilantin PENICILLINS (Unverified Allergy, Unknown, 01/29/16) TRAMADOL (Unverified Allergy, Unknown, 09/24/14) Patient History Past Medical History: seizures Past Surgical History: none Pertinent Family History: none Social History: Denies: alcohol use, drug use, smoking Immunizations: UTD Reviewed Nursing Documentation: PMH: Agreed, PSxH: Agreed Nursing Documentation-PMH Hx Cardiac Problems: Yes Hx Hypertension: Yes Hx Asthma: Yes Hx Diabetes: Yes Hx Cancer: No Hx Gastrointestinal Problems: Yes Hx Neurological Problems: Yes Hx Cerebrovascular Accident: Yes Hx Seizures: Yes Hx Epilepsy: Yes Hx Headaches: Yes Review of Systems All Other Systems: negative except mentioned in HPI Physical Exam Vital Signs Date Time Temp Pulse Resp B/P Pulse Ox O2 Delivery O2 Flow Rate FiO2 02/19/17 11:30 100 18 126/79 99 Room Air Sp02 EP Interpretation: reviewed, normal General Appearance: normal inspection, well appearing, no apparent distress, alert, GCS 15, non-toxic Head: normocephalic, atraumatic Eyes: bilateral eye EOMI, bilateral eye PERRL ENT: normal ENT inspection, hearing grossly normal, normal voice Neck: normal inspection, full range of motion, supple, no bony tend Respiratory: normal inspection, lungs clear, normal breath sounds, no respiratory distress, no retraction, no wheezing Cardiovascular #1: regular rate, rhythm, no edema Gastrointestinal: normal inspection, normal bowel sounds, non tender, soft, no guarding, no hernia Genitourinary: no CVA tenderness Musculoskeletal: back normal, other - Mild right lower back ttp. No ecchymoses Neurologic: normal inspection, alert, oriented x3, responsive, chief technician III-XII nml as tested, DTRs symmetric, speech normal Psychiatric: normal inspection, judgement/insight normal, mood/affect normal Skin: normal inspection, normal color, no rash Medical Decision Making Diagnostic Impression: Primary Impression: Fall Qualified Codes: W19.XXXA - Unspecified fall, initial encounter Additional Impressions: Lower back pain Qualified Codes: M54.5 - Low back pain Seizure disorder ER Course 46 YOM with generalized seizure disorder and pseudo-seizure history Alleged seizure earlier however not post-ictal immediately after While in ED, I was alerted by RN that patient "having a seizure." Upon arrival bedside, patient's right hand moving in circles. Vitals remained stable - no tachycardia or hypertensive - during this short 30 sec seizure. When I raised patient's hands above face and dropped them, he purposefully moved them away from his face. He was not rigid. He immediately became alert and oriented after episode. I wanted to check keppra and depakote levels in the ED but patient refused and wants to "take the bus home." His right LBP resolved after PO tylenol He has no signs of trauma to the area He ambulated with steady gait out of the ED I advised him to followup with Neurology or his PMD Rhythm Strip Diag. Results EP Interpretation: yes Rate: 85 Rhythm: NSR, no PVC's, no ectopy Last Vital Signs Date Time Temp Pulse Resp B/P Pulse Ox O2 Delivery O2 Flow Rate FiO2 02/19/17 11:30 100 18 126/79 99 Room Air Status: improved Disposition: HOME, SELF-CARE DARREL REED M.D. Feb 19, 2017 11:52
[2017-02-19] MEDS ORDERED: LORazepam Inj 2mg/ml 1ml ONE (12:06)
[2017-02-19 13:47] VITALS: BP 113/63
== END 2017-02-19 14:21 | disposition home or self-care (01) ==
LOC: EDBD 11:42 → EMR 13:18 → EDBD 13:18 → EMR 14:21
DX: G40.909 Epilepsy, unspecified, not intractable, without status epilepticus (principal); M54.5 Low back pain; Z91.81 History of falling; Z88.0 Allergy status to penicillin; Z88.6 Allergy status to analgesic agent; Z88.8 Allergy status to other drugs, medicaments and biological substances; I10 Essential (primary) hypertension; E11.9 Type 2 diabetes mellitus without complications; Z86.73 Personal history of transient ischemic attack (TIA), and cerebral infarction without residual deficits
CPT/HCPCS: 99283

== ENCOUNTER 2017-04-30 16:41 | Emergency (ER) | payer MEDICARE, MEDICAID ==
[~2017-04-30] VITALS: Ht 167.6 cm; Wt 74.8 kg
[2017-04-30 16:56] VITALS: BP 144/88
[2017-04-30] MEDS ORDERED: LORazepam Inj 2mg/ml 1ml IV ONE (17:00)
[2017-04-30] MEDS ORDERED: Ketorolac 30mg Inj IV ONE (17:00)
--- NOTE | 2017-04-30 17:02 | Emergency Room Report ---
History of Present Illness General Chief Complaint: Abdominal Pain Source: Patient, EMS Present Illness HPI Paramedics were called to a [employer] [place] where this patient apparently was unable to ambulate. There is some question about whether the patient had a seizure. Paramedics state patient was incontinence. They also claimed that he has a medic-alert necklace which states the patient has pseudo-seizures. An Accu-Chek in the field was in the 100s. The patient states he's been able to take his medication but complains about headache, epigastric pain and also pain in his feet. He states because of the pain in his feet he's unable to ambulate at this time. He has developmental delay and other history is questionable. Patient is supposed to be taking valproic acid, Trileptal and Keppra. He was admitted 01/03 - 01/10: DISCHARGE DIAGNOSES: 1. Seizure disorder, complex partial with intractable epilepsy. 2. Developmental disability. 3. 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 4. Major depressive disorder. 5. Hypertension. 6. Hyperlipidemia. 7. Left shoulder pain. 8. Left shoulder tendinopathy. Staff recognize patient and state there is a history of leaving the board and care and ingesting alcohol. Allergies: Coded Allergies: PHENYTOIN (Verified Allergy, Mild, Rash, 10/18/15) stated patient had a rash reaction to dilantin PENICILLINS (Unverified Allergy, Unknown, 01/29/16) TRAMADOL (Unverified Allergy, Unknown, 09/24/14) Patient History Past Medical History: see triage record Social History: Reports: alcohol use Social History Narrative board and care Reviewed Nursing Documentation: PMH: Agreed, PSxH: Agreed Nursing Documentation-PM Hx Cardiac Problems: No Hx Hypertension: Yes Hx Pacemaker: No Hx Asthma: No Hx Diabetes: Yes Hx Cancer: No Hx Gastrointestinal Problems: Yes Hx Neurological Problems: Yes Hx Cerebrovascular Accident: No Hx Seizures: Yes Hx Epilepsy: Yes Hx Headaches: Yes Review of Systems All Other Systems: negative except mentioned in HPI - but also limited by questionable verasity Physical Exam Vital Signs Date Time Temp Pulse Resp B/P Pulse Ox O2 Delivery O2 Flow Rate FiO2 04/30/17 16:46 98.1 78 16 130/78 98 Room Air Sp02 EP Interpretation: reviewed, normal General Appearance: well appearing, no apparent distress, alert Head: normocephalic Eyes: bilateral eye PERRL, bilateral eye Scleral Injection ENT: moist mucus membranes - no lingual macerations, other - parotid enlargement Neck: supple Respiratory: lungs clear, normal breath sounds Cardiovascular #1: regular rate, rhythm Cardiovascular #2: 2+ radial (R) Gastrointestinal: normal inspection, normal bowel sounds, non tender, no mass, non-distended, overweight Musculoskeletal: back normal, normal range of motion, tender - bilateral feet/ heels Neurologic: alert, dyeing machine back tender III-XII nml as tested, motor strength/tone normal, DTRs symmetric, sensory intact, speech normal, oriented - X2 Psychiatric: anxious Skin: warm/dry, other - plethoric Medical Decision Making Diagnostic Impression: Primary Impression: Noncompliance with antiepileptic medication Additional Impressions: Alcohol abuse Developmental delay ER Course Patient presents with alleged seizure. Differential includes pseudoseizure, epileptic seizure, electrolyte abnormalities, subtherapeutic medication. Emergent evaluation is undertaken. There is a nonfocal neurologic exam at this time and CT is not indicated of the head. Also complains about pain in his heels and being unable to ambulate. He be treated with Toradol and Ativan. Workup will be to ascertain medication levels, CMP, CBC, urinalysis EKG and chest x-ray. No evidence of cellulitis. Labs with neg valproic acid. + alcohol. Patient improved with toradol. Valproic acid given here. Ambulatory. Poor insight. Patient stable for outpatient observation and treatment. Someone from board and care came for patient. Laboratory Tests Test 04/30/17 17:45 04/30/17 17:59 White Blood Count 5.4 K/UL (4.8-10.8) Red Blood Count 4.53 M/UL (4.70-6.10) L Hemoglobin 13.9 G/DL (14.2-18.0) L Hematocrit 40.4 % (42.0-52.0) L Mean Corpuscular Volume 89 FL (80-99) Mean Corpuscular Hemoglobin 30.7 PG (27.0-31.0) Mean Corpuscular Hemoglobin Concent 34.4 G/DL (32.0-36.0) Red Cell Distribution Width 11.6 % (11.6-14.8) Platelet Count 216 K/UL (150-450) Mean Platelet Volume 5.1 FL (6.5-10.1) L Neutrophils (%) (Auto) 72.3 % (45.0-75.0) Lymphocytes (%) (Auto) 17.0 % (20.0-45.0) L Monocytes (%) (Auto) 8.4 % (1.0-10.0) Eosinophils (%) (Auto) 1.1 % (0.0-3.0) Basophils (%) (Auto) 1.1 % (0.0-2.0) Sodium Level 138 mEQ/L (135-145) Potassium Level 3.8 mEQ/L (3.4-4.9) Chloride Level 102 mEQ/L (98-107) Carbon Dioxide Level 21 mEQ/L (20-30) Anion Gap 15 (5-15) Blood Urea Nitrogen 6 mg/dL (7-23) L Creatinine 0.8 mg/dL (0.7-1.2) Estimate Glomerular Filtration Rate > 60 mL/min (>60) Glucose Level 114 mg/dL (74-106) H Calcium Level 9.5 mg/dL (8.6-10.2) Total Bilirubin < 0.2 mg/dL (0.0-1.2) Aspartate Amino Transferase (AST) 17 U/L (5-40) Alanine Aminotransferase (ALT) 21 U/L (3-41) Alkaline Phosphatase 77 U/L (40-129) Total Creatine Kinase 157 U/L (38-174) Total Protein 7.1 g/dL (6.6-8.7) Albumin 4.2 g/dL (3.5-5.2) Globulin 2.9 g/dL Albumin/Globulin Ratio 1.4 (1.0-2.7) Salicylates Level < 1 mg/dL (10-30) L Acetaminophen Level < 10 ug/mL (10-30) L Valproic Acid Level < 3 ug/mL (50-100) L Serum Alcohol 33 mg/dL Urine Color Pale yellow Urine Appearance Clear Urine pH 6 (4.5-8.0) Urine Specific [place] 1.005 (1.005-1.035) Urine Protein Negative (NEGATIVE) Urine Glucose (UA) Negative (NEGATIVE) Urine Ketones Negative (NEGATIVE) Urine Occult Blood Negative (NEGATIVE) Urine Nitrite Negative (NEGATIVE) Urine Bilirubin Negative (NEGATIVE) Urine Urobilinogen Normal MG/DL (0.0-1.0) Urine Leukocyte Esterase Negative (NEGATIVE) Urine Opiates Screen Pending Urine Barbiturates Screen Pending Phencyclidine (PCP) Screen Pending Urine Amphetamines Screen Pending Urine Benzodiazepines Screen Pending Urine Cocaine Screen Pending Urine Marijuana (THC) Screen Pending EKG Diagnostic Results Rate: tachycardiac ST Segments: no acute changes Rhythm Strip Diag. Results EP Interpretation: yes Rhythm: no PVC's, no ectopy, other - sinus tachycardic Chest X-Ray Diagnostic Results Chest X-Ray Diagnostic Results : Chest X-Ray Ordered: Yes # of Views/Limited/Complete: 1 View Indication: Other EP Interpretation: Yes Interpretation: no consolidation, no effusion, no pneumothorax, no acute cardiopulmonary disease Impression: No acute disease Interpreting ER Provider: Electronically signed by Anthony Ellison MD Last Vital Signs Date Time Temp Pulse Resp B/P Pulse Ox O2 Delivery O2 Flow Rate FiO2 04/30/17 20:58 98.0 102 20 144/88 95 Room Air Status: improved Disposition: HOME, SELF-CARE - board and care Condition: Improved Anthony Ellison M.D. Apr 30, 2017 17:02
[2017-04-30 17:57] LABS: BASOPHILS % (AUTO) 1.1 % (0.0-2.0); EOSINOPHILS % (AUTO) 1.1 % (0.0-3.0); MEAN CORPUSCULAR HEMOGLOBIN 30.7 PG (27.0-31.0); MEAN CORPUSCULAR HGB CONC 34.4 G/DL (32.0-36.0); MEAN CORPUSCULAR VOLUME 89 FL (80-99); MEAN PLATELET VOLUME 5.1 FL (6.5-10.1); MONOCYTES % (AUTO) 8.4 % (1.0-10.0); NEUTROPHILS % (AUTO) 72.3 % (45.0-75.0); PLATELET COUNT 216 K/UL (150-450); RED BLOOD COUNT 4.53 M/UL (4.70-6.10); RED CELL DISTRIBUTION WIDTH 11.6 % (11.6-14.8); WHITE BLOOD COUNT 5.4 K/UL (4.8-10.8)
[2017-04-30] MEDS ORDERED: LORazepam Inj 2mg/ml 1ml IM ONE (18:15)
[2017-04-30] MEDS ORDERED: Ketorolac 60mg Inj IM ONE (18:15)
[2017-04-30 18:25] LABS: APPEARANCE,URINE CLEAR; KETONES,URINE NEGATIVE (NEGATIVE); LEUKOCYTE ESTERASE ,URINE NEGATIVE (NEGATIVE); NITRITE,URINE NEGATIVE (NEGATIVE); PH,URINE 6 (4.5-8.0); PROTEIN,URINE NEGATIVE (NEGATIVE); UROBILINOGEN,URINE NORMAL MG/DL (0.0-1.0)
[2017-04-30 18:26] LABS: ACETAMINOPHEN < 10 ug/mL (10-30); ALANINE AMINOTRANSFERASE 21 U/L (3-41); ALBUMIN/GLOBULIN RATIO 1.4 (1.0-2.7); ALCOHOL 33 mg/dL; ANION GAP 15 (5-15); ASPARTATE AMINO TRANSFERASE 17 U/L (5-40); CALCIUM 9.5 mg/dL (8.6-10.2); CARBON DIOXIDE 21 mEQ/L (20-30); CHLORIDE 102 mEQ/L (98-107); CREATININE 0.8 mg/dL (0.7-1.2); GLOMERULAR FILTRATION RATE > 60 mL/min (>60); HEMOLYSIS 11; POTASSIUM 3.8 mEQ/L (3.4-4.9); SODIUM 138 mEQ/L (135-145); TOTAL PROTEIN 7.1 g/dL (6.6-8.7); VALPROIC ACID < 3 ug/mL (50-100)
[2017-04-30 20:58] VITALS: BP 144/88
--- NOTE | 2017-05-01 17:51 | Cardiology Report ---
APPROVED REPORT EKG Measurement Heart [id number] Sinus tachycardia T wave abnormality, consider inferior ischemia Abnormal ECG
--- NOTE | 2017-05-02 08:30 | Diagnostic Imaging Report ---
Indication: Dyspnea Comparison: 12/21/16 A single view chest radiograph was obtained. Findings: Cardiomediastinal appearance is within normal limits for age. Lungs are grossly clear but low in volume. Pulmonary vascularity is appropriate. The diaphragmatic contour is smooth and costophrenic angles are sharp. No pleural effusions are identified. The bones are osteopenic. Impression: No acute findings
== END 2017-04-30 20:58 | disposition home or self-care (01) ==
LOC: EMR 17:43
DX: F10.10 Alcohol abuse, uncomplicated (principal); R62.50 Unspecified lack of expected normal physiological development in childhood; Z91.14 Patient's other noncompliance with medication regimen; I10 Essential (primary) hypertension; G40.909 Epilepsy, unspecified, not intractable, without status epilepticus; Z88.0 Allergy status to penicillin; Z88.8 Allergy status to other drugs, medicaments and biological substances; E11.9 Type 2 diabetes mellitus without complications; E66.3 Overweight; R00.0 Tachycardia, unspecified; M85.80 Other specified disorders of bone density and structure, unspecified site
CPT/HCPCS: 36415; 71010; 80053; 80164; 80300; 81003; 82550; 82962; 85025; 93005; 96360; 96372; 99284; G0480; 80329

== ENCOUNTER 2017-05-21 13:29 | Inpatient (IN) | payer MEDICARE, MEDICAID ==
[~2017-05-21] VITALS: Ht 152.4 cm; Wt 96.9 kg
[2017-05-21 13:33] VITALS: BP 144/81
[2017-05-21] MEDS ORDERED: Acetaminophen 650 MG SUPP RECTAL ONE (13:45)
[2017-05-21 14:00] VITALS: BP 148/84
[2017-05-21 15:00] VITALS: BP 141/79
[2017-05-21] MEDS ORDERED: Vancomycin 1 GM in D5W 275 ML IVPB ONE (15:30)
[2017-05-21] MEDS ORDERED: Cefepime HCl 1 GM in D5W 55 ML IVPB ONE (15:30)
[2017-05-21] MEDS ORDERED: LORazepam Inj 2mg/ml 1ml IV ONE (15:30)
[2017-05-21] MEDS ORDERED: metroNIDAZOLE 500mg 100 ML IVPB ONE (15:30)
--- NOTE | 2017-05-21 15:31 | Emergency Room Report ---
History of Present Illness General Chief Complaint: Seizure Source: Patient, EMS Present Illness HPI Paramedics were called for seizure. The patient received Versed 5 mg IM. The patient continued to have seizures. He has a seizures and pseudoseizures. He also has a history of ingesting alcohol. He denies any head trauma at this time. Glucose in field was 108. The patient was seen by me recently. Was able to be discharged to board and care. At that time his valproic acid level was subtherapeutic. He was given or valproic acid here before discharge. The patient denies any cough, sore throat, nausea, vomiting, diarrhea, dysuria or cough. He was outside. He has developmental delay, DM, obesity. Allergies: Coded Allergies: PHENYTOIN (Verified Allergy, Mild, Rash, 10/18/15) stated patient had a rash reaction to dilantin PENICILLINS (Unverified Allergy, Unknown, 01/29/16) TRAMADOL (Unverified Allergy, Unknown, 09/24/14) Patient History Past Medical History: see triage record Social History: Reports: alcohol use Social History Narrative assisted living Reviewed Nursing Documentation: PMH: Agreed, PSxH: Agreed Nursing Documentation-PMH Past Medical History: No History, Except For Hx Cardiac Problems: No Hx Hypertension: Yes Hx Pacemaker: No Hx Asthma: No Hx Diabetes: Yes Hx Cancer: No Hx Gastrointestinal Problems: Yes Hx Neurological Problems: Yes Hx Cerebrovascular Accident: No Hx Seizures: Yes Hx Epilepsy: Yes Hx Headaches: Yes Review of Systems All Other Systems: negative except mentioned in HPI Physical Exam Vital Signs Date Time Temp Pulse Resp B/P (MAP) Pulse Ox O2 Delivery O2 Flow Rate FiO2 05/21/17 13:25 102.2 99 18 164/83 99 Room Air Sp02 EP Interpretation: reviewed, normal General Appearance: well appearing, no apparent distress, other - GCS 14 Head: normocephalic Eyes: bilateral eye PERRL, bilateral eye Scleral Injection ENT: moist mucus membranes Neck: full range of motion, supple, no meningismus Respiratory: chest non-tender, lungs clear, normal breath sounds Cardiovascular #1: regular rate, rhythm Cardiovascular #2: 2+ radial (R) Gastrointestinal: normal inspection, normal bowel sounds, non tender, no mass, overweight Genitourinary: normal inspection, other - superficial ulceration glans Musculoskeletal: back normal, gait/station normal, normal range of motion Neurologic: alert, motor strength/tone normal, DTRs symmetric, sensory intact, cerebellar normal, speech normal, oriented - X2 Psychiatric: depressed affect Skin: normal inspection, warm/dry Procedures Central Line Central Line : Consent: Verbal Central Line Lumen: triple Maximal Sterile Barrier Tech: yes cap, yes mask, yes sterile gown, yes sterile gloves, yes large sterile sheet, yes hand hygiene, yes chlorhexidine prep Central Line Postion: internal jugular (R) Anesthesia: Lidocaine Complications: none Central Line Post Position: sutured, good blood return, position confirmed w / CXR Attempts: One Patient Tolerated: Well Complications: None Progress CVP placed with ultrasound Medical Decision Making Diagnostic Impression: Primary Impression: Seizure Additional Impressions: Fever Qualified Codes: R50.9 - Fever, unspecified Noncompliance Development delay ER Course The patient with presents with a seizure. He has a history of seizures and pseudoseizures. He is evaluated with labs and EKG. He has a nonfocal neurologic exam at this time and CT is not indicated. The patient also has a fever. He is to be evaluated with blood cultures. Lactate is not ordered because the patient had a seizure and expect to be elevated. This would not reflect whether the patient is septic or not. Clinically, the patient is not septic. After hydration the patient will have a lactate done. The patient be covered with antibiotics at this time. There is no obvious source. Other than infection, considerations for seizure in hot weather, viral process, medication reaction amongst others. There are no signs of meningitis. The patient is back to his baseline exam similar to 04/30/17 ( performed by nm). Centra line was started in the right internal jugular area after nurses could not find IV. Labs were drawn from this site by the nurse. This is done under ultrasound guidance and patient tolerated the procedure well. Estimated blood loss was 2 mL. Chest x-ray confirmed CVP in the right atrium. No evidence of infiltrates. No leukocytosis. BA negative. Valproic acid level = nil. Loading with valproic acid IV. Discussed with Dr. Lang. Admit telemetry. Patient improved with decreased temperature. Laboratory Tests Test 05/21/17 15:25 05/21/17 15:46 Urine Color Pale yellow Urine Appearance Clear Urine pH 6.5 (4.5-8.0) Urine Specific [place] 1.010 (1.005-1.035) Urine Protein Negative (NEGATIVE) Urine Glucose (UA) Negative (NEGATIVE) Urine Ketones Negative (NEGATIVE) Urine Occult Blood Negative (NEGATIVE) Urine Nitrite Negative (NEGATIVE) Urine Bilirubin Negative (NEGATIVE) Urine Urobilinogen Normal MG/DL (0.0-1.0) Urine Leukocyte Esterase Negative (NEGATIVE) Urine Opiates Screen Negative (NEGATIVE) Urine Barbiturates Screen Negative (NEGATIVE) Phencyclidine (PCP) Screen Negative (NEGATIVE) Urine Amphetamines Screen Negative (NEGATIVE) Urine Benzodiazepines Screen Positive (NEGATIVE) H Urine Cocaine Screen Negative (NEGATIVE) Urine Marijuana (THC) Screen Negative (NEGATIVE) White Blood Count 7.4 K/UL (4.8-10.8) Red Blood Count 4.74 M/UL (4.70-6.10) Hemoglobin 14.4 G/DL (14.2-18.0) Hematocrit 40.5 % (42.0-52.0) L Mean Corpuscular Volume 85 FL (80-99) Mean Corpuscular Hemoglobin 30.5 PG (27.0-31.0) Mean Corpuscular Hemoglobin Concent 35.7 G/DL (32.0-36.0) Red Cell Distribution Width 11.0 % (11.6-14.8) L Platelet Count 191 K/UL (150-450) Mean Platelet Volume 5.5 FL (6.5-10.1) L Neutrophils (%) (Auto) 68.5 % (45.0-75.0) Lymphocytes (%) (Auto) 21.9 % (20.0-45.0) Monocytes (%) (Auto) 7.1 % (1.0-10.0) Eosinophils (%) (Auto) 1.0 % (0.0-3.0) Basophils (%) (Auto) 1.5 % (0.0-2.0) Sodium Level 131 mEQ/L (135-145) L Potassium Level 4.0 mEQ/L (3.4-4.9) Chloride Level 95 mEQ/L (98-107) L Carbon Dioxide Level 23 mEQ/L (20-30) Anion Gap 13 (5-15) Blood Urea Nitrogen 6 mg/dL (7-23) L Creatinine 0.7 mg/dL (0.7-1.2) Estimate Glomerular Filtration Rate > 60 mL/min (>60) Glucose Level 119 mg/dL (74-106) H Calcium Level 9.4 mg/dL (8.6-10.2) Total Bilirubin 0.3 mg/dL (0.0-1.2) Aspartate Amino Transferase (AST) 20 U/L (5-40) Alanine Aminotransferase (ALT) 14 U/L (3-41) Alkaline Phosphatase 76 U/L (40-129) Total Creatine Kinase 250 U/L (38-174) H Total Protein 7.1 g/dL (6.6-8.7) Albumin 4.2 g/dL (3.5-5.2) Globulin 2.9 g/dL Albumin/Globulin Ratio 1.4 (1.0-2.7) Salicylates Level < 1 mg/dL (10-30) L Acetaminophen Level < 10 ug/mL (10-30) L Valproic Acid Level < 3 ug/mL (50-100) L Serum Alcohol < 10 mg/dL EKG Diagnostic Results Rate: tachycardiac Rhythm: NSR ST Segments: no acute changes Rhythm Strip Diag. Results EP Interpretation: yes Rhythm: no PVC's, no ectopy, other - ST Chest X-Ray Diagnostic Results Chest X-Ray Diagnostic Results : Chest X-Ray Ordered: Yes # of Views/Limited/Complete: 1 View Indication: Other EP Interpretation: Yes Interpretation: no consolidation, no effusion, no pneumothorax, other - CVP in right atrium Impression: Other Interpreting ER Provider: Electronically signed by Anthony Ellison MD Last Vital Signs Date Time Temp Pulse Resp B/P (MAP) Pulse Ox O2 Delivery O2 Flow Rate FiO2 05/22/17 00:00 97.7 93 19 133/87 96 Room Air Status: improved Disposition: ADMITTED INPATIENT Condition: Serious Referrals: NOT CHOSEN CARL/,REFERRING (PCP) Anthony Ellison M.D. May 21, 2017 15:31
[2017-05-21] MEDS ORDERED: Cefepime 1gm vial ONE (15:38)
[2017-05-21] MEDS ORDERED: Vancomycin 1gm inj IVPB ONE (15:38)
[2017-05-21 16:00] VITALS: BP 134/74
[2017-05-21 16:07] LABS: BASOPHILS % (AUTO) 1.5 % (0.0-2.0); LYMPHOCYTES % (AUTO) 21.9 % (20.0-45.0); MEAN CORPUSCULAR HEMOGLOBIN 30.5 PG (27.0-31.0); MEAN CORPUSCULAR HGB CONC 35.7 G/DL (32.0-36.0); MEAN CORPUSCULAR VOLUME 85 FL (80-99); MEAN PLATELET VOLUME 5.5 FL (6.5-10.1); MONOCYTES % (AUTO) 7.1 % (1.0-10.0); NEUTROPHILS % (AUTO) 68.5 % (45.0-75.0); PLATELET COUNT 191 K/UL (150-450); RED BLOOD COUNT 4.74 M/UL (4.70-6.10); WHITE BLOOD COUNT 7.4 K/UL (4.8-10.8)
[2017-05-21 16:09] LABS: APPEARANCE,URINE CLEAR; KETONES,URINE NEGATIVE (NEGATIVE); LEUKOCYTE ESTERASE ,URINE NEGATIVE (NEGATIVE); NITRITE,URINE NEGATIVE (NEGATIVE); PH,URINE 6.5 (4.5-8.0); PROTEIN,URINE NEGATIVE (NEGATIVE); UROBILINOGEN,URINE NORMAL MG/DL (0.0-1.0)
[2017-05-21 16:24] LABS: ACETAMINOPHEN < 10 ug/mL (10-30); ALANINE AMINOTRANSFERASE 14 U/L (3-41); ALBUMIN/GLOBULIN RATIO 1.4 (1.0-2.7); ALCOHOL < 10 mg/dL; ANION GAP 13 (5-15); ASPARTATE AMINO TRANSFERASE 20 U/L (5-40); CALCIUM 9.4 mg/dL (8.6-10.2); CARBON DIOXIDE 23 mEQ/L (20-30); CHLORIDE 95 mEQ/L (98-107); CREATININE 0.7 mg/dL (0.7-1.2); GLOMERULAR FILTRATION RATE > 60 mL/min (>60); HEMOLYSIS 44; SODIUM 131 mEQ/L (135-145); TOTAL PROTEIN 7.1 g/dL (6.6-8.7); VALPROIC ACID < 3 ug/mL (50-100)
[2017-05-21 16:30] VITALS: BP 113/68
[2017-05-21] MEDS ORDERED: Valproate Sodium INJ 1,000 MG in D5W 55 ML IV ONE (16:45)
[2017-05-21 20:00] VITALS: BP 130/75
[2017-05-21] MEDS ORDERED: Norco 10mg/325mg tab ORAL PRN (21:30)
[2017-05-21] MEDS ORDERED: Norco 5mg/325mg tab ORAL PRN (21:30)
[2017-05-21] MEDS ORDERED: LORazepam Inj 2mg/ml 1ml IV PRN (21:30)
[2017-05-21] MEDS ORDERED: Albuterol 90mcg Inhaler 8gm INH PRN (23:00)
[2017-05-21] MEDS: Atorvastatin 20mg tab ORAL SCH (23:21)
[2017-05-21] MEDS: levETIRAcetam 500mg/5ml Liquid ORAL SCH (23:22)
[2017-05-21] MEDS: Topiramate 100mg tab ORAL SCH (23:23)
[2017-05-21] MEDS: metroNIDAZOLE 500mg 100 ML IVPB SCH (23:31)
[2017-05-22] VITALS: BP 133/87
[2017-05-22] MEDS: Vancomycin 1250mg/D5W 250ml IVPB SCH ×2 (02:33→15:09)
[2017-05-22 04:00] VITALS: BP 126/79
[2017-05-22] MEDS: Cefepime HCl 1 GM in D5W 55 ML IVPB SCH ×3 (04:55→21:00)
[2017-05-22] MEDS: metroNIDAZOLE 500mg 100 ML IVPB SCH ×3 (06:06→22:08)
[2017-05-22] MEDS: NovoLOG Insulin Flexpen SUBQ SCH ×4 (06:09→21:57)
[2017-05-22 06:11] LABS: BASOPHILS % (AUTO) 1.5 % (0.0-2.0); EOSINOPHILS % (AUTO) 5.7 % (0.0-3.0); LYMPHOCYTES % (AUTO) 29.5 % (20.0-45.0); MEAN CORPUSCULAR HEMOGLOBIN 30.7 PG (27.0-31.0); MEAN CORPUSCULAR HGB CONC 34.7 G/DL (32.0-36.0); MEAN CORPUSCULAR VOLUME 88 FL (80-99); MEAN PLATELET VOLUME 5.2 FL (6.5-10.1); MONOCYTES % (AUTO) 8.2 % (1.0-10.0); NEUTROPHILS % (AUTO) 55.2 % (45.0-75.0); PLATELET COUNT 134 K/UL (150-450); RED BLOOD COUNT 4.57 M/UL (4.70-6.10); RED CELL DISTRIBUTION WIDTH 10.8 % (11.6-14.8); WHITE BLOOD COUNT 4.9 K/UL (4.8-10.8)
[2017-05-22 06:22] LABS: ANION GAP 12 (5-15); CALCIUM 8.8 mg/dL (8.6-10.2); CARBON DIOXIDE 23 mEQ/L (20-30); CHLORIDE 104 mEQ/L (98-107); CREATININE 0.7 mg/dL (0.7-1.2); GLOMERULAR FILTRATION RATE > 60 mL/min (>60); HEMOLYSIS 9; POTASSIUM 3.9 mEQ/L (3.4-4.9); SODIUM 139 mEQ/L (135-145); VALPROIC ACID 17 ug/mL (50-100)
[2017-05-22 08:00] VITALS: BP 132/74
[2017-05-22] MEDS: levETIRAcetam 500mg/5ml Liquid ORAL SCH ×2 (08:11→21:42)
[2017-05-22] MEDS: Topiramate 100mg tab ORAL SCH ×2 (08:12→21:40)
[2017-05-22] MEDS: Bethanechol 10mg Tab ORAL SCH ×3 (08:13→17:30)
[2017-05-22] MEDS: Docusate 100mg cap ORAL SCH ×2 (08:14→17:30)
[2017-05-22] MEDS ORDERED: Heparin 5000 units/ml inj SUBQ SCH (09:00)
[2017-05-22] MEDS ORDERED: Sertraline 50mg tab ORAL SCH (09:00)
[2017-05-22] MEDS ORDERED: Losartan 50mg tab ORAL SCH (09:00)
[2017-05-22] MEDS ORDERED: Depakote 500mg tab ORAL SCH ×2 (09:00→21:00)
[2017-05-22] MEDS: Heparin 5000 units/ml inj SUBQ SCH ×2 (10:00→21:00)
--- NOTE | 2017-05-22 10:54 | Diagnostic Imaging Report ---
Indication: Cough Technique: One view of the chest Comparison: H. 09/07/17 Findings: Better inspiration currently. Interim placement right jugular central venous catheter, tip projecting at level the high right atrium. No gross pneumothorax. Lungs and pleural spaces are clear. The heart size is normal. Impression: No acute process Satisfactory central venous catheter placement. No radiographically evident complication This agrees with the preliminary interpretation provided overnight by [facility] teleradiology service.
[2017-05-22 12:00] VITALS: BP 108/68
[2017-05-22] MEDS ORDERED: Dyna-Hex 2% Top Sol 8oz TOPIC SCH (12:00)
--- NOTE | 2017-05-22 12:38 | Consultation ---
History of Present Illness General Date patient seen: May 22, 2017 Chief Complaint: Seizure Present Illness HPI 46 year old male with hx of chronic seizurew, DM, Developmental delay bought in by paramedics with CC of seizure. The patient received Versed 5 mg IM. He continued to have seizures. . He denies any head trauma at this time. The patient denies any cough, sore throat, nausea, vomiting, diarrhea, dysuria or cough. He was outside. He is admitted to telemetry for uncontrolled seizures. Allergies: Coded Allergies: PHENYTOIN (Verified Allergy, Mild, Rash, 10/18/15) stated patient had a rash reaction to dilantin PENICILLINS (Unverified Allergy, Unknown, 01/29/16) TRAMADOL (Unverified Allergy, Unknown, 09/24/14) Medication History Scheduled Amlodipine Besylate (Norvasc), 2.5 MG ORAL DAILY Atorvastatin Calcium* (Atorvastatin Calcium*), 20 MG ORAL BEDTIME, (Reported) Bethanechol* (Bethanechol*), 10 MG ORAL THREE TIMES A DAY, (Reported) Cholecalciferol (Vitamin D3) (Vitamin D3), 5,000 UNIT PO DAILY, (Reported) Clonazepam* (Klonopin*), 5 MG ORAL QHS, (Reported) Clonazepam* (Klonopin*), Unknown Dose ORAL Q6H, (Reported) Divalproex Sodium (Depakote), 500 MG PO BID, (Reported) Docusate Sodium* (Colace*), 100 MG ORAL BID, (Reported) Levetiracetam (Keppra), 2,000 MG ORAL Q12HR Losartan Potassium* (Losartan Potassium*), 50 MG ORAL DAILY, (Reported) [place]-3 Fatty Acids/Fish Oil* (Fish Oil 1,000 Mg Softgel*), 1 CAP ORAL DAILY, ( Reported) Omeprazole (Prilosec), 40 MG ORAL DAILY, (Reported) Sertraline Hcl* (Zoloft*), 50 MG ORAL DAILY, (Reported) Topiramate (Topamax), 200 MG ORAL Q12HR Valproic Acid (Valproic Acid), 1,250 MG ORAL Q12HR Scheduled PRN Albuterol Sulfate* (Proair Hfa*), 2 PUFFS INH Q6H PRN for Shortness of Breath, ( Reported) Discontinued Medications Topiramate* (Topamax*), Unknown Dose ORAL DAILY, (Reported) Discontinued Reason: Medication dose changed Patient History Healthcare decision maker Resuscitation status Full Code Advanced Directive on File No Past Medical/Surgical History Past Medical/Surgical History: (1) Seizure (2) Noncompliance (3) HTN (hypertension) (4) Major depression Review of Systems All Other Systems: negative except mentioned in HPI Physical Exam General Appearance: WD/WN Lines, tubes and drains: peripheral, central line HEENT: normocephalic Neck: non-tender, limited range of motion Respiratory/Chest: chest wall non-tender, lungs clear Cardiovascular/Chest: normal peripheral pulses Abdomen: normal bowel sounds Genitourinary/Rectal: normal genital exam Extremities: normal range of motion Skin Exam: normal pigmentation 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 Last 24 Hour Vital Signs Date Time Temp Pulse Resp B/P (MAP) Pulse Ox O2 Delivery O2 Flow Rate FiO2 05/22/17 12:00 97.3 68 20 108/68 96 Nasal Cannula 3.0 05/22/17 08:15 126/79 05/22/17 08:00 97.9 84 21 132/74 98 Nasal Cannula 3.0 05/22/17 08:00 90 05/22/17 07:34 78 18 Room Air 05/22/17 04:00 97.5 82 20 126/79 99 Room Air 05/22/17 04:00 74 05/22/17 00:00 97.7 93 19 133/87 96 Room Air 05/22/17 00:00 92 05/21/17 20:00 92 05/21/17 20:00 97.0 97 21 130/75 93 Room Air 05/21/17 17:33 95 05/21/17 17:07 98.4 84 16 113/68 100 Room Air 05/21/17 16:30 98.4 84 16 113/68 100 Room Air 05/21/17 16:00 91 24 134/74 100 Room Air 05/21/17 15:00 87 20 141/79 100 Room Air 05/21/17 14:39 100.8 05/21/17 14:00 100.8 99 28 148/84 99 Room Air 05/21/17 13:33 102.2 101 35 144/81 99 Room Air 05/21/17 13:33 99 18 Room Air 05/21/17 13:25 102.2 99 18 164/83 99 Room Air Laboratory Tests Test 05/21/17 15:25 05/21/17 15:46 05/22/17 05:50 Urine Color Pale yellow Urine Appearance Clear Urine pH 6.5 (4.5-8.0) Urine Specific [place] 1.010 (1.005-1.035) Urine Protein Negative (NEGATIVE) Urine Glucose (UA) Negative (NEGATIVE) Urine Ketones Negative (NEGATIVE) Urine Occult Blood Negative (NEGATIVE) Urine Nitrite Negative (NEGATIVE) Urine Bilirubin Negative (NEGATIVE) Urine Urobilinogen Normal MG/DL (0.0-1.0) Urine Leukocyte Esterase Negative (NEGATIVE) Urine Opiates Screen Negative (NEGATIVE) Urine Barbiturates Screen Negative (NEGATIVE) Phencyclidine (PCP) Screen Negative (NEGATIVE) Urine Amphetamines Screen Negative (NEGATIVE) Urine Benzodiazepines Screen Positive (NEGATIVE) H Urine Cocaine Screen Negative (NEGATIVE) Urine Marijuana (THC) Screen Negative (NEGATIVE) White Blood Count 7.4 K/UL (4.8-10.8) 4.9 K/UL (4.8-10.8) Red Blood Count 4.74 M/UL (4.70-6.10) 4.57 M/UL (4.70-6.10) L Hemoglobin 14.4 G/DL (14.2-18.0) 14.1 G/DL (14.2-18.0) L Hematocrit 40.5 % (42.0-52.0) L 40.5 % (42.0-52.0) L Mean Corpuscular Volume 85 FL (80-99) 88 FL (80-99) Mean Corpuscular Hemoglobin 30.5 PG (27.0-31.0) 30.7 PG (27.0-31.0) Mean Corpuscular Hemoglobin Concent 35.7 G/DL (32.0-36.0) 34.7 G/DL (32.0-36.0) Red Cell Distribution Width 11.0 % (11.6-14.8) L 10.8 % (11.6-14.8) L Platelet Count 191 K/UL (150-450) 134 K/UL (150-450) L Mean Platelet Volume 5.5 FL (6.5-10.1) L 5.2 FL (6.5-10.1) L Neutrophils (%) (Auto) 68.5 % (45.0-75.0) 55.2 % (45.0-75.0) Lymphocytes (%) (Auto) 21.9 % (20.0-45.0) 29.5 % (20.0-45.0) Monocytes (%) (Auto) 7.1 % (1.0-10.0) 8.2 % (1.0-10.0) Eosinophils (%) (Auto) 1.0 % (0.0-3.0) 5.7 % (0.0-3.0) H Basophils (%) (Auto) 1.5 % (0.0-2.0) 1.5 % (0.0-2.0) Sodium Level 131 mEQ/L (135-145) L 139 mEQ/L (135-145) Potassium Level 4.0 mEQ/L (3.4-4.9) 3.9 mEQ/L (3.4-4.9) Chloride Level 95 mEQ/L (98-107) L 104 mEQ/L (98-107) Carbon Dioxide Level 23 mEQ/L (20-30) 23 mEQ/L (20-30) Anion Gap 13 (5-15) 12 (5-15) Blood Urea Nitrogen 6 mg/dL (7-23) L 9 mg/dL (7-23) Creatinine 0.7 mg/dL (0.7-1.2) 0.7 mg/dL (0.7-1.2) Estimat Glomerular Filtration Rate > 60 mL/min (>60) > 60 mL/min (>60) Glucose Level 119 mg/dL (74-106) H 105 mg/dL (74-106) Calcium Level 9.4 mg/dL (8.6-10.2) 8.8 mg/dL (8.6-10.2) Total Bilirubin 0.3 mg/dL (0.0-1.2) Aspartate Amino Transf (AST/SGOT) 20 U/L (5-40) Alanine Aminotransferase (ALT/SGPT) 14 U/L (3-41) Alkaline Phosphatase 76 U/L (40-129) Total Creatine Kinase 250 U/L (38-174) H Total Protein 7.1 g/dL (6.6-8.7) Albumin 4.2 g/dL (3.5-5.2) Globulin 2.9 g/dL Albumin/Globulin Ratio 1.4 (1.0-2.7) Salicylates Level < 1 mg/dL (10-30) L Acetaminophen Level < 10 ug/mL (10-30) L Valproic Acid (Depakene) Level < 3 ug/mL (50-100) L 17 ug/mL (50-100) L Serum Alcohol < 10 mg/dL Height (Feet): 5 Height (Inches): 0.00 Weight (Pounds): 213 Medications Current Medications Medications (Trade) Dose Ordered Sig/Rufus Route PRN Reason Start Time Stop Time Status Last Admin Dose Admin Acetaminophen (Tylenol) 650 mg Q4H PRN ORAL Mild Pain/Temp > 100.5 05/21/17 21:30 06/20/17 21:29 Acetaminophen/ Hydrocodone Bitart ([place] 10/325) 1 ea Q4H PRN ORAL Severe Pain (Pain Scale 7-10) 05/21/17 21:30 05/28/17 21:29 Acetaminophen/ Hydrocodone Bitart ([place] 5/325) 1 tab Q4H PRN ORAL Moderate Pain (Pain Scale 4-6) 05/21/17 21:30 05/28/17 21:29 Albuterol Sulfate (Proventil MDI) 2 puff Q6H PRN INH Shortness of Breath 05/21/17 23:00 06/20/17 22:59 Atorvastatin Calcium (Lipitor) 20 mg BEDTIME ORAL 05/21/17 22:00 06/20/17 21:59 05/21/17 23:21 Bethanechol Chloride (Urecholine) 10 mg THREE TIMES A DAY ORAL 05/22/17 09:00 06/21/17 08:59 05/22/17 12:27 Cefepime HCl 1 gm/ Dextrose 55 ml @ 110 mls/hr EVERY 12 HOURS IVPB 05/22/17 04:00 05/29/17 03:59 05/22/17 04:55 Chlorhexidine Gluconate (Lyudmila-Hex 2%) 1 applic DAILY TOPIC 05/22/17 12:00 06/21/17 11:59 05/22/17 12:27 Clonazepam (KlonoPIN) 1 mg QHS ORAL 05/22/17 21:00 05/29/17 20:59 Dextrose (Dextrose 50%) STAT PRN IV Hypoglycemia 05/21/17 21:30 06/20/17 21:29 Divalproex Sodium (Depakote) 500 mg Q12HR ORAL 05/22/17 09:00 06/21/17 08:59 05/22/17 08:13 Docusate Sodium (Colace) 100 mg BID ORAL 05/22/17 09:00 06/21/17 08:59 05/22/17 08:14 Fish Oil (Fish Oil) 1,000 mg DAILY ORAL 05/22/17 09:00 06/21/17 08:59 05/22/17 08:14 Heparin Sodium (Porcine) (Heparin 5000 units/ml) 5,000 units EVERY 12 HOURS SUBQ 05/22/17 10:00 06/21/17 09:59 05/22/17 10:00 Insulin Aspart (NovoLOG) BEFORE MEALS AND HS SUBQ 05/22/17 06:30 06/21/17 06:29 Levetiracetam (Keppra) 2,000 mg Q12HR ORAL 05/21/17 23:00 06/20/17 22:59 05/22/17 08:11 Lorazepam (Ativan 2mg/ml 1ml) 2 mg Q2H PRN IV For Seizures 05/21/17 21:30 05/28/17 21:29 Losartan Potassium (Cozaar) 50 mg DAILY ORAL 05/22/17 09:00 06/21/17 08:59 05/22/17 08:15 Metronidazole 100 ml @ 100 mls/hr Q8HR IVPB 05/21/17 23:00 05/28/17 22:59 05/22/17 06:06 Ondansetron HCl (Zofran) 4 mg Q4H PRN IVP Nausea & Vomiting 05/21/17 21:30 06/20/17 21:29 Sertraline HCl (Zoloft) 50 mg DAILY ORAL 05/22/17 09:00 06/21/17 08:59 05/22/17 08:13 Sodium Chloride 1,000 ml @ 75 mls/hr [id number] IVLG 05/21/17 22:30 06/20/17 22:29 05/22/17 12:30 Topiramate (Topamax) 200 mg Q12HR ORAL 05/21/17 23:00 06/20/17 22:59 05/22/17 08:12 Vancomycin HCl (Vanco rx to dose) 1 ea DAILY PRN MISC Per rx protocol 05/21/17 21:30 06/20/17 21:29 Vancomycin HCl/ Dextrose 250 ml @ 166.667 mls/hr Q12HR@0200,1400 IVPB 05/22/17 02:00 05/27/17 01:59 05/22/17 02:33 Assessment/Plan Problem List: (1) Seizure (2) HTN (hypertension) ICD Codes: I10 - HTN (hypertension) SNOMED: 61135634 (3) Major depression ICD Codes: F32.9 - Major depressive disorder, single episode, unspecified SNOMED: 13959671, 445426340 Assessment/Plan Neuro evaluation seizure precaution monitor BP sliding scale diabetic diet. ELSA CEJA May 22, 2017 12:38
--- NOTE | 2017-05-22 13:25 | History & Physical ---
History and Physical History & Physicial Dictated Int Med no. [id number]. EUGENIO OROZCO May 22, 2017 13:25
[2017-05-22] MEDS ORDERED: Tubing IV Secondary IV ONE (15:45)
[2017-05-22 16:00] VITALS: BP 122/69
[2017-05-22 20:05] VITALS: BP 127/73
[2017-05-22] MEDS: Atorvastatin 20mg tab ORAL SCH (21:41)
--- NOTE | 2017-05-22 22:30 | History and Physical Report ---
DATE OF ADMISSION: 05/21/2017 CHIEF COMPLAINT: The patient is a 46-year-old male, who presents with a chief complaint of witnessed seizure. HISTORY OF PRESENT ILLNESS: The patient has a history of seizure disorder. The patient was last admitted to [facility] in December of 2016. Please see history and physical and discharge summary dictated at that time. The patient states he was walking in the street yesterday, 05/21/2017. The patient had a seizure. This was witnessed by bystanders. EMS was called. The patient received Versed in the field. The patient was transported to [facility]. The patient was admitted for a breakthrough seizure disorder. PAST MEDICAL HISTORY: Significant for, 1. Seizure disorder. 2. Hypertension. 3. Hypercholesterolemia. PAST SURGICAL HISTORY: Significant for nasal septoplasty. CURRENT MEDICATIONS: 1. Albuterol metered-dosed inhaler two puffs p.o. q.i.d. p.r.n. 2. Norvasc 2.5 mg one tablet p.o. daily. 3. Atorvastatin 20 mg one tablet p.o. at bedtime. 4. Bethanechol 10 mg one tablet p.o. three times daily. 5. Vitamin D 5000 units daily. 6. Klonopin 1 mg p.o. at bedtime. 7. Depakote 500 mg one tablet p.o. twice daily. 8. Keppra 2000 mg p.o. twice daily. 9. Losartan 50 mg one tablet p.o. daily. 10. [place]-3 fatty acids 1 g p.o. daily. 11. Prilosec 20 mg one tablet p.o. daily. 12. Zoloft 25 mg two tablets p.o. daily. 13. Topamax 200 mg one tablet p.o. twice daily. ALLERGIES: 1. Dilantin. 2. Penicillin. 3. Tramadol. SOCIAL HISTORY: The patient is single and is disabled. The patient lives with a girlfriend. The patient denies tobacco use. The patient admits to previous alcohol use, however, states he quit drinking alcohol six months ago. REVIEW OF SYSTEMS: Constitutional: The patient denies weight loss or weight gain. The patient denies fevers or chills. HEENT: The patient denies ear or throat pain. The patient denies headache. Cardiovascular: The patient denies palpitations or chest pain. Chest: The patient denies wheeze or shortness of breath. Abdomen: The patient denies nausea, vomiting, diarrhea, or constipation. Genitourinary: The patient denies history of increased frequency of urination. Neuromuscular: The patient has history of seizure disorder as above. The patient denies generalized weakness. PHYSICAL EXAMINATION: VITAL SIGNS: Temperature 97.7 degrees, respirations 19, pulse 74 to 92, blood pressure 126 to 133 over 70 to 87 GENERAL: The patient is a well-developed and well-nourished obese male, in no apparent distress. HEENT: Eyes, pupils are equal and responsive to light and accommodation. Extraocular movements are intact. NECK: Supple without lymphadenopathy. CHEST: Lungs are clear to auscultation bilaterally without wheezes or rales. CARDIOVASCULAR: Regular rate. S1 and S2 are normal without murmurs, rubs, or gallops. ABDOMEN: Soft, nontender, and nondistended. Positive bowel sounds. No evidence of hepatosplenomegaly. Currently, no rebound or guarding noted. EXTREMITIES: Negative for clubbing, cyanosis, or edema. RECTAL/GENITAL: Refused. NEUROLOGIC: Cranial nerves II to XII are grossly intact without focal deficits. Motor strength is 5/5 bilaterally. Deep tendon reflexes are 2+ plantar. LABORATORY STUDIES: WBC 7.4, hemoglobin 14.4, hematocrit 40.5, and platelets 191,000. Sodium 131, potassium 4.0, chloride 95, CO2 23, BUN 6, creatinine 0.7, and glucose 119. ASSESSMENT: This is a 46-year-old male. 1. History of seizure disorder. 2. Hypertension. 3. Hypercholesteremia. 4. Depression. TREATMENT: 1. Seizure disorder. The patient has been started on Keppra and Depakote as above. A Neurology consultation was obtained with Dr. Martínez. We will follow recommendations of Neurology. Ativan will be used intravenously p.r.n. for breakthrough seizures. 2. Hypertension. Continue losartan and Norvasc as above. 3. Hypercholesteremia. Continue atorvastatin as above. 4. Depression. Continue Zoloft as above. Jimmie Lang M.D. DR: COLT JOB#: [id number] CC:
[2017-05-22] MEDS ORDERED: Albuterol 90mcg Inhaler 8gm INH PRN (23:00)
[2017-05-22] MEDS ORDERED: LORazepam Inj 2mg/ml 1ml IV PRN (23:30)
[2017-05-23] VITALS: BP 122/71
[2017-05-23] MEDS: Vancomycin 1250mg/D5W 250ml 250 ML IVPB SCH ×2 (01:13→15:20)
[2017-05-23] MEDS ORDERED: Norco 10mg/325mg tab ORAL PRN (01:30)
[2017-05-23] MEDS ORDERED: Norco 5mg/325mg tab ORAL PRN (01:30)
[2017-05-23 04:00] VITALS: BP_SYST 119; BP_SYST 121; BP_DIAS 73; BP_DIAS 76
[2017-05-23] MEDS: metroNIDAZOLE 500mg 100 ML IVPB SCH ×3 (05:47→21:21)
[2017-05-23] MEDS: NovoLOG Insulin Flexpen SUBQ SCH ×4 (06:05→20:37)
[2017-05-23 06:55] LABS: BASOPHILS % (AUTO) 1.5 % (0.0-2.0); EOSINOPHILS % (AUTO) 6.8 % (0.0-3.0); LYMPHOCYTES % (AUTO) 29.3 % (20.0-45.0); MEAN CORPUSCULAR HEMOGLOBIN 30.2 PG (27.0-31.0); MEAN CORPUSCULAR HGB CONC 33.8 G/DL (32.0-36.0); MEAN CORPUSCULAR VOLUME 89 FL (80-99); MEAN PLATELET VOLUME 5.8 FL (6.5-10.1); MONOCYTES % (AUTO) 6.5 % (1.0-10.0); NEUTROPHILS % (AUTO) 55.8 % (45.0-75.0); PLATELET COUNT 167 K/UL (150-450); RED BLOOD COUNT 4.42 M/UL (4.70-6.10); RED CELL DISTRIBUTION WIDTH 11.3 % (11.6-14.8); WHITE BLOOD COUNT 5.3 K/UL (4.8-10.8)
[2017-05-23 07:16] LABS: ANION GAP 13 (5-15); CALCIUM 9.2 mg/dL (8.6-10.2); CARBON DIOXIDE 21 mEQ/L (20-30); CHLORIDE 106 mEQ/L (98-107); CREATININE 0.8 mg/dL (0.7-1.2); GLOMERULAR FILTRATION RATE > 60 mL/min (>60); HEMOLYSIS 7; SODIUM 140 mEQ/L (135-145); VALPROIC ACID 23 ug/mL (50-100)
[2017-05-23 08:47] VITALS: BP 118/79
[2017-05-23] MEDS: Cefepime HCl 1 GM in D5W 55 ML IVPB SCH ×2 (10:11→20:19)
[2017-05-23] MEDS: Sertraline 50mg tab ORAL SCH (10:24)
[2017-05-23] MEDS: Topiramate 100mg tab ORAL SCH ×2 (10:24→20:24)
[2017-05-23] MEDS: Depakote 500mg tab ORAL SCH ×2 (10:24→20:23)
[2017-05-23] MEDS: Losartan 50mg tab ORAL SCH (10:25)
[2017-05-23] MEDS: Bethanechol 10mg Tab ORAL SCH ×3 (10:25→16:46)
[2017-05-23] MEDS: Docusate 100mg cap ORAL SCH ×2 (10:26→16:46)
[2017-05-23] MEDS: Dyna-Hex 2% Top Sol 8oz TOPIC SCH (10:26)
[2017-05-23] MEDS: Heparin 5000 units/ml inj SUBQ SCH ×2 (10:27→20:26)
[2017-05-23] MEDS: levETIRAcetam 500mg/5ml Liquid ORAL SCH ×2 (10:54→21:21)
[2017-05-23 12:15] VITALS: BP 105/67
--- NOTE | 2017-05-23 13:15 | Internal Med Progress Note ---
Subjective Date of Service: May 23, 2017 Physician Name Jimmie Orozco Attending Physician Jimmie Orozco Current Medications Medications (Trade) Dose Ordered Sig/Rufus Route PRN Reason Start Time Stop Time Status Last Admin Dose Admin Acetaminophen (Tylenol) 650 mg Q4H PRN ORAL Mild Pain/Temp > 100.5 05/23/17 01:30 06/20/17 21:29 Acetaminophen/ Hydrocodone Bitart ([place] 10/325) 1 ea Q4H PRN ORAL Severe Pain (Pain Scale 7-10) 05/23/17 01:30 05/28/17 21:29 Acetaminophen/ Hydrocodone Bitart ([place] 5/325) 1 tab Q4H PRN ORAL Moderate Pain (Pain Scale 4-6) 05/23/17 01:30 05/28/17 21:29 Albuterol Sulfate (Proventil MDI) 2 puff Q6H PRN INH Shortness of Breath 05/22/17 23:00 06/20/17 22:59 Atorvastatin Calcium (Lipitor) 20 mg BEDTIME ORAL 05/23/17 21:00 06/20/17 21:59 Bethanechol Chloride (Urecholine) 10 mg THREE TIMES A DAY ORAL 05/23/17 09:00 06/21/17 08:59 05/23/17 12:06 Cefepime HCl 1 gm/ Dextrose 55 ml @ 110 mls/hr EVERY 12 HOURS IVPB 05/23/17 09:00 05/29/17 03:59 05/23/17 10:11 Chlorhexidine Gluconate (Lyudmila-Hex 2%) 1 applic DAILY TOPIC 05/23/17 09:00 06/21/17 11:59 05/23/17 10:26 Clonazepam (KlonoPIN) 1 mg QHS ORAL 05/23/17 21:00 05/29/17 20:59 Dextrose (Dextrose 50%) STAT PRN IV Hypoglycemia 05/23/17 21:30 06/20/17 21:29 Divalproex Sodium (Depakote) 1,000 mg Q12HR ORAL 05/23/17 09:00 06/21/17 20:59 05/23/17 10:24 Docusate Sodium (Colace) 100 mg BID ORAL 05/23/17 09:00 06/21/17 08:59 05/23/17 10:26 Fish Oil (Fish Oil) 1,000 mg DAILY ORAL 05/23/17 09:00 06/21/17 08:59 05/23/17 10:25 Heparin Sodium (Porcine) (Heparin 5000 units/ml) 5,000 units EVERY 12 HOURS SUBQ 05/23/17 09:00 06/21/17 09:59 05/23/17 10:27 Insulin Aspart (NovoLOG) BEFORE MEALS AND HS SUBQ 05/23/17 06:30 06/21/17 06:29 Levetiracetam (Keppra) 2,000 mg Q12HR ORAL 05/23/17 09:00 06/20/17 22:59 05/23/17 10:54 Lorazepam (Ativan 2mg/ml 1ml) 2 mg Q2H PRN IV For Seizures 05/22/17 23:30 05/28/17 21:29 Losartan Potassium (Cozaar) 50 mg DAILY ORAL 05/23/17 09:00 06/21/17 08:59 05/23/17 10:25 Metronidazole 100 ml @ 100 mls/hr Q8HR IVPB 05/23/17 06:00 05/28/17 22:59 05/23/17 05:47 Ondansetron HCl (Zofran) 4 mg Q4H PRN IVP Nausea & Vomiting 05/23/17 01:30 06/20/17 21:29 Sertraline HCl (Zoloft) 50 mg DAILY ORAL 05/23/17 09:00 06/21/17 08:59 05/23/17 10:24 Sodium Chloride 1,000 ml @ 75 mls/hr [id number] IVLG 05/22/17 23:00 06/20/17 22:29 05/23/17 01:00 Topiramate (Topamax) 200 mg Q12HR ORAL 05/23/17 09:00 06/20/17 22:59 05/23/17 10:24 Vancomycin HCl (Vanco rx to dose) 1 ea DAILY PRN MISC Per rx protocol 05/23/17 09:00 06/20/17 21:29 Vancomycin HCl/ Dextrose 250 ml @ 166.667 mls/hr Q12HR@0200,1400 IVPB 05/23/17 02:00 05/27/17 01:59 05/23/17 01:13 Allergies: Coded Allergies: PHENYTOIN (Verified Allergy, Mild, Rash, 10/18/15) stated patient had a rash reaction to dilantin PENICILLINS (Unverified Allergy, Unknown, 01/29/16) TRAMADOL (Unverified Allergy, Unknown, 09/24/14) ROS Limited/Unobtainable: No Constitutional: Reports: no symptoms HEENT: Reports: no symptoms Cardiovascular: Reports: no symptoms Respiratory: Reports: no symptoms Gastrointestinal/Abdominal: Reports: no symptoms Genitourinary: Reports: no symptoms Neurologic/Psychiatric: Reports: no symptoms Subjective 46 YO M admitted with seizure. No new seizure overnight. Await neurology consult. Objective Last Vital Signs Date Time Temp Pulse Resp B/P (MAP) Pulse Ox O2 Delivery O2 Flow Rate FiO2 05/23/17 12:15 97.8 64 20 105/67 96 Room Air 05/23/17 07:47 21 05/23/17 04:00 2.0 General Appearance: WD/WN, no apparent distress, alert, mild distress EENT: PERRL/EOMI, normal ENT inspection, TMs normal Neck: non-tender, normal alignment, supple, normal inspection Cardiovascular: normal peripheral pulses, normal rate, regular rhythm, no gallop/murmur, no JVD Respiratory/Chest: chest wall non-tender, lungs clear, normal breath sounds, no respiratory distress, no accessory muscle use Abdomen: normal bowel sounds, non tender, soft, no organomegaly, no mass Extremities: normal range of motion Edema: trace edema 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, no motor/sensory deficits Laboratory Tests Test 05/23/17 04:30 White Blood Count 5.3 K/UL (4.8-10.8) Red Blood Count 4.42 M/UL (4.70-6.10) L Hemoglobin 13.4 G/DL (14.2-18.0) L Hematocrit 39.6 % (42.0-52.0) L Mean Corpuscular Volume 89 FL (80-99) Mean Corpuscular Hemoglobin 30.2 PG (27.0-31.0) Mean Corpuscular Hemoglobin Concent 33.8 G/DL (32.0-36.0) Red Cell Distribution Width 11.3 % (11.6-14.8) L Platelet Count 167 K/UL (150-450) Mean Platelet Volume 5.8 FL (6.5-10.1) L Neutrophils (%) (Auto) 55.8 % (45.0-75.0) Lymphocytes (%) (Auto) 29.3 % (20.0-45.0) Monocytes (%) (Auto) 6.5 % (1.0-10.0) Eosinophils (%) (Auto) 6.8 % (0.0-3.0) H Basophils (%) (Auto) 1.5 % (0.0-2.0) Sodium Level 140 mEQ/L (135-145) Potassium Level 4.0 mEQ/L (3.4-4.9) Chloride Level 106 mEQ/L (98-107) Carbon Dioxide Level 21 mEQ/L (20-30) Anion Gap 13 (5-15) Blood Urea Nitrogen 13 mg/dL (7-23) Creatinine 0.8 mg/dL (0.7-1.2) Estimat Glomerular Filtration Rate > 60 mL/min (>60) Glucose Level 97 mg/dL (74-106) Calcium Level 9.2 mg/dL (8.6-10.2) Valproic Acid (Depakene) Level 23 ug/mL (50-100) L Microbiology Date/Time Source Procedure Growth Status 05/21/17 15:25 Blood Blood Culture - Preliminary NO GROWTH AFTER 24 HOURS Resulted 05/21/17 15:20 Blood Blood Culture - Preliminary NO GROWTH AFTER 24 HOURS Resulted Intake and Output 05/23/17 05/24/17 19:00 07:00 Intake Total 805 ml Output Total 500 ml Balance 305 ml Intake Oral 450 ml IV Total 355 ml Output Urine Total 500 ml Assessment/Plan Problem List: (1) Seizure disorder Assessment & Plan: Await EEG. Await Neurology consult. Continue depakote and keppra for now. (2) Hypercholesteremia Assessment & Plan: Cont lipitor (3) HTN (hypertension) Assessment & Plan: Continue cozaar and norvasc (4) Seizure Assessment & Plan: See above. (5) Depression (6) Fever Assessment & Plan: Continue flagyl, vanco and cefepime. Await cultrue results. Status: unchanged JIMMIE OROZCO May 23, 2017 13:15
[2017-05-23 15:46] VITALS: BP 97/70
[2017-05-23] MEDS ORDERED: Tubing IV Secondary IV ONE ×2 (15:57→19:57)
[2017-05-23] MEDS ORDERED: NS 275ml ONE (19:57)
[2017-05-23 20:02] VITALS: BP 108/73
[2017-05-23] MEDS: Atorvastatin 20mg tab ORAL SCH (20:23)
[2017-05-24 00:11] VITALS: BP 115/67
[2017-05-24] MEDS: Vancomycin 1250mg/D5W 250ml 250 ML IVPB SCH ×2 (02:05→13:15)
[2017-05-24 04:00] VITALS: BP 130/77
[2017-05-24] MEDS: metroNIDAZOLE 500mg 100 ML IVPB SCH (05:12)
[2017-05-24] MEDS: NovoLOG Insulin Flexpen SUBQ SCH ×4 (05:41→20:11)
[2017-05-24 06:57] LABS: BASOPHILS % (AUTO) 1.1 % (0.0-2.0); EOSINOPHILS % (AUTO) 8.3 % (0.0-3.0); LYMPHOCYTES % (AUTO) 37.3 % (20.0-45.0); MEAN CORPUSCULAR HEMOGLOBIN 30.2 PG (27.0-31.0); MEAN CORPUSCULAR HGB CONC 34.2 G/DL (32.0-36.0); MEAN CORPUSCULAR VOLUME 88 FL (80-99); MEAN PLATELET VOLUME 5.7 FL (6.5-10.1); MONOCYTES % (AUTO) 5.8 % (1.0-10.0); NEUTROPHILS % (AUTO) 47.5 % (45.0-75.0); PLATELET COUNT 163 K/UL (150-450); RED CELL DISTRIBUTION WIDTH 11.1 % (11.6-14.8); WHITE BLOOD COUNT 5.2 K/UL (4.8-10.8)
[2017-05-24 07:07] LABS: ANION GAP 11 (5-15); CALCIUM 9.3 mg/dL (8.6-10.2); CARBON DIOXIDE 22 mEQ/L (20-30); CHLORIDE 107 mEQ/L (98-107); CREATININE 0.9 mg/dL (0.7-1.2); GLOMERULAR FILTRATION RATE > 60 mL/min (>60); HEMOLYSIS 5; POTASSIUM 4.3 mEQ/L (3.4-4.9); SODIUM 140 mEQ/L (135-145); VALPROIC ACID 90 ug/mL (50-100)
[2017-05-24 07:56] VITALS: BP 105/65
[2017-05-24] MEDS: Cefepime HCl 1 GM in D5W 55 ML IVPB SCH ×2 (08:18→20:12)
[2017-05-24] MEDS: Topiramate 100mg tab ORAL SCH ×2 (08:18→20:11)
[2017-05-24] MEDS: Docusate 100mg cap ORAL SCH ×2 (08:18→18:20)
[2017-05-24] MEDS: Sertraline 50mg tab ORAL SCH (08:18)
[2017-05-24] MEDS: Depakote 500mg tab ORAL SCH ×2 (08:19→20:11)
[2017-05-24] MEDS: Losartan 50mg tab ORAL SCH (08:19)
[2017-05-24] MEDS: levETIRAcetam 500mg/5ml Liquid ORAL SCH ×2 (08:19→20:10)
[2017-05-24] MEDS: Bethanechol 10mg Tab ORAL SCH ×3 (08:19→18:20)
[2017-05-24] MEDS: Dyna-Hex 2% Top Sol 8oz TOPIC SCH (08:19)
[2017-05-24] MEDS: Heparin 5000 units/ml inj SUBQ SCH ×2 (08:20→20:23)
[2017-05-24 11:59] VITALS: BP 109/67
[2017-05-24] MEDS: metroNIDAZOLE 500mg tab ORAL SCH ×2 (13:15→22:13)
--- NOTE | 2017-05-24 14:40 | Internal Med Progress Note ---
Subjective Date of Service: May 24, 2017 Physician Name Jimmie Orozco Attending Physician Jimmie Orozco Current Medications Medications (Trade) Dose Ordered Sig/Rufus Route PRN Reason Start Time Stop Time Status Last Admin Dose Admin Acetaminophen (Tylenol) 650 mg Q4H PRN ORAL Mild Pain/Temp > 100.5 05/23/17 01:30 06/20/17 21:29 Acetaminophen/ Hydrocodone Bitart ([place] 10/325) 1 ea Q4H PRN ORAL Severe Pain (Pain Scale 7-10) 05/23/17 01:30 05/28/17 21:29 Acetaminophen/ Hydrocodone Bitart ([place] 5/325) 1 tab Q4H PRN ORAL Moderate Pain (Pain Scale 4-6) 05/23/17 01:30 05/28/17 21:29 Albuterol Sulfate (Proventil MDI) 2 puff Q6H PRN INH Shortness of Breath 05/22/17 23:00 06/20/17 22:59 Atorvastatin Calcium (Lipitor) 20 mg BEDTIME ORAL 05/23/17 21:00 06/20/17 21:59 05/23/17 20:23 Bethanechol Chloride (Urecholine) 10 mg THREE TIMES A DAY ORAL 05/23/17 09:00 06/21/17 08:59 05/24/17 13:15 Cefepime HCl 1 gm/ Dextrose 55 ml @ 110 mls/hr EVERY 12 HOURS IVPB 05/23/17 09:00 05/29/17 03:59 05/24/17 08:18 Chlorhexidine Gluconate (Lyudmila-Hex 2%) 1 applic DAILY TOPIC 05/23/17 09:00 06/21/17 11:59 05/24/17 08:19 Clonazepam (KlonoPIN) 1 mg QHS ORAL 05/23/17 21:00 05/29/17 20:59 05/23/17 20:22 Dextrose (Dextrose 50%) STAT PRN IV Hypoglycemia 05/23/17 21:30 06/20/17 21:29 Divalproex Sodium (Depakote) 1,000 mg Q12HR ORAL 05/23/17 09:00 06/21/17 20:59 05/24/17 08:19 Docusate Sodium (Colace) 100 mg BID ORAL 05/23/17 09:00 06/21/17 08:59 05/24/17 08:18 Fish Oil (Fish Oil) 1,000 mg DAILY ORAL 05/23/17 09:00 06/21/17 08:59 05/24/17 08:18 Heparin Sodium (Porcine) (Heparin 5000 units/ml) 5,000 units EVERY 12 HOURS SUBQ 05/23/17 09:00 06/21/17 09:59 05/24/17 08:20 Insulin Aspart (NovoLOG) BEFORE MEALS AND HS SUBQ 05/23/17 06:30 06/21/17 06:29 05/23/17 16:46 Levetiracetam (Keppra) 2,000 mg Q12HR ORAL 05/23/17 09:00 06/20/17 22:59 05/24/17 08:19 Lorazepam (Ativan 2mg/ml 1ml) 2 mg Q2H PRN IV For Seizures 05/22/17 23:30 05/28/17 21:29 Losartan Potassium (Cozaar) 50 mg DAILY ORAL 05/23/17 09:00 06/21/17 08:59 05/23/17 10:25 Metronidazole (Flagyl) 500 mg Q8HR ORAL 05/24/17 14:00 05/31/17 13:59 05/24/17 13:15 Ondansetron HCl (Zofran) 4 mg Q4H PRN IVP Nausea & Vomiting 05/23/17 01:30 06/20/17 21:29 Sertraline HCl (Zoloft) 50 mg DAILY ORAL 05/23/17 09:00 06/21/17 08:59 05/24/17 08:18 Sodium Chloride 1,000 ml @ 75 mls/hr [id number] IVLG 05/22/17 23:00 06/20/17 22:29 05/24/17 05:17 Topiramate (Topamax) 200 mg Q12HR ORAL 05/23/17 09:00 06/20/17 22:59 05/24/17 08:18 Vancomycin HCl (Vanco rx to dose) 1 ea DAILY PRN MISC Per rx protocol 05/23/17 09:00 06/20/17 21:29 Vancomycin HCl/ Dextrose 250 ml @ 166.667 mls/hr Q12HR@0200,1400 IVPB 05/23/17 02:00 05/27/17 01:59 05/24/17 13:15 Allergies: Coded Allergies: PHENYTOIN (Verified Allergy, Mild, Rash, 10/18/15) stated patient had a rash reaction to dilantin PENICILLINS (Unverified Allergy, Unknown, 01/29/16) TRAMADOL (Unverified Allergy, Unknown, 09/24/14) ROS Limited/Unobtainable: No Constitutional: Reports: no symptoms HEENT: Reports: no symptoms Cardiovascular: Reports: no symptoms Respiratory: Reports: no symptoms Gastrointestinal/Abdominal: Reports: no symptoms Genitourinary: Reports: no symptoms Neurologic/Psychiatric: Reports: no symptoms Subjective 46 YO M admitted with seizure. No new seizure overnight. Await neurology consult. Await EEG Objective Last Vital Signs Date Time Temp Pulse Resp B/P (MAP) Pulse Ox O2 Delivery O2 Flow Rate FiO2 05/24/17 11:59 98.1 88 20 109/67 97 Room Air 05/24/17 07:56 21 05/23/17 04:00 2.0 Laboratory Tests Test 05/24/17 05:00 White Blood Count 5.2 K/UL (4.8-10.8) Red Blood Count 4.50 M/UL (4.70-6.10) L Hemoglobin 13.6 G/DL (14.2-18.0) L Hematocrit 39.7 % (42.0-52.0) L Mean Corpuscular Volume 88 FL (80-99) Mean Corpuscular Hemoglobin 30.2 PG (27.0-31.0) Mean Corpuscular Hemoglobin Concent 34.2 G/DL (32.0-36.0) Red Cell Distribution Width 11.1 % (11.6-14.8) L Platelet Count 163 K/UL (150-450) Mean Platelet Volume 5.7 FL (6.5-10.1) L Neutrophils (%) (Auto) 47.5 % (45.0-75.0) Lymphocytes (%) (Auto) 37.3 % (20.0-45.0) Monocytes (%) (Auto) 5.8 % (1.0-10.0) Eosinophils (%) (Auto) 8.3 % (0.0-3.0) H Basophils (%) (Auto) 1.1 % (0.0-2.0) Sodium Level 140 mEQ/L (135-145) Potassium Level 4.3 mEQ/L (3.4-4.9) Chloride Level 107 mEQ/L (98-107) Carbon Dioxide Level 22 mEQ/L (20-30) Anion Gap 11 (5-15) Blood Urea Nitrogen 13 mg/dL (7-23) Creatinine 0.9 mg/dL (0.7-1.2) Estimat Glomerular Filtration Rate > 60 mL/min (>60) Glucose Level 101 mg/dL (74-106) Calcium Level 9.3 mg/dL (8.6-10.2) Valproic Acid (Depakene) Level 90 ug/mL (50-100) Microbiology Date/Time Source Procedure Growth Status 05/21/17 15:25 Blood Blood Culture - Preliminary NO GROWTH AFTER 48 HOURS Resulted 05/21/17 15:20 Blood Blood Culture - Preliminary NO GROWTH AFTER 48 HOURS Resulted Intake and Output 05/24/17 05/25/17 19:00 07:00 Intake Total 755 ml Balance 755 ml Intake Oral 755 ml # Voids 2 # Bowel Movements 3 Objective General Appearance: WD/WN, no apparent distress, alert, mild distress EENT: PERRL/EOMI, normal ENT inspection, TMs normal Neck: non-tender, normal alignment, supple, normal inspection Cardiovascular: normal peripheral pulses, normal rate, regular rhythm, no gallop/murmur, no JVD Respiratory/Chest: chest wall non-tender, lungs clear, normal breath sounds, no respiratory distress, no accessory muscle use Abdomen: normal bowel sounds, non tender, soft, no organomegaly, no mass Extremities: normal range of motion Edema: trace edema 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 Await Neurology consult. Continue depakote and keppra for now. (2) Hypercholesteremia Assessment & Plan: Cont lipitor (3) HTN (hypertension) Assessment & Plan: Continue cozaar and norvasc (4) Seizure Assessment & Plan: See above. (5) Depression (6) Fever Assessment & Plan: Continue flagyl, vanco and cefepime. Await cultrue results. Status: progressing JIMMIE OROZCO May 24, 2017 14:40
--- NOTE | 2017-05-24 15:24 | Pulmonology Progress Note ---
Assessment/Plan Problems: (1) Seizure (2) HTN (hypertension) (3) Major depression Assessment/Plan improving awaiting neuro evaluation all notes and meds reviewed dc planning Subjective ROS Limited/Unobtainable: No Constitutional: Reports: no symptoms HEENT: Repors: no symptoms Respiratory: Reports: no symptoms Allergies: Coded Allergies: PHENYTOIN (Verified Allergy, Mild, Rash, 10/18/15) stated patient had a rash reaction to dilantin PENICILLINS (Unverified Allergy, Unknown, 01/29/16) TRAMADOL (Unverified Allergy, Unknown, 09/24/14) Objective Last 24 Hour Vital Signs Date Time Temp Pulse Resp B/P (MAP) Pulse Ox O2 Delivery O2 Flow Rate FiO2 05/24/17 11:59 98.1 88 20 109/67 97 Room Air 05/24/17 08:19 105/65 05/24/17 07:56 97.5 82 20 105/65 95 Room Air 05/24/17 07:56 85 18 Room Air 21 05/24/17 04:00 97.3 77 20 130/77 94 Room Air 05/24/17 00:11 97.1 64 20 115/67 96 Room Air 05/23/17 20:02 96.9 75 21 108/73 96 Room Air 05/23/17 19:08 81 18 Room Air 21 05/23/17 15:46 97.9 72 19 97/70 96 Room Air Intake and Output 05/24/17 05/25/17 19:00 07:00 Intake Total 755 ml Balance 755 ml Intake Oral 755 ml # Voids 2 # Bowel Movements 3 General Appearance: WD/WN HEENT: normocephalic, atraumatic Respiratory/Chest: chest wall non-tender, lungs clear Cardiovascular: normal peripheral pulses, normal rate Abdomen: normal bowel sounds, soft, non tender Genitourinary: normal external genitalia Extremities: no cyanosis Skin: no ulcers 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 Microbiology Date/Time Source Procedure Growth Status 05/21/17 15:25 Blood Blood Culture - Preliminary NO GROWTH AFTER 48 HOURS Resulted Laboratory Tests 05/24/17 05:00: White Blood Count 5.2, Red Blood Count 4.50L, Hemoglobin 13.6L, Hematocrit 39.7L , Mean Corpuscular Volume 88, Mean Corpuscular Hemoglobin 30.2, Mean Corpuscular Hemoglobin Concent 34.2, Red Cell Distribution Width 11.1L, Platelet Count 163, Mean Platelet Volume 5.7L, Neutrophils (%) (Auto) 47.5, Lymphocytes (%) (Auto) 37.3, Monocytes (%) (Auto) 5.8, Eosinophils (%) (Auto) 8.3H, Basophils (%) (Auto) 1.1, Sodium Level 140, Potassium Level 4.3, Chloride Level 107, Carbon Dioxide Level 22, Anion Gap 11, Blood Urea Nitrogen 13, Creatinine 0.9, Estimat Glomerular Filtration Rate > 60, Glucose Level 101, Calcium Level 9.3, Valproic Acid (Depakene) Level 90 Current Medications Medications (Trade) Dose Ordered Sig/Rufus Route PRN Reason Start Time Stop Time Status Last Admin Dose Admin Acetaminophen (Tylenol) 650 mg Q4H PRN ORAL Mild Pain/Temp > 100.5 05/23/17 01:30 06/20/17 21:29 Acetaminophen/ Hydrocodone Bitart ([place] 10/325) 1 ea Q4H PRN ORAL Severe Pain (Pain Scale 7-10) 05/23/17 01:30 05/28/17 21:29 Acetaminophen/ Hydrocodone Bitart ([place] 5/325) 1 tab Q4H PRN ORAL Moderate Pain (Pain Scale 4-6) 05/23/17 01:30 05/28/17 21:29 Albuterol Sulfate (Proventil MDI) 2 puff Q6H PRN INH Shortness of Breath 05/22/17 23:00 06/20/17 22:59 Atorvastatin Calcium (Lipitor) 20 mg BEDTIME ORAL 05/23/17 21:00 06/20/17 21:59 05/23/17 20:23 Bethanechol Chloride (Urecholine) 10 mg THREE TIMES A DAY ORAL 05/23/17 09:00 06/21/17 08:59 05/24/17 13:15 Cefepime HCl 1 gm/ Dextrose 55 ml @ 110 mls/hr EVERY 12 HOURS IVPB 05/23/17 09:00 05/29/17 03:59 05/24/17 08:18 Chlorhexidine Gluconate (Lyudmila-Hex 2%) 1 applic DAILY TOPIC 05/23/17 09:00 06/21/17 11:59 05/24/17 08:19 Clonazepam (KlonoPIN) 1 mg QHS ORAL 05/23/17 21:00 05/29/17 20:59 05/23/17 20:22 Dextrose (Dextrose 50%) STAT PRN IV Hypoglycemia 05/23/17 21:30 06/20/17 21:29 Divalproex Sodium (Depakote) 1,000 mg Q12HR ORAL 05/23/17 09:00 06/21/17 20:59 05/24/17 08:19 Docusate Sodium (Colace) 100 mg BID ORAL 05/23/17 09:00 06/21/17 08:59 05/24/17 08:18 Fish Oil (Fish Oil) 1,000 mg DAILY ORAL 05/23/17 09:00 06/21/17 08:59 05/24/17 08:18 Heparin Sodium (Porcine) (Heparin 5000 units/ml) 5,000 units EVERY 12 HOURS SUBQ 05/23/17 09:00 06/21/17 09:59 05/24/17 08:20 Insulin Aspart (NovoLOG) BEFORE MEALS AND HS SUBQ 05/23/17 06:30 06/21/17 06:29 05/23/17 16:46 Levetiracetam (Keppra) 2,000 mg Q12HR ORAL 05/23/17 09:00 06/20/17 22:59 05/24/17 08:19 Lorazepam (Ativan 2mg/ml 1ml) 2 mg Q2H PRN IV For Seizures 05/22/17 23:30 05/28/17 21:29 Losartan Potassium (Cozaar) 50 mg DAILY ORAL 05/23/17 09:00 06/21/17 08:59 05/23/17 10:25 Metronidazole (Flagyl) 500 mg Q8HR ORAL 05/24/17 14:00 05/31/17 13:59 05/24/17 13:15 Ondansetron HCl (Zofran) 4 mg Q4H PRN IVP Nausea & Vomiting 05/23/17 01:30 06/20/17 21:29 Sertraline HCl (Zoloft) 50 mg DAILY ORAL 05/23/17 09:00 06/21/17 08:59 05/24/17 08:18 Sodium Chloride 1,000 ml @ 75 mls/hr [id number] IVLG 05/22/17 23:00 06/20/17 22:29 05/24/17 05:17 Topiramate (Topamax) 200 mg Q12HR ORAL 05/23/17 09:00 06/20/17 22:59 05/24/17 08:18 Vancomycin HCl (Vanco rx to dose) 1 ea DAILY PRN MISC Per rx protocol 05/23/17 09:00 06/20/17 21:29 Vancomycin HCl/ Dextrose 250 ml @ 166.667 mls/hr Q12HR@0200,1400 IVPB 05/23/17 02:00 05/27/17 01:59 05/24/17 13:15 ELSA CEJA May 24, 2017 15:24
[2017-05-24 15:48] VITALS: BP 119/76
[2017-05-24 19:45] VITALS: BP 120/79
[2017-05-24] MEDS: Atorvastatin 20mg tab ORAL SCH (20:11)
[2017-05-25 00:10] VITALS: BP 118/70
[2017-05-25] MEDS: Vancomycin 1250mg/D5W 250ml 250 ML IVPB SCH (01:50)
[2017-05-25 03:51] VITALS: BP 116/65
[2017-05-25] MEDS: metroNIDAZOLE 500mg tab ORAL SCH (05:42)
[2017-05-25] MEDS: NovoLOG Insulin Flexpen SUBQ SCH ×2 (05:44→11:30)
[2017-05-25 07:35] LABS: BASOPHILS % (AUTO) 1.2 % (0.0-2.0); EOSINOPHILS % (AUTO) 8.2 % (0.0-3.0); MEAN CORPUSCULAR HEMOGLOBIN 29.9 PG (27.0-31.0); MEAN CORPUSCULAR HGB CONC 33.3 G/DL (32.0-36.0); MEAN CORPUSCULAR VOLUME 90 FL (80-99); MEAN PLATELET VOLUME 5.4 FL (6.5-10.1); MONOCYTES % (AUTO) 5.6 % (1.0-10.0); PLATELET COUNT 184 K/UL (150-450); RED BLOOD COUNT 4.62 M/UL (4.70-6.10); RED CELL DISTRIBUTION WIDTH 11.6 % (11.6-14.8); WHITE BLOOD COUNT 5.1 K/UL (4.8-10.8)
[2017-05-25 08:03] LABS: ANION GAP 10 (5-15); CALCIUM 8.9 mg/dL (8.6-10.2); CARBON DIOXIDE 23 mEQ/L (20-30); CHLORIDE 104 mEQ/L (98-107); CREATININE 0.8 mg/dL (0.7-1.2); GLOMERULAR FILTRATION RATE > 60 mL/min (>60); HEMOLYSIS 14; POTASSIUM 3.9 mEQ/L (3.4-4.9); SODIUM 137 mEQ/L (135-145); VALPROIC ACID 76 ug/mL (50-100)
[2017-05-25 08:15] VITALS: BP 106/68
[2017-05-25] MEDS: Docusate 100mg cap ORAL SCH (08:27)
[2017-05-25] MEDS: Cefepime HCl 1 GM in D5W 55 ML IVPB SCH (08:53)
[2017-05-25] MEDS: Dyna-Hex 2% Top Sol 8oz TOPIC SCH (08:53)
[2017-05-25] MEDS: Depakote 500mg tab ORAL SCH (08:54)
[2017-05-25] MEDS: Topiramate 100mg tab ORAL SCH (08:54)
[2017-05-25] MEDS: Sertraline 50mg tab ORAL SCH (08:54)
[2017-05-25] MEDS: Bethanechol 10mg Tab ORAL SCH ×2 (08:54→13:08)
[2017-05-25] MEDS: levETIRAcetam 500mg/5ml Liquid ORAL SCH (08:56)
[2017-05-25] MEDS: Heparin 5000 units/ml inj SUBQ SCH (08:59)
[2017-05-25] MEDS: Losartan 50mg tab ORAL SCH (09:00)
[2017-05-25 11:51] VITALS: BP 101/65
--- NOTE | 2017-05-25 12:19 | Neurology Progress Note ---
Interim History Interim History ROS Limited/Unobtainable: No Objective Physical Exam Last Vital Signs Date Time Temp Pulse Resp B/P (MAP) Pulse Ox O2 Delivery O2 Flow Rate FiO2 05/25/17 11:51 98.6 74 21 101/65 97 Room Air 05/25/17 06:35 21 05/23/17 04:00 2.0 Laboratory Tests Test 05/25/17 05:30 White Blood Count 5.1 K/UL (4.8-10.8) Red Blood Count 4.62 M/UL (4.70-6.10) L Hemoglobin 13.8 G/DL (14.2-18.0) L Hematocrit 41.5 % (42.0-52.0) L Mean Corpuscular Volume 90 FL (80-99) Mean Corpuscular Hemoglobin 29.9 PG (27.0-31.0) Mean Corpuscular Hemoglobin Concent 33.3 G/DL (32.0-36.0) Red Cell Distribution Width 11.6 % (11.6-14.8) Platelet Count 184 K/UL (150-450) Mean Platelet Volume 5.4 FL (6.5-10.1) L Neutrophils (%) (Auto) 52.0 % (45.0-75.0) Lymphocytes (%) (Auto) 33.0 % (20.0-45.0) Monocytes (%) (Auto) 5.6 % (1.0-10.0) Eosinophils (%) (Auto) 8.2 % (0.0-3.0) H Basophils (%) (Auto) 1.2 % (0.0-2.0) Sodium Level 137 mEQ/L (135-145) Potassium Level 3.9 mEQ/L (3.4-4.9) Chloride Level 104 mEQ/L (98-107) Carbon Dioxide Level 23 mEQ/L (20-30) Anion Gap 10 (5-15) Blood Urea Nitrogen 12 mg/dL (7-23) Creatinine 0.8 mg/dL (0.7-1.2) Estimat Glomerular Filtration Rate > 60 mL/min (>60) Glucose Level 83 mg/dL (74-106) Calcium Level 8.9 mg/dL (8.6-10.2) Valproic Acid (Depakene) Level 76 ug/mL (50-100) Impression/Recommendations Problems: (1) facial rash (2) Pseudoseizures (3) Seizure disorder (4) fever Status: progressing Recommendations neuro consult done esr,erika, lft hold unessential meds WYATT VIVAR May 25, 2017 12:19
--- NOTE | 2017-05-25 12:36 | Internal Med Progress Note ---
Subjective Date of Service: May 25, 2017 Physician Name Jimmie Orozco Attending Physician Jimmie Orozco Current Medications Medications (Trade) Dose Ordered Sig/Rufus Route PRN Reason Start Time Stop Time Status Last Admin Dose Admin Acetaminophen (Tylenol) 650 mg Q4H PRN ORAL Mild Pain/Temp > 100.5 05/23/17 01:30 06/20/17 21:29 Acetaminophen/ Hydrocodone Bitart ([place] 10/325) 1 ea Q4H PRN ORAL Severe Pain (Pain Scale 7-10) 05/23/17 01:30 05/28/17 21:29 Acetaminophen/ Hydrocodone Bitart ([place] 5/325) 1 tab Q4H PRN ORAL Moderate Pain (Pain Scale 4-6) 05/23/17 01:30 05/28/17 21:29 Albuterol Sulfate (Proventil MDI) 2 puff Q6H PRN INH Shortness of Breath 05/22/17 23:00 06/20/17 22:59 Atorvastatin Calcium (Lipitor) 20 mg BEDTIME ORAL 05/23/17 21:00 06/20/17 21:59 05/24/17 20:11 Bethanechol Chloride (Urecholine) 10 mg THREE TIMES A DAY ORAL 05/23/17 09:00 06/21/17 08:59 05/25/17 08:54 Cefepime HCl 1 gm/ Dextrose 55 ml @ 110 mls/hr EVERY 12 HOURS IVPB 05/23/17 09:00 05/29/17 03:59 05/25/17 08:53 Chlorhexidine Gluconate (Lyudmila-Hex 2%) 1 applic DAILY TOPIC 05/23/17 09:00 06/21/17 11:59 05/25/17 08:53 Clonazepam (KlonoPIN) 1 mg QHS ORAL 05/23/17 21:00 05/29/17 20:59 05/24/17 20:11 Dextrose (Dextrose 50%) STAT PRN IV Hypoglycemia 05/23/17 21:30 06/20/17 21:29 Divalproex Sodium (Depakote) 1,000 mg Q12HR ORAL 05/23/17 09:00 06/21/17 20:59 05/25/17 08:54 Docusate Sodium (Colace) 100 mg BID ORAL 05/23/17 09:00 06/21/17 08:59 05/24/17 18:20 Fish Oil (Fish Oil) 1,000 mg DAILY ORAL 05/23/17 09:00 06/21/17 08:59 05/25/17 10:15 Heparin Sodium (Porcine) (Heparin 5000 units/ml) 5,000 units EVERY 12 HOURS SUBQ 05/23/17 09:00 06/21/17 09:59 05/25/17 08:59 Insulin Aspart (NovoLOG) BEFORE MEALS AND HS SUBQ 05/23/17 06:30 06/21/17 06:29 05/23/17 16:46 Levetiracetam (Keppra) 2,000 mg Q12HR ORAL 05/23/17 09:00 06/20/17 22:59 05/25/17 08:56 Lorazepam (Ativan 2mg/ml 1ml) 2 mg Q2H PRN IV For Seizures 05/22/17 23:30 05/28/17 21:29 Losartan Potassium (Cozaar) 50 mg DAILY ORAL 05/23/17 09:00 06/21/17 08:59 05/23/17 10:25 Metronidazole (Flagyl) 500 mg Q8HR ORAL 05/24/17 14:00 05/31/17 13:59 05/25/17 05:42 Ondansetron HCl (Zofran) 4 mg Q4H PRN IVP Nausea & Vomiting 05/23/17 01:30 06/20/17 21:29 05/24/17 20:05 Sertraline HCl (Zoloft) 50 mg DAILY ORAL 05/23/17 09:00 06/21/17 08:59 05/25/17 08:54 Sodium Chloride 1,000 ml @ 75 mls/hr [id number] IVLG 05/22/17 23:00 06/20/17 22:29 05/25/17 10:58 Topiramate (Topamax) 200 mg Q12HR ORAL 05/23/17 09:00 06/20/17 22:59 05/25/17 08:54 Vancomycin HCl (Vanco rx to dose) 1 ea DAILY PRN MISC Per rx protocol 05/23/17 09:00 06/20/17 21:29 Vancomycin HCl/ Dextrose 250 ml @ 166.667 mls/hr Q12HR@0200,1400 IVPB 05/23/17 02:00 05/27/17 01:59 05/25/17 01:50 Allergies: Coded Allergies: PHENYTOIN (Verified Allergy, Mild, Rash, 10/18/15) stated patient had a rash reaction to dilantin PENICILLINS (Unverified Allergy, Unknown, 01/29/16) TRAMADOL (Unverified Allergy, Unknown, 09/24/14) ROS Limited/Unobtainable: No Constitutional: Reports: no symptoms HEENT: Reports: no symptoms Cardiovascular: Reports: no symptoms Respiratory: Reports: no symptoms Gastrointestinal/Abdominal: Reports: no symptoms Genitourinary: Reports: no symptoms Neurologic/Psychiatric: Reports: no symptoms Subjective 46 YO M admitted with seizure. No new seizure overnight. Await EEG results. Await home health auth from insurance. Objective Last Vital Signs Date Time Temp Pulse Resp B/P (MAP) Pulse Ox O2 Delivery O2 Flow Rate FiO2 05/25/17 11:51 98.6 74 21 101/65 97 Room Air 05/25/17 06:35 21 05/23/17 04:00 2.0 Laboratory Tests Test 05/25/17 05:30 White Blood Count 5.1 K/UL (4.8-10.8) Red Blood Count 4.62 M/UL (4.70-6.10) L Hemoglobin 13.8 G/DL (14.2-18.0) L Hematocrit 41.5 % (42.0-52.0) L Mean Corpuscular Volume 90 FL (80-99) Mean Corpuscular Hemoglobin 29.9 PG (27.0-31.0) Mean Corpuscular Hemoglobin Concent 33.3 G/DL (32.0-36.0) Red Cell Distribution Width 11.6 % (11.6-14.8) Platelet Count 184 K/UL (150-450) Mean Platelet Volume 5.4 FL (6.5-10.1) L Neutrophils (%) (Auto) 52.0 % (45.0-75.0) Lymphocytes (%) (Auto) 33.0 % (20.0-45.0) Monocytes (%) (Auto) 5.6 % (1.0-10.0) Eosinophils (%) (Auto) 8.2 % (0.0-3.0) H Basophils (%) (Auto) 1.2 % (0.0-2.0) Sodium Level 137 mEQ/L (135-145) Potassium Level 3.9 mEQ/L (3.4-4.9) Chloride Level 104 mEQ/L (98-107) Carbon Dioxide Level 23 mEQ/L (20-30) Anion Gap 10 (5-15) Blood Urea Nitrogen 12 mg/dL (7-23) Creatinine 0.8 mg/dL (0.7-1.2) Estimat Glomerular Filtration Rate > 60 mL/min (>60) Glucose Level 83 mg/dL (74-106) Calcium Level 8.9 mg/dL (8.6-10.2) Valproic Acid (Depakene) Level 76 ug/mL (50-100) Intake and Output 05/25/17 05/26/17 19:00 07:00 Intake Total 480 ml Balance 480 ml Intake Oral 480 ml # Bowel Movements 2 Objective General Appearance: WD/WN, no apparent distress, alert, mild distress EENT: PERRL/EOMI, normal ENT inspection, TMs normal Neck: non-tender, normal alignment, supple, normal inspection Cardiovascular: normal peripheral pulses, normal rate, regular rhythm, no gallop/murmur, no JVD Respiratory/Chest: chest wall non-tender, lungs clear, normal breath sounds, no respiratory distress, no accessory muscle use Abdomen: normal bowel sounds, non tender, soft, no organomegaly, no mass Extremities: normal range of motion Edema: trace edema 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 Await Neurology consult. Continue depakote and keppra for now. (2) Hypercholesteremia Assessment & Plan: Cont lipitor (3) HTN (hypertension) Assessment & Plan: Continue cozaar and norvasc (4) Seizure Assessment & Plan: See above. (5) Depression (6) Fever Assessment & Plan: Continue flagyl, vanco and cefepime. Await cultrue results. Status: stable Assessment/Plan Discharge home today with home health JIMMIE OROZCO May 25, 2017 12:36
[2017-05-25] MEDS ORDERED: NS 275ml ONE ×2 (15:24)
[2017-05-25] MEDS ORDERED: Tubing IV Secondary IV ONE (15:24)
--- NOTE | 2017-05-25 16:00 | Pulmonology Progress Note ---
Assessment/Plan Problems: (1) Seizure (2) HTN (hypertension) (3) Major depression Assessment/Plan improving no new complains all notes and meds reviewed dc planning Subjective ROS Limited/Unobtainable: No Constitutional: Reports: no symptoms HEENT: Repors: no symptoms Allergies: Coded Allergies: PHENYTOIN (Verified Allergy, Mild, Rash, 10/18/15) stated patient had a rash reaction to dilantin PENICILLINS (Unverified Allergy, Unknown, 01/29/16) TRAMADOL (Unverified Allergy, Unknown, 09/24/14) Objective Last 24 Hour Vital Signs Date Time Temp Pulse Resp B/P (MAP) Pulse Ox O2 Delivery O2 Flow Rate FiO2 05/25/17 11:51 98.6 74 21 101/65 97 Room Air 05/25/17 09:00 106/68 05/25/17 08:15 98.3 78 21 106/68 97 Room Air 05/25/17 06:35 80 18 Room Air 21 05/25/17 03:51 97.6 67 20 116/65 98 Room Air 05/25/17 00:10 97.6 74 20 118/70 96 Room Air 05/24/17 19:45 98.1 72 20 120/79 97 Room Air 05/24/17 19:29 80 18 Room Air 21 Intake and Output 05/25/17 05/26/17 19:00 07:00 Intake Total 960 ml Balance 960 ml Intake Oral 960 ml # Voids 1 # Bowel Movements 3 General Appearance: WD/WN HEENT: normocephalic, atraumatic Respiratory/Chest: chest wall non-tender, lungs clear Cardiovascular: normal peripheral pulses, normal rate Abdomen: normal bowel sounds, soft, non tender Genitourinary: normal external genitalia Extremities: no cyanosis Skin: no rash, no lesions Laboratory Tests 05/25/17 05:30: White Blood Count 5.1, Red Blood Count 4.62L, Hemoglobin 13.8L, Hematocrit 41.5L , Mean Corpuscular Volume 90, Mean Corpuscular Hemoglobin 29.9, Mean Corpuscular Hemoglobin Concent 33.3, Red Cell Distribution Width 11.6, Platelet Count 184, Mean Platelet Volume 5.4L, Neutrophils (%) (Auto) 52.0, Lymphocytes ( %) (Auto) 33.0, Monocytes (%) (Auto) 5.6, Eosinophils (%) (Auto) 8.2H, Basophils (%) (Auto) 1.2, Sodium Level 137, Potassium Level 3.9, Chloride Level 104, Carbon Dioxide Level 23, Anion Gap 10, Blood Urea Nitrogen 12, Creatinine 0.8, Estimat Glomerular Filtration Rate > 60, Glucose Level 83, Calcium Level 8.9, Valproic Acid (Depakene) Level 76 ELSA CEJA May 25, 2017 16:00
--- NOTE | 2017-05-25 16:59 | Cardiology Report ---
APPROVED REPORT EKG Measurement Heart [id number] Sinus tachycardia Otherwise normal ECG
--- NOTE | 2017-05-25 17:25 | Consultation ---
History of Present Illness General Date patient seen: May 24, 2017 Chief Complaint: Seizure Present Illness HPI the pt is a 46 yo male with hx of depression and mr , patient states he was walking in the street 05/21/2017. The patient had a seizure. During the eval the pt was withdrawn he is a poor historian and was anxious Allergies: Coded Allergies: PHENYTOIN (Verified Allergy, Mild, Rash, 10/18/15) stated patient had a rash reaction to dilantin PENICILLINS (Unverified Allergy, Unknown, 01/29/16) TRAMADOL (Unverified Allergy, Unknown, 09/24/14) Medication History Scheduled Amlodipine Besylate (Norvasc), 2.5 MG ORAL DAILY Atorvastatin Calcium* (Atorvastatin Calcium*), 20 MG ORAL BEDTIME, (Reported) Bethanechol* (Bethanechol*), 10 MG ORAL THREE TIMES A DAY, (Reported) Cholecalciferol (Vitamin D3) (Vitamin D3), 5,000 UNIT PO DAILY, (Reported) Clonazepam* (Klonopin*), 5 MG ORAL QHS, (Reported) Clonazepam* (Klonopin*), Unknown Dose ORAL Q6H, (Reported) Docusate Sodium* (Colace*), 100 MG ORAL BID, (Reported) Levetiracetam (Keppra), 2,000 MG ORAL Q12HR Losartan Potassium* (Losartan Potassium*), 50 MG ORAL DAILY, (Reported) [place]-3 Fatty Acids/Fish Oil* (Fish Oil 1,000 Mg Softgel*), 1 CAP ORAL DAILY, ( Reported) Omeprazole (Prilosec), 40 MG ORAL DAILY, (Reported) Sertraline Hcl* (Zoloft*), 50 MG ORAL DAILY, (Reported) Topiramate (Topamax), 200 MG ORAL Q12HR Valproic Acid (Valproic Acid), 1,250 MG ORAL Q12HR Scheduled PRN Albuterol Sulfate* (Proair Hfa*), 2 PUFFS INH Q6H PRN for Shortness of Breath, ( Reported) Discontinued Medications Divalproex Sodium (Depakote), 500 MG PO BID, (Reported) Discontinued Reason: Medication dose changed Topiramate* (Topamax*), Unknown Dose ORAL DAILY, (Reported) Discontinued Reason: Medication dose changed Patient History History Provided By: Patient, Medical Record, PMD Healthcare decision maker Resuscitation status Full Code Advanced Directive on File No Past Medical/Surgical History Past Medical/Surgical History: (1) Near syncope (2) clavicle contusion (3) ACS (acute coronary syndrome) (4) Chest wall trauma (5) Retrosternal chest pain (6) [id number] (7) Hypokalemia (8) Altered mental status (9) Chest pain (10) Seizure disorder (11) Constipation (12) Abdominal pain of unknown etiology (13) Constipation (14) Abdominal pain of unknown etiology (15) Episode of generalized weakness (16) Hypokalemia (17) Episode of generalized weakness (18) Hypokalemia (19) Headache due to trauma (20) possible pseudosz (21) seizure (22) Back pain (23) Back pain (24) Unspecified injury of lower back, sequela (25) Unspecified injury of lower back, sequela (26) Hyponatremia (27) seizures (28) probably seizure disorder (29) Encephalopathy (30) Altered mental status (31) Development delay (32) GERD (gastroesophageal reflux disease) (33) Nausea & vomiting (34) Abdominal pain (35) HTN (hypertension) (36) History of asthma (37) Alcohol intoxication (38) Hyponatremia (39) Altered mental status (40) Abdominal pain (41) etoh withdrawal (42) Acute alcoholic intoxication (43) Substance abuse (44) Seizure (45) Epileptic seizure, generalized (46) Seizure disorder (47) Obesity (48) DM (diabetes mellitus) (49) Hyponatremia (50) Mental retardation (51) Seizure disorder, complex partial, with intractable epilepsy (52) Shoulder pain, left (53) Depression (54) Development delay (55) Seizure disorder, complex partial, with intractable epilepsy (56) Epileptic seizure, generalized (57) Tendinopathy of left shoulder (58) Development delay (59) Swelling of right hand (60) Seizure disorder (61) Uncontrolled seizures (62) Noncompliance (63) Major depression (64) Seizure (65) HTN (hypertension) (66) Depression (67) Hypercholesteremia (68) Seizure disorder (69) Seizure (70) Seizure disorder (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 (72) facial rash (73) fever Review of Systems Psychiatric: Reports: prior hx, anxiety, depressed feelings, emotional problems Physical Exam General Appearance: no apparent distress, alert, overweight Neurologic: alert, responsive, depressed affect Last 24 Hour Vital Signs Date Time Temp Pulse Resp B/P (MAP) Pulse Ox O2 Delivery O2 Flow Rate FiO2 05/25/17 11:51 98.6 74 21 101/65 97 Room Air 05/25/17 09:00 106/68 05/25/17 08:15 98.3 78 21 106/68 97 Room Air 05/25/17 06:35 80 18 Room Air 21 05/25/17 03:51 97.6 67 20 116/65 98 Room Air 05/25/17 00:10 97.6 74 20 118/70 96 Room Air 05/24/17 19:45 98.1 72 20 120/79 97 Room Air 05/24/17 19:29 80 18 Room Air 21 Intake and Output 05/25/17 05/26/17 19:00 07:00 Intake Total 960 ml Balance 960 ml Intake Oral 960 ml # Voids 1 # Bowel Movements 3 Laboratory Tests Test 05/25/17 05:30 White Blood Count 5.1 K/UL (4.8-10.8) Red Blood Count 4.62 M/UL (4.70-6.10) L Hemoglobin 13.8 G/DL (14.2-18.0) L Hematocrit 41.5 % (42.0-52.0) L Mean Corpuscular Volume 90 FL (80-99) Mean Corpuscular Hemoglobin 29.9 PG (27.0-31.0) Mean Corpuscular Hemoglobin Concent 33.3 G/DL (32.0-36.0) Red Cell Distribution Width 11.6 % (11.6-14.8) Platelet Count 184 K/UL (150-450) Mean Platelet Volume 5.4 FL (6.5-10.1) L Neutrophils (%) (Auto) 52.0 % (45.0-75.0) Lymphocytes (%) (Auto) 33.0 % (20.0-45.0) Monocytes (%) (Auto) 5.6 % (1.0-10.0) Eosinophils (%) (Auto) 8.2 % (0.0-3.0) H Basophils (%) (Auto) 1.2 % (0.0-2.0) Sodium Level 137 mEQ/L (135-145) Potassium Level 3.9 mEQ/L (3.4-4.9) Chloride Level 104 mEQ/L (98-107) Carbon Dioxide Level 23 mEQ/L (20-30) Anion Gap 10 (5-15) Blood Urea Nitrogen 12 mg/dL (7-23) Creatinine 0.8 mg/dL (0.7-1.2) Estimat Glomerular Filtration Rate > 60 mL/min (>60) Glucose Level 83 mg/dL (74-106) Calcium Level 8.9 mg/dL (8.6-10.2) Valproic Acid (Depakene) Level 76 ug/mL (50-100) Height (Feet): 5 Height (Inches): 0.00 Weight (Pounds): 213 Assessment/Plan Status: doing well, stable Assessment/Plan MDD, dd -cont zoloft -cont current treatment Katarzyna Valle M.D. May 25, 2017 17:25
--- NOTE | 2017-05-25 17:26 | General Progress Note ---
Assessment/Plan Status: doing well, stable, progressing Subjective Date patient seen: May 25, 2017 Constitutional: Reports: malaise, weakness Neurologic/Psychiatric: Reports: anxiety, depressed, emotional problems Allergies: Coded Allergies: PHENYTOIN (Verified Allergy, Mild, Rash, 10/18/15) stated patient had a rash reaction to dilantin PENICILLINS (Unverified Allergy, Unknown, 01/29/16) TRAMADOL (Unverified Allergy, Unknown, 09/24/14) Subjective the pt was found in bed cont to be a poor historian . Objective Last 24 Hour Vital Signs Date Time Temp Pulse Resp B/P (MAP) Pulse Ox O2 Delivery O2 Flow Rate FiO2 05/25/17 11:51 98.6 74 21 101/65 97 Room Air 05/25/17 09:00 106/68 05/25/17 08:15 98.3 78 21 106/68 97 Room Air 05/25/17 06:35 80 18 Room Air 21 05/25/17 03:51 97.6 67 20 116/65 98 Room Air 05/25/17 00:10 97.6 74 20 118/70 96 Room Air 05/24/17 19:45 98.1 72 20 120/79 97 Room Air 05/24/17 19:29 80 18 Room Air 21 Intake and Output 05/25/17 05/26/17 19:00 07:00 Intake Total 960 ml Balance 960 ml Intake Oral 960 ml # Voids 1 # Bowel Movements 3 Laboratory Tests 05/25/17 05:30: White Blood Count 5.1, Red Blood Count 4.62L, Hemoglobin 13.8L, Hematocrit 41.5L , Mean Corpuscular Volume 90, Mean Corpuscular Hemoglobin 29.9, Mean Corpuscular Hemoglobin Concent 33.3, Red Cell Distribution Width 11.6, Platelet Count 184, Mean Platelet Volume 5.4L, Neutrophils (%) (Auto) 52.0, Lymphocytes ( %) (Auto) 33.0, Monocytes (%) (Auto) 5.6, Eosinophils (%) (Auto) 8.2H, Basophils (%) (Auto) 1.2, Sodium Level 137, Potassium Level 3.9, Chloride Level 104, Carbon Dioxide Level 23, Anion Gap 10, Blood Urea Nitrogen 12, Creatinine 0.8, Estimat Glomerular Filtration Rate > 60, Glucose Level 83, Calcium Level 8.9, Valproic Acid (Depakene) Level 76 Height (Feet): 5 Height (Inches): 0.00 Weight (Pounds): 213 General Appearance: no apparent distress, alert, confused, overweight Neurologic: alert, depressed affect Katarzyna Valle M.D. May 25, 2017 17:26
--- NOTE | 2017-05-25 22:30 | Consultation ---
DATE OF CONSULTATION: 05/25/2017 NEUROLOGICAL CONSULTATION CONSULTING PHYSICIAN: Nikunj Martínez M.D. REQUESTING PHYSICIAN: Jimmie Lang M.D. HISTORY OF PRESENT ILLNESS: This is a 46-year-old ,man who is known to me from a previous consultations, now admitted for exacerbation of seizure activities. In addition, the patient informed me that in the last couple of days, he developed facial rash and fevers. The patient apparently had a generalized seizure activity in the field at his facility and continued to have recurrent seizures. He was treated with Versed 5 mg IM and on arrival to the hospital, there was no further seizure event. His initial workup included a lab work with unremarkable CBC study. Chemistry panel, sodium 131 and CPK 250. Toxicology panel revealed valproic acid level of 17. Urinalysis was normal. Imaging studies, limited chest x-ray, which revealed no acute process. The patient has a long history of alcohol abuse and chronic seizure disorder. Previous assessment revealed presence of pseudoseizures although true epileptic activity not ruled out. He presented with intractable attacks of seizure like activity. This required a gradual increase in use of anticonvulsants taking currently at the maximum doses. Apparently, he is non-compliant with Depakote. PAST MEDICAL HISTORY: The patient has a history of hypertension, developmental delay, history of major depression, anxiety, history of gastroesophageal reflux disease, chronic obstructive pulmonary disease, bronchial asthma, hyperlipidemia, and morbid obesity. CURRENT MEDICATIONS: His treatment list included Topamax 200 mg b.i.d., Zoloft 50 mg daily, Zofran, Flagyl, losartan, Keppra 2000 b.i.d., [place] p.r.n., Depakote 1000 b.i.d., Klonopin 1 mg at bedtime, urecholine, and Lipitor. Currently antibiotics added. ALLERGIES: Penicillin, phenytoin, and tramadol. SOCIAL HISTORY: Resident of a [facility] and [facility] facility. FAMILY HISTORY: Noncontributory. REVIEW OF SYSTEMS: The patient indicate presence of headaches, generalized weakness, and having seizures. He denies chest pain or palpitations. Denies respiratory difficulties, but admitted having a facial rash for the last couple of days. PHYSICAL EXAMINATION: GENERAL: This is a well-developed, obese man, found to be asleep. He is chapman-faced. There is a facial rash, acute. MUSCULOSKELETAL EXAMINATION: Unremarkable except tension to palpation in the left shoulder. Peripheral pulses 1+ symmetric. MENTAL STATUS: Arousable, responding yes and no, but he is coherent. Follow commands. CRANIAL NERVE II: Pupils both responding to light and accommodation. Extraocular movement full range. CRANIAL NERVE V: Normal corneal responses. CRANIAL NERVE VII: No facial asymmetry. CRANIAL NERVE VIII: Normal hearing. CRANIAL NERVES IX THROUGH XII: Tongue is in midline. Symmetric palate elevation. MOTOR EXAMINATION: Able to lift arms and legs against the gravity. Deep tendon reflexes 1+ symmetric. SENSORY EXAM: Normal to pin stimulation. GAIT: Slow, somewhat unstable. IMPRESSION: 1. Persistent epileptiform activity due to pseudoseizure and probably generalized seizure activities. 2. Noncompliance with subtherapeutic anticonvulsants. 3. New onset of facial rash and fevers, rule out a drug rash, rule out a systemic lupus erythematosus. 4. Obesity. 5. Chronic obstructive pulmonary disease. 6. Hypertension. 7. Depression. RECOMMENDATION: 1. Hold unessential treatment. 2. sedimentation rate, CRP, NICOLE, B12, folate, and thyroid function studies. 3. Check Keppra level. 4. Continue treatment for underlying infection. 5. We will follow with you. Thank you for allowing me to see this interesting patient in neurologic consultation. Nikunj Martínez M.D. DR: CANDIDO JOB#: [id number] CC:
--- NOTE | 2017-05-27 18:18 | Discharge Summary ---
Discharge Summary Hospital Course Date of Admission May 21, 2017 at 16:25 Date of Discharge May 25, 2017 at 15:25 Admitting Diagnosis uncontrolled seizures/fever HPI Rene Sykes is a 46 year old male who was admitted on May 21, 2017 at 16:25 for Uncontrolled Seizures/Fever Hospital Course [id number] Discharge Discharge Disposition Patient was discharged to home with Discharge Diagnoses: Rosa Stearns NP May 27, 2017 18:18
--- NOTE | 2017-05-28 04:45 | Discharge Summary 2 SIG ---
DATE OF ADMISSION: 05/21/2017 DATE OF DISCHARGE: 05/25/2017 CONSULTANTS: 1. Nikunj Martínez M.D. 2. Katarzyna Valle M.D. 3. Jodi Grier M.D. BRIEF HOSPITAL COURSE: The patient is a 46-year-old male with history of seizure disorder. Last admitted to [facility] in 12/2016. He was walking on the street and had a seizure witnessed by bystanders. EMS was called and received Versed in the field. He was then transported to [facility]. On evaluation at ED, central line was placed on the right internal jugular. The patient was febrile with temperature of 102.2. He was given IV hydration. Blood work showed no leukocytosis. Valproic acid was less than 3. He was loaded with valproate sodium and was admitted to [facility] for evaluation of fever and seizures. He was given empirically Flagyl, vancomycin, and cefepime. The patient apparently is noncompliant with his Depakote as anticonvulsant levels were subtherapeutic. He also complained of facial rash and fever. He had an EEG done that showed abnormal right focal discharges. He was diagnosed to have major depressive disorder and was continued on Zoloft. There was no recurrence of seizures. The patient was eventually discharged to home with home health. FINAL DIAGNOSES: 1. Seizure disorder with acute exacerbation. 2. Hypercholesterolemia. 3. Hypertension. 4. Depression. 5. Fever. 6. Noncompliance with subtherapeutic anticonvulsants. 7. New onset facial rash and fever. 8. Obesity. 9. Chronic obstructive pulmonary disease. DISPOSITION: The patient was discharged to home with home health. DISCHARGE MEDICATIONS: Refer to medication list. Jimmie Lang M.D. I have been assigned to dictate discharge summary on this account and I was not involved in the patient's management. Rosa Stearns N.P. DR: SHELBI JOB#: [id number] CC: HARRY
== END 2017-05-25 15:25 | disposition home health service (06) | DRG 101 ==
LOC: EDSEX 13:29 → EDBD 13:29 → EMR 15:01 → EDBD 16:25 → 2E 16:25 → EDBEDREQ 16:54 → 2E 21:54 → 4E 05-22 22:24
PROC: 05HM33Z Insertion of Infusion Device into Right Internal Jugular Vein, Percutaneous Approach (ICD-10-PCS; principal; 2017-05-21)
DX: G40.909 Epilepsy, unspecified, not intractable, without status epilepticus (principal); I10 Essential (primary) hypertension; Z88.6 Allergy status to analgesic agent; Z88.0 Allergy status to penicillin; Z88.8 Allergy status to other drugs, medicaments and biological substances; E78.00 Pure hypercholesterolemia, unspecified; F32.9 Major depressive disorder, single episode, unspecified; F79 Unspecified intellectual disabilities; K21.9 Gastro-esophageal reflux disease without esophagitis; E11.9 Type 2 diabetes mellitus without complications; Z91.19 Patient's noncompliance with other medical treatment and regimen; R21 Rash and other nonspecific skin eruption; R50.9 Fever, unspecified; J44.9 Chronic obstructive pulmonary disease, unspecified; R51 Headache; E66.9 Obesity, unspecified
CPT/HCPCS: 36415; 71010; 80048; 80053; 80164; 80202; 80300; 80329; 81003; 82550; 82962; 85025; 87040; 93005; 94664; 95819; 99285; J1815; J2405

== ENCOUNTER 2017-07-19 17:28 | Emergency (ER) | payer MEDICARE, MEDICAID ==
[~2017-07-19] VITALS: Ht 157.5 cm; Wt 79.4 kg
[2017-07-19] MEDS ORDERED: LORAZEPAM0.5 MG ORAL (17:33)
[2017-07-19] MEDS ORDERED: TRAZODONE HCL300 MG ORAL (17:33)
[2017-07-19] MEDS ORDERED: PHENOBARBITAL32.4 MG PO (17:33)
[2017-07-19 17:36] VITALS: BP 129/78
[2017-07-19] MEDS ORDERED: levETIRAcetam 500 MG in D5W 110 ML IV ONE (17:45)
[2017-07-19] MEDS ORDERED: levETIRAcetam 500mg vial IV ONE (18:10)
[2017-07-19 18:17] LABS: BASOPHILS % (AUTO) 2.6 % (0.0-2.0); EOSINOPHILS % (AUTO) 2.6 % (0.0-3.0); MEAN CORPUSCULAR HEMOGLOBIN 28.3 PG (27.0-31.0); MEAN CORPUSCULAR HGB CONC 31.9 G/DL (32.0-36.0); MEAN CORPUSCULAR VOLUME 89 FL (80-99); MEAN PLATELET VOLUME 5.6 FL (6.5-10.1); MONOCYTES % (AUTO) 7.5 % (1.0-10.0); NEUTROPHILS % (AUTO) 65.3 % (45.0-75.0); PLATELET COUNT 206 K/UL (150-450); RED BLOOD COUNT 5.46 M/UL (4.70-6.10); RED CELL DISTRIBUTION WIDTH 11.7 % (11.6-14.8); WHITE BLOOD COUNT 7.9 K/UL (4.8-10.8)
[2017-07-19 18:29] LABS: ACETAMINOPHEN < 10 MCG/ML (10-30); ALANINE AMINOTRANSFERASE 35 U/L (12-78); ALCOHOL 69 mg/dL; ANION GAP 13 mmol/L (5-15); ASPARTATE AMINO TRANSFERASE 27 U/L (15-37); CALCIUM 9.4 MG/DL (8.5-10.1); CARBON DIOXIDE 23 MMOL/L (21-32); CHLORIDE 105 MMOL/L (98-107); CREATININE 0.7 MG/DL (0.55-1.30); GLOMERULAR FILTRATION RATE > 60 mL/min (>60); POTASSIUM 3.6 MMOL/L (3.5-5.1); SODIUM 141 MMOL/L (136-145); TOTAL PROTEIN 7.9 G/DL (6.4-8.2)
--- NOTE | 2017-07-19 18:30 | Emergency Room Report ---
History of Present Illness General Chief Complaint: Seizure Source: Patient, Medical Record Present Illness HPI 46-year-old male presents ED status post seizure. On the street. No reported head trauma. Patient has history of seizures. His multiple medications. Patient resides in boarding care facility. Patient is well-known: patient has been here multiple times in the past for seizure and pseudoseizure. h/o alcohol abuse. h/o noncompliance with his medications. Patient showing no signs of distress upon arrival. Denies any headache, blurry vision. Denies chest pain or shortness of breath. No aggravating or leading factors. No other associated symptoms Allergies: Coded Allergies: PHENYTOIN (Verified Allergy, Mild, Rash, 10/18/15) stated patient had a rash reaction to dilantin PENICILLINS (Unverified Allergy, Unknown, 01/29/16) TRAMADOL (Unverified Allergy, Unknown, 09/24/14) Patient History Past Medical History: DM, HTN Past Surgical History: none Pertinent Family History: none Social History: Reports: alcohol use, Denies: smoking, drug use Immunizations: UTD Reviewed Nursing Documentation: PMH: Agreed, PSxH: Agreed Nursing Documentation-PMH Hx Cardiac Problems: No Hx Hypertension: Yes Hx Pacemaker: No Hx Asthma: No Hx Diabetes: Yes Hx Cancer: No Hx Gastrointestinal Problems: Yes Hx Neurological Problems: Yes Hx Cerebrovascular Accident: No Hx Seizures: Yes Hx Epilepsy: Yes Hx Headaches: Yes Review of Systems All Other Systems: negative except mentioned in HPI Physical Exam Vital Signs Date Time Temp Pulse Resp B/P (MAP) Pulse Ox O2 Delivery O2 Flow Rate FiO2 07/19/17 17:24 98.1 104 18 129/81 98 Room Air Sp02 EP Interpretation: reviewed, normal General Appearance: no apparent distress, alert, GCS 15, non-toxic, obese Head: normocephalic, atraumatic Eyes: bilateral eye normal inspection, bilateral eye PERRL ENT: hearing grossly normal, normal pharynx, no angioedema, normal voice Neck: full range of motion, supple/symm/no masses Respiratory: chest non-tender, lungs clear, normal breath sounds, speaking full sentences Cardiovascular #1: regular rate, rhythm, no edema Cardiovascular #2: 2+ carotid (R), 2+ carotid (L), 2+ radial (R), 2+ radial (L) , 2+ dorsalis pedis (R), 2+ dorsalis pedis (L) Gastrointestinal: normal bowel sounds, non tender, soft, non-distended, no guarding, no rebound Rectal: deferred Genitourinary: normal inspection, no CVA tenderness Musculoskeletal: back normal, gait/station normal, normal range of motion, non- tender Neurologic: alert, oriented x3, responsive, motor strength/tone normal, sensory intact, speech normal Psychiatric: judgement/insight normal, memory normal, mood/affect normal, no suicidal/homicidal ideation Reflexes: 3+ bicep (R), 3+ bicep (L), 3+ tricep (R), 3+ tricep (L), 3+ knee (R) , 3+ knee (L) Skin: normal color, no rash, warm/dry, well hydrated Lymphatic: no adenopathy Medical Decision Making Diagnostic Impression: Primary Impression: Seizure disorder Additional Impression: Alcohol intoxication Qualified Codes: F10.920 - Alcohol use, unspecified with intoxication, uncomplicated ER Course Hospital Course 46-year-old M presents to ED status post seizure. h/o ETOH abuse Differential diagnosis includes- breakthrough seizure, alcohol abuse, noncompliance with medication Clinical course Patient placed on stretcher. Initial history and physical I ordered labs, IV fluids, Keppra Labs-electrolytes okay, no leukocytosis, hemoglobin/hematocrit stable. Alcohol level elevated, depakote level subtherapeutic given loading dose of depakote Patient allowed to rest is now awake alert oriented x3. ambulating without difficulty. transport will be arranged to take patient to his boarding care Diagnosis - ETOH intoxication, seizure disorder stable and discharged to home. Followup with PMD. Return to ED if symptoms recur or worsen Labs Test 07/19/17 17:55 White Blood Count 7.9 K/UL (4.8-10.8) Red Blood Count 5.46 M/UL (4.70-6.10) Hemoglobin 15.5 G/DL (14.2-18.0) Hematocrit 48.4 % (42.0-52.0) Mean Corpuscular Volume 89 FL (80-99) Mean Corpuscular Hemoglobin 28.3 PG (27.0-31.0) Mean Corpuscular Hemoglobin Concent 31.9 G/DL (32.0-36.0) Red Cell Distribution Width 11.7 % (11.6-14.8) Platelet Count 206 K/UL (150-450) Mean Platelet Volume 5.6 FL (6.5-10.1) Neutrophils (%) (Auto) 65.3 % (45.0-75.0) Lymphocytes (%) (Auto) 22.0 % (20.0-45.0) Monocytes (%) (Auto) 7.5 % (1.0-10.0) Eosinophils (%) (Auto) 2.6 % (0.0-3.0) Basophils (%) (Auto) 2.6 % (0.0-2.0) Sodium Level 141 MMOL/L (136-145) Potassium Level 3.6 MMOL/L (3.5-5.1) Chloride Level 105 MMOL/L (98-107) Carbon Dioxide Level 23 MMOL/L (21-32) Anion Gap 13 mmol/L (5-15) Blood Urea Nitrogen 8 mg/dL (7-18) Creatinine 0.7 MG/DL (0.55-1.30) Estimat Glomerular Filtration Rate > 60 mL/min (>60) Glucose Level 92 MG/DL (74-106) Calcium Level 9.4 MG/DL (8.5-10.1) Total Bilirubin 0.3 MG/DL (0.2-1.0) Aspartate Amino Transf (AST/SGOT) 27 U/L (15-37) Alanine Aminotransferase (ALT/SGPT) 35 U/L (12-78) Alkaline Phosphatase 69 U/L (46-116) Total Protein 7.9 G/DL (6.4-8.2) Albumin 3.9 G/DL (3.4-5.0) Globulin 4.0 g/dL Albumin/Globulin Ratio 1.0 (1.0-2.7) Salicylates Level 1.9 ug/mL (2.8-20) Acetaminophen Level < 10 MCG/ML (10-30) Valproic Acid (Depakene) Level < 3 MCG/ML (50-100) Phenobarbital Level < 1.0 ug/mL (15-40) Serum Alcohol 69 mg/dL Last Vital Signs Date Time Temp Pulse Resp B/P (MAP) Pulse Ox O2 Delivery O2 Flow Rate FiO2 07/19/17 17:40 98.4 07/19/17 17:36 100 20 129/78 100 Room Air Status: improved Disposition: HOME, SELF-CARE Condition: Stable Referrals: NON PHYSICIAN (PCP) ZEKE NEWSOME M.D. Jul 19, 2017 18:30
[2017-07-19 18:32] LABS: VALPROIC ACID < 3 MCG/ML (50-100)
[2017-07-19] MEDS ORDERED: Valproate Sodium INJ 500 MG in NS 55 ML IV ONE (18:45)
[2017-07-19 20:00] VITALS: BP 122/89
[2017-07-19] MEDS ORDERED: Depakote 500mg tab ORAL ONE (20:00)
[2017-07-19 22:53] VITALS: BP 128/99
[2017-07-19 22:55] VITALS: BP 128/99
== END 2017-07-19 22:55 | disposition home or self-care (01) ==
LOC: EDBD 17:28 → EMR 17:58
DX: G40.909 Epilepsy, unspecified, not intractable, without status epilepticus (principal); F10.129 Alcohol abuse with intoxication, unspecified; Z91.14 Patient's other noncompliance with medication regimen; I10 Essential (primary) hypertension; E11.9 Type 2 diabetes mellitus without complications; Z88.0 Allergy status to penicillin; Z88.6 Allergy status to analgesic agent
CPT/HCPCS: 36415; 80053; 80164; 80184; 82962; 85025; 96361; 96365; 96375; 99284; G0480; J1953; 80329